=== PATIENT | male | born 1950 | race Caucasian/White ===

== ENCOUNTER 2016-05-14 10:18 | Emergency (ER) | payer OTHER, MEDICARE ==
[~2016-05-14] VITALS: Ht 180.3 cm; Wt 152.0 kg
[~2016-05-14 10:18] MED LIST: ACYC400T PO; BORT3.5V INJ; CEPH500C2 PO; DIPH25TA23 PO; ESCI20TA30 PO; INSU100I14 SQ; INSU300I SQ; LOVA40TA PO; MELO-267 PO; METO25TA6 PO; OLME20TA15 PO; RIVA20TA PO; TORS20TA4 PO; [UNRECOGNIZED DRUG - CODE] PO
[2016-05-14 10:20] VITALS: TEMP 98.3; Ht 180.3 cm; Wt 152.0 kg
--- OUTSIDE RECORDS SUMMARY | 2016-05-14 10:22 | XMS REPORT | Continuity of Care Document ---
Author Author [facility] Organization [facility] Address Unknown Phone Unavailable Allergies Active Description Code Type Severity Reaction Onset Reported/Identified Relationship to Patient Clinical Status Yes No Allergy Information Drug Allergy 05/19/2012 Yes No Known Drug Allergies Drug Allergy 05/19/2012 Yes No Known Medication Allergies NKMA N/A N/A 03/04/2015 Medications Problems Date Dx Coded Attending Type Code Diagnosis Diagnosed By 05/19/2012 Gerard Shi DO Final 250.00 DM2/NOS UNCOMP NSU 05/19/2012 Gerard Shi DO Final 403.90 HTN CKD NOS I-IV/NOS 05/19/2012 Gerard Shi DO Final 585.9 CHRONIC KIDNEY DIS NOS 05/19/2012 Gerard Shi DO Final 808.0 FRACTURE ACETABULUM-CLSD 05/19/2012 Gerard Shi DO Final 808.2 FRACTURE OF PUBIS-CLOSED 05/19/2012 Gerard Shi DO External E849.0 HOME ACCIDENTS 05/19/2012 Gerard Shi DO External E881.0 FALL FROM LADDER Procedures Results Encounters ACCT No. Visit Date/Time Discharge Status Pt. Type Provider Facility Loc./Unit Complaint [id number] 05/19/2012 19:26:00 2012 15:33:00 DIS Inpatient Gerard Shi DO [facility] on [address]
--- OUTSIDE RECORDS SUMMARY | 2016-05-14 10:22 | XMS REPORT | Continuity of Care Document ---
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 If you do not see the information that you expected, contact Release of Information in the Health Information Management department at [phone] for further assistance in locating additional records.[facility] Active Allergies and Adverse Reactions No Known Allergies Current Medications Prescription Sig. Disp. Refills Start End Date Status Date citalopram (CELEXA) 40 mg Take 20 mg by mouth Active tablet daily. metoprolol (LOPRESSOR) 50 Take 50 mg by mouth twice Active mg tablet daily. Febuxostat (ULORIC) 80 mg Take 1 Tab by mouth Active tab daily. DEXTROSE (GLUCOSE PO) Take 1 Tab by mouth as Active Needed. acyclovir (ZOVIRAX) 400 Take 1 Tab by mouth twice 60 Tab 5 10/15/19 Active mg tablet daily. Starting on Day -1 15 LORazepam (ATIVAN) 0.5 mg Take 1-2 Tabs by mouth 45 Tab 0 10/15/19 Active tablet every 6 hours as needed 15 for Nausea, Vomiting or Other... (Anxiety). Do not start until after Benadryl/Ativan pump is discontinued. ondansetron (ZOFRAN) 8 mg Take 1 Tab by mouth every 30 Tab 1 10/15/19 Active tablet 8 hours as needed for 15 Nausea or Vomiting. zolpidem (AMBIEN) 10 mg Take 0.5 Tabs by mouth at 30 Tab 10/15/19 Active tablet bedtime as needed for 15 Sleep. +++HOLD FOR TRANSPLANT+++ melatonin 3 mg tab Take 2 Tabs by mouth at 10/15/19 Active bedtime daily. +++HOLD 15 FOR TRANSPLANT+++ insulin aspart (NOVOLOG) Inject 0-14 Units into 3 box 3 10/19/19 Active 100 unit/mL flexPEN area(s) as directed five 15 times daily. lovastatin(+) (MEVACOR) Take 1 Tab by mouth at 90 Tab 3 10/28/19 Active 40 mg tablet bedtime daily. HOLD 15 DURING TRANSPLANT calcium carbonate-vitamin Take 1 Tab by mouth 10/28/19 Active D3 (CALCIUM 500 + D) daily. +++HOLD FOR 15 1,250 mg (500 mg TRANSPLANT+++ elemental Ca)-400 units tablet Fish Oil-[place]-3 Fatty +++HOLD FOR TRANSPLANT+++ 10/28/19 Active Acids (FISH OIL) 15 300-1,000 mg cap Cholecalciferol (Vitamin +++HOLD FOR TRANSPLANT+++ 10/28/19 Active D3) 2,000 unit cap 15 ascorbic acid (VITAMIN C) Take 1 Tab by mouth 90 Tab 3 10/28/19 Active 500 mg tablet daily. +++HOLD FOR 15 TRANSPLANT+++ MV with Take 1 Tab by mouth 10/28/19 Active Tmi-Oudsblon-Embioi daily. +++HOLD FOR 15 0.4-300-250 mg-mcg-mcg TRANSPLANT+++Kroger tab generic brand similar to Centrum Silver diphenhydrAMINE Take 2 Caps by mouth at 30 Cap 10/28/19 Active (BENADRYL) 25 mg capsule bedtime daily. +++HOLD 15 FOR TRANSPLANT+++ insulin aspart (NOVOLOG) Inject 25 Units into 3 box 3 10/28/19 Active 100 unit/mL flexPEN area(s) as directed three 15 times daily with meals. insulin detemir(+) Inject 30 Units into 10 mL 12 10/28/19 Active (LEVEMIR) 100 unit/mL area(s) as directed 15 soln daily. trimethoprim-sulfamethoxa Take 1 Tab by mouth twice 16 Tab 5 10/28/19 Active zole (BACTRIM DS) 160-800 daily twice weekly. On 15 mg tablet Monday and .Please start on 10/30 [place]isk[place]ren-Hydrochlorothia Take 0.5 Tabs by mouth 10/29/19 Active zide (TEKTURNA HCT) daily. 15 150-12.5 mg tab torsemide(+) (DEMADEX) 20 Take 1 Tab by mouth twice 10/29/19 Active mg tablet daily. 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 Gain of FGFR3 DNA sequence. CMV: positive Cell Source: Peripheral blood, autologous Consents/Studies: 8322, blood, storage, autologous Coordinator: Viola Centeno RN Hyperglycemia 10/15/2014 Elevated serum creatinine 10/15/2014 Type 2 diabetes mellitus without complication (HCC) 10/03/2014 Essential hypertension 10/03/2014 Multiple myeloma (HCC) 09/24/2014 Renal failure 09/24/2014 Resolved Problems Problem Noted Date Resolved Date Neutropenic fever (HCC) 10/24/2014 10/27/2014 Pancytopenia (HCC) 10/23/2014 10/24/2014 Shortness of breath 10/15/2014 10/27/2014 WRIGHT (dyspnea on exertion) 10/15/2014 10/27/2014 Conditioning chemotherapy prior to peripheral blood stem cell transplant 02/201410/19/2014 Social History Tobacco Use Types Packs/Day Years Used Date Never Smoker Smokeless Tobacco: Former Chew Quit: User 09/02/2014 Tobacco Cessation: Ready to Quit: Yes Comments: Alcohol Use Drinks/Week oz/Week Comments No Last Filed Vital Signs Vital Sign Reading Time Taken Blood Pressure 156/56 10/30/2014 10:05 AM CDT Pulse 80 10/30/2014 10:05 AM CDT Temperature 36.8 C (98.2 F) 10/30/2014 10:05 AM CDT Respiratory Rate 18 10/30/2014 10:05 AM CDT Height 1.79 m (5' 10.47") 10/30/2014 10:05 AM CDT Weight 147.8 kg (325 lb 13.4 oz) 10/30/2014 10:05 AM CDT Body Mass Index 46.13 10/30/2014 10:05 AM CDT Oxygen Saturation 96% 10/30/2014 10:05 AM CDT Plan of Care Health Maintenance Due Date Last Done Comments Hepatitis C Screening 1950 Physical (Comprehensive) 1957 Exam Pertussis Vaccine 1961 Tetanus Vaccine 08/16/1967 Dilated Eye Exam 1968 Foot Exam 1968 Hba1c 1968 Microalbumin 1968 Colorectal Cancer 2000 Screening Shingles Vaccine 2010 Prevnar/Pneumovax (#1) 08/16/2015 Influenza Vaccine 10/14/2016 Results from Last 3 Months Not on file
--- OUTSIDE RECORDS SUMMARY | 2016-05-14 10:23 | XMS REPORT ---
Author Author [place] [place] [facility] Kellie, [facility] - Organization Unknown Address Unknown Phone Unavailable Allergies, Adverse Reactions, Alerts * No Latex Allergy. * No IV Contrast Allergy. * No Known Drug Allergies. Problems * Diabetes Mellitus* Status:Active. * Fall Risk* Status:Active. * Mobility Impairment* Status:Active. * Pain* Status:Active. Procedures No Procedures Documented. Medication It is the responsibility of the patient or patient call center support representative to confirm the list of medications with either the patient's personal care provider or the patient's follow-up care provider to ensure the patient has an appropriate list of medications to take at home. Discharge medications* insulin asp prt-insulin aspart (NovoLOG Mix 70-30 FlexPen ) 100 unit/mL (70-30) Insulin Pen, Ordered By: Omero Jennings Directions: sliding scale subcutaneous daily with breakfast * melatonin 300 mcg Tablet, Ordered By: Omero Jennings Directions: 2 tablet oral daily at bedtime * allopurinol 300 mg Tablet, Ordered By: Omero Loveinning Directions: 1 tablet oral daily * zolpidem 10 mg Tablet, Ordered By: Omero Matandinning Directions: 0.5 tablet oral daily at bedtime * aliskiren-hydrochlorothiazide (Tekturna HCT) 150 mg-12.5 mg Tablet, Ordered By : Omero Loveinning Directions: 1 tablet oral daily * torsemide 100 mg Tablet, Ordered By: Omero Loveinning Directions: 0.5 tablet oral daily * citalopram (CeleXA) 40 mg Tablet, Ordered By: Omero Loveinning Directions: 0.5 tablet oral daily * metoprolol tartrate 50 mg Tablet, Ordered By: Omero Loveinning Directions: 1 tablet oral twice a day * lovastatin 40 mg Tablet, Ordered By: Omero Loveinning Directions: 1 tablet oral daily at bedtime * ascorbic acid 1,000 mg Tablet, Ordered By: Omero Glendinning Directions: 1 tablet oral daily * OTC FISH OIL 1,000 MG CAPSULE TAKEN ORALLY DAILY LAST TAKEN AT HOME 05/19/2012 AM * OTC MULTIVITAMIN 1 TABLET TAKEN ORALLY DAILY LAST TAKEN AT HOME 05/19/2012 AM * OTC CALCIUM 500 MG 1 TABLET TAKEN ORALLY DAILY LAST TAKEN AT HOME 05/19/2012 AM * aspirin 325 mg Tablet, Ordered By: Omero Jennings Directions: 0.5 tablet oral daily * HYDROcodone-acetaminophen 5 mg-325 mg Tablet, Ordered By: Omero Jennings Directions: 1-2 TABS oral every four hours PRN MODERATE PAIN * rivaroxaban (Xarelto) 10 mg Tablet, Ordered By: Omero Jennings Directions: 1 tablet oral daily Additional Instructions: X14 DAYS Stopped medications* None Results LAB--BEDSIDE TESTING from 05/19/2012 8:37 PMGlucose NPT 79 mg/dL (70-100 mg/dL) LAB--BEDSIDE TESTING from 05/20/2012 5:56 AMGlucose NPT 177 mg/dL H (70-100 mg/dL ) LAB--BEDSIDE TESTING from 05/20/2012 8:55 PMGlucose NPT 295 mg/dL H (70-100 mg/dL ) LAB--BEDSIDE TESTING from 05/21/2012 12:17 AMGlucose NPT 219 mg/dL H (70-100 mg/ dL) LAB--BEDSIDE TESTING from 05/21/2012 5:11 AMGlucose NPT 215 mg/dL H (70-100 mg/dL ) LAB--BEDSIDE TESTING from 05/21/2012 11:38 AMGlucose NPT 457 mg/dL H (70-100 mg/ dL) LAB--BEDSIDE TESTING from 05/21/2012 3:38 PMGlucose NPT 440 mg/dL H (70-100 mg/dL ) LAB--BEDSIDE TESTING from 05/21/2012 8:14 PMGlucose NPT 186 mg/dL H (70-100 mg/dL ) LAB--BEDSIDE TESTING from 05/22/2012 5:47 AMGlucose NPT 104 mg/dL H (70-100 mg/dL ) LAB--CHEMISTRY from 05/20/2012 5:55 AMAnion Gap 9 (3-20 ) Albumin 2.8 g/dL L (3.5-4.8 g/dL) BUN 47 mg/dL H (4-20 mg/dL) Calcium 8.4 mg/dL L (8.6-10.0 mg/dL) Chloride 102 mEq/L (99-109 mEq/L) CO2 28 mEq/L (22-32 mEq/L) Creatinine 2.01 mg/dL H (0.64-1.27 mg/dL) eGFR 34 A (>60- ) Glucose 169 mg/dL H (70-100 mg/dL) Potassium 4.4 mEq/L (3.6-5.1 mEq/L) Magnesium 2.2 mg/dL (1.8-2.5 mg/dL) Sodium 139 mEq/L (136-144 mEq/L) Phosphorus 4.6 mg/dL (2.4-4.7 mg/dL)
--- OUTSIDE RECORDS SUMMARY | 2016-05-14 10:23 | XMS REPORT | Continuity of Care Document ---
Author Author [facility] Organization [facility] Address Unknown Phone Unavailable Support Name Relationship Address Phone AISSATOU RIGGS MD Caregiver [facility] [address] [place] [address] BRITTANY LINDER [address] [phone] KAREN ESCOBAR II, MD Caregiver [address] [place] [address] [address] [place], [place] [phone] JOSE M CONDE Next Of Kin [address] [id number] Insurance Providers Payer Name Policy Number Subscriber Name Relationship Benefit Management Pcn [id number] Jose M Conde Spouse Advance Directives Directive Response Recorded Date/Time Ordered Resuscitation Status Full Code 08/12/13 5:17pm Problems Medical Problems Problem Onset Date Status Normal colonoscopy 08/13/2013 Active Abnormal findings on esophagogastroduodenoscopy (EGD) 08/13/2013 Active Medications Medication Dose Route Sig Days/Qty Instructions Order Date Discontinued Date Status [Tecturna/Hctz] 300 PO DAILY DOSE IS 300/12.5 MG 01/22/08 08/21/08 Discontinued Insuln Asp Prt/Insulin Aspart 20 - 30 Unit SQ AM 11/24/09 05/14/10 Discontinued Insuln Asp Prt/Insulin Aspart 30 Unit SQ BEFORE MEALS 11/24/09 Active Amlodipine Besylate/Benazepril 1 Cap PO BEDTIME 11/10/09 05/14/10 Discontinued Lovastatin 40 Mg PO BEDTIME 11/24/09 Active Aspirin 162.5 Mg PO DAILY 11/24/09 05/19/12 Discontinued Multivitamins W-Minerals 1 Cap PO DAILY 01/22/08 08/21/08 Discontinued Ascorbic Acid 1,000 Mg PO DAILY 01/22/08 08/21/08 Discontinued [place]-3 Fatty Acids 400 Mg PO THREE TIMES A DAY 01/22/08 08/21/08 Discontinued Aliskiren/Hydrochlorothiazide 1 Tab PO DAILY 11/24/09 05/14/10 Discontinued Torsemide 50 Mg PO DAILY 11/10/09 Active Metoprolol Succinate 50 Mg PO TWICE A DAY 11/24/09 Active Multivitamins 1 Tab PO BEDTIME 11/24/09 Active Ascorbic Acid 1,000 Mg PO DAILY 11/24/09 Active Fish Oil/[place]-3 Fatty Acids 2 Cap PO DAILY 11/10/09 05/14/10 Discontinued Fish Oil/[place]-3 Fatty Acids 1 Cap PO TWICE A DAY 11/24/09 Active Aliskiren/Hydrochlorothiazide 1 Tab PO DAILY 05/14/10 Active Allopurinol 300 Mg PO DAILY 07/06/11 Active Citalopram Hydrobromide 40 Mg PO DAILY 07/06/11 Active Aspirin 0.5 Tab PO DAILY 05/19/12 Active Hydrocodone Bit/Acetaminophen 1-2 Tab PO Q4HPRN 05/22/12 Active Melatonin 600 Mcg PO BEDTIME 05/22/12 Active Zolpidem Tartrate 5 Mg PO BEDTIME 05/22/12 Active Calcium 500 Mg PO DAILY 05/22/12 Active Social History Social History Problem Response Recorded Date/Time Smoking Status Never smoker 08/12/2013 12:50pm Chewing Tobacco Status No 08/12/2013 12:50pm Hx Substance Use No 08/12/2013 12:50pm Hx Alcohol Use No 08/12/2013 12:50pm Has the pt used tobacco in the last 12 months No 08/12/2013 12:50pm Query Response Start Date Stop Date Smoking Status Never smoker Hospital Discharge Instructions No hospital discharge instructions. Plan of Care No plan of care. Functional Status Query Response Date Recorded Physical Hygiene Self August 13, 2013 10:11am Disabilities None August 13, 2013 10:11am Devices Used None August 13, 2013 10:11am Dressing Self August 13, 2013 10:11am Ambulation Self August 13, 2013 10:11am Diet Self August 13, 2013 10:11am Mental Status Alert August 13, 2013 10:11am Disabilities None August 13, 2013 10:11am Devices Used None August 13, 2013 10:11am Physical Hygiene Self August 13, 2013 10:11am Dressing Self August 13, 2013 10:11am Ambulation Self August 13, 2013 10:11am Diet Self August 13, 2013 10:11am Allergies, Adverse Reactions, Alerts Allergen Type Severity Reaction Status Last Updated No Known Drug Allergies Allergy Unknown Active 05/19/12 Immunizations Name Given Type Hx Influenza Vaccination Y FALL 2011 Historical Hx Pneumococcal Vaccination No Historical Hx Tetanus, Diptheria, Pertussis UNKNOWN Historical Hx Influenza Vaccination Y FALL 2011 Historical Hx Tetanus, Diptheria, Pertussis UNKNOWN Historical Vital Signs Acute Vital Signs Vital Response Date/Time Temperature (Fahrenheit) 98.2 deg F (96.8 - 99.1) Temperature (Calculated Celsius) 36.06857 degrees C (36.0 - 37.3) Temperature Source Temporal Pulse Rate (adult) 66 bpm (60 - 100) Respiratory Rate 16 breaths/min (10 - 20) O2 Sat by Pulse Oximetry 94 % (90 - 100) Blood Pressure 128/60 mm Hg Blood Pressure Source Automatic Cuff Height 5 ft 11 in Weight 298 lb Body Mass Index 41.0 kg/m^2 Results Test Source Date Result Interp. Ref. Range Comments Alanine Aminotransferase (ALT/SGPT) October 23, 2012 6:37am 31 U/L N 21-72 Albumin October 23, 2012 6:37am 3.7 G/DL N 3.5-5.0 Albumin/Globulin Ratio October 23, 2012 6:37am 1.1 RATIO N 1.1-2.2 Alkaline Phosphatase October 23, 2012 6:37am 106 U/L N 38-126 Anion Gap October 23, 2012 6:37am 12 MEQ/L N 5-15 Aspartate Amino Transf (AST/SGOT) October 23, 2012 6:37am 24 U/L N 17- 59 BUN/Creatinine Ratio October 23, 2012 6:37am 28 RATIO H 6-26 Band Neutrophils # May 19, 2012 4:52pm 0.3 T/MM3 - Band Neutrophils % May 19, 2012 4:52pm 2.0 % N 0-6 Basophils # (Auto) October 23, 2012 6:37am 0.0 T/MM3 N 0-0.2 COMMENT SCU Basophils # (Manual) January 22, 2010 1:40pm 0.2 T/MM3 N 0-0.2 Basophils % (Manual) January 22, 2010 1:40pm 2.0 % N 0-2 Basophils (%) (Auto) October 23, 2012 6:37am 0.6 % N 0-2 COMMENT SCU Blood Urea Nitrogen October 23, 2012 6:37am 59.0 MG/DL PH 9-20 Calcium Level October 23, 2012 6:37am 8.7 MG/DL N 8.4-10.2 Calculated Osmolality October 23, 2012 6:37am 297 MOSM/KG H 261-280 Carbon Dioxide Level October 23, 2012 6:37am 29 MEQ/L N 22-30 Chloride Level October 23, 2012 6:37am 103 MEQ/L N 98-107 Creatinine October 23, 2012 6:37am 2.1 MG/DL H 0.8-1.5 Differential Total Cells Counted May 18, 2010 5:00am 100 % - Eosinophils # (Auto) October 23, 2012 6:37am 0.3 T/MM3 N 0-0.5 COMMENT SCU Eosinophils # (Manual) May 19, 2012 4:52pm 0.3 T/MM3 N 0-0.5 Eosinophils % (Manual) May 19, 2012 4:52pm 2.0 % N 0-4 Eosinophils (%) (Auto) October 23, 2012 6:37am 4.5 % H 0-4 COMMENT SCU Globulin October 23, 2012 6:37am 3.4 G/DL N 2.4-3.6 Glomerular Filtration Rate Calc October 23, 2012 6:37am 32 - Glucometer August 13, 2013 7:07am 99 mg/dL N 75-110 Glucose Level October 23, 2012 6:37am 145 MG/DL H 75-110 Hematocrit October 23, 2012 6:37am 37.0 % L 41-53 COMMENT SCU Hemoglobin October 23, 2012 6:37am 12.2 GM/DL L 13.5-17.5 COMMENT SCU Hemoglobin A1c May 25, 2012 5:13am 8.3 % H 6-7 <6.0 NON-DIABETIC RANGE6.0-7.0 ADA THERAPEUTIC RANGE >7.0 ACTION SUGGESTED Immature Granulocyte # (Auto) October 23, 2012 6:37am 0.01 T/MM3 N 0.00-0.03 COMMENT SCU Immature Granulocyte % (Auto) October 23, 2012 6:37am 0.2 % N 0.0-0.5 COMMENT SCU Lab Scanned Report February 08, 2010 10:54pm LAB TEST FORM REQUEST [id number] - Lymphocytes # (Auto) October 23, 2012 6:37am 2.0 T/MM3 N 1-4.8 COMMENT SCU Lymphocytes # (Manual) May 19, 2012 4:52pm 0.6 T/MM3 L 1-4.8 Lymphocytes % (Manual) May 19, 2012 4:52pm 4.0 % L 23-45 Lymphocytes (%) (Auto) October 23, 2012 6:37am 29.6 % N 23-45 COMMENT SCU Mean Corpuscular Hemoglobin October 23, 2012 6:37am 30.8 UUG N 26-34 COMMENT SCU Mean Corpuscular Hemoglobin Concent October 23, 2012 6:37am 33.0 GM/DL N 31-37 COMMENT SCU Mean Corpuscular Volume October 23, 2012 6:37am 93.4 UM3 N 80-100 COMMENT SCU Mean Platelet Volume October 23, 2012 6:37am 10.0 UM3 N 9.4-12.4 COMMENT SCU Monocytes # (Auto) October 23, 2012 6:37am 0.7 T/MM3 N 0-0.8 COMMENT SCU Monocytes # (Manual) May 19, 2012 4:52pm 0.7 T/MM3 N 0-0.8 Monocytes % (Manual) May 19, 2012 4:52pm 5.0 % N 0-9.0 Monocytes (%) (Auto) October 23, 2012 6:37am 10.4 % H 0-9.0 COMMENT SCU Neutrophils # (Auto) October 23, 2012 6:37am 3.7 T/MM3 N 1.8-7.7 COMMENT SCU Neutrophils # (Manual) May 19, 2012 4:52pm 12.4 T/MM3 H 1.8-7.7 Neutrophils % (Manual) May 19, 2012 4:52pm 83.0 % H 33-66 Neutrophils (%) (Auto) October 23, 2012 6:37am 54.7 % N 33-66 COMMENT SCU Nucleated Red Blood Cells November 24, 2009 9:07pm 1 - Platelet Count October 23, 2012 6:37am 221 T/MM3 N 130-400 COMMENT SCU Potassium Level October 23, 2012 6:37am 3.7 MEQ/L N 3.6-5 RDW Standard Deviation October 23, 2012 6:37am 42.6 FL N 36.9-50.2 COMMENT SCU Reactive Lymphocytes # May 19, 2012 4:52pm 0.6 T/MM3 H 0-0 Reactive Lymphocytes % May 19, 2012 4:52pm 4.0 % H 0-0 Red Blood Count October 23, 2012 6:37am 3.96 M/MM3 L 4.50-5.90 COMMENT SCU Sodium Level October 23, 2012 6:37am 144 MEQ/L N 134-144 Total Bilirubin October 23, 2012 6:37am 0.30 MG/DL N 0.20-1.30 Total Protein October 23, 2012 6:37am 7.1 G/DL N 6.3-8.2 Urinalysis Comment May 19, 2012 4:43pm Microscopic not ind. - Has specimen been collected/obtained? Y Urine Bilirubin May 19, 2012 4:43pm Negative - Has specimen been collected/obtained? Y Urine Blood May 19, 2012 4:43pm Negative - Has specimen been collected/obtained? Y Urine Collection Type May 19, 2012 4:43pm Voided - Has specimen been collected/obtained? Y Urine Color May 19, 2012 4:43pm Yellow - Has specimen been collected/obtained? Y Urine Glucose (UA) May 19, 2012 4:43pm Negative - Has specimen been collected/obtained? Y Urine Immunofixation 24 Hour November 30, 2009 7:00am Ref lab rpt scanned - --- 12/02/09 1320 ---IMMUR previously reported as: SEND OUT Urine Ketones May 19, 2012 4:43pm Negative - Has specimen been collected/obtained? Y Urine Leukocyte Esterase May 19, 2012 4:43pm Negative - Has specimen been collected/obtained? Y Urine Light Chains, Quantitative November 30, 2009 7:00am Ref lab rpt scanned - --- 12/02/09 1321 ---IMMFREUR previously reported as: SEND OUT Urine Nitrite May 19, 2012 4:43pm Negative - Has specimen been collected/obtained? Y Urine Protein May 19, 2012 4:43pm Negative - Has specimen been collected/obtained? Y Urine Specific [place] May 19, 2012 4:43pm 1.015 - Has specimen been collected/obtained? Y Urine Turbidity May 19, 2012 4:43pm Clear - Has specimen been collected/obtained? Y Urine Urobilinogen May 19, 2012 4:43pm Normal EU/DL - Has specimen been collected/obtained? Y Urine pH May 19, 2012 4:43pm 5.0 - Has specimen been collected/ obtained? Y White Blood Count October 23, 2012 6:37am 6.7 T/MM3 N 4.5-11.0 COMMENT SCU Procedures Procedure Status Date Provider(s) Colonoscopy with polypectomy and biopsy completed 08/13/13 AISSATOU RIGGS MD Esophagogastroduodenoscopy (EGD) with closed biopsy completed 08/13/13 AISSATOU RIGGS MD
--- OUTSIDE RECORDS SUMMARY | 2016-05-14 10:23 | XMS REPORT | Continuity of Care Document ---
Author Author [facility] Organization [facility] Address Unknown Phone Unavailable Support Name Relationship Address Phone KAREN ESCOBAR II, MD Caregiver [address] [place] [address] Unavailable EUN OSMAN DO Caregiver [address] [place] [address] Unavailable JOSE M CONDE Next Of Kin [address] [place] [address] Insurance Providers Guarantor Otis Conde Address [address] [phone] Email [email or web address]) Payer [employer] Policy Number [id number] Subscriber's Name Otis Conde Relationship 18 Self Group Number PLAN Payer Medicare Policy Number [id number] Subscriber's Name Otis Conde Relationship 18 Self Advance Directives Directive Response Recorded Date/Time Advanced Directives Type None 04/18/16 11:15am Ordered Resuscitation Status Full Code 08/12/13 5:17pm Chief Complaint and Reason for Visit Chief Complaint Laceration Reason for Visit [id number] Problems Active Problems Medical Problem Onset Date Status Abnormal findings on esophagogastroduodenoscopy (EGD) 08/13/2013 Acute Dyspnea Unknown Acute Lower extremity edema Unknown Acute Normal colonoscopy 08/13/2013 Acute VTE (venous thromboembolism) Unknown Acute Past Problems Medical Problem Onset Date Chronic renal disease Unknown Diabetes mellitus Unknown Heart failure Unknown Hypertensive urgency Unknown COLLEEN on CPAP Unknown Thumb laceration Unknown Medications Current Home Medications Medication Dose Units Route Directions Days Qty Instructions Start Date Acyclovir 400 Mg Tablet 400 Mg Oral Twice A Day 10/12/15 Bortezomib (Velcade) 3.5 Mg/Vial Vial 3.5 Mg Injection Weekly Cephalexin 500 Mg Capsule 1 Cap Oral Twice A Day 7 Days 14 Capsule Diphenhydramine Hcl 25 Mg Tablet 25 Mg Oral Bedtime 10/12/15 Escitalopram Oxalate 20 Mg Tablet 20 Mg Oral Daily 10/12/15 Insulin Glargine,Hum.rec.anlog (Suzanne Patricio) 300 Unit/1 Ml Insuln.pen 65 Unit Sub-Q Bedtime 10/12/15 Insulin Lispro (Humalog) 100 Unit/1 Ml Insuln.pen 16 Unit Sub-Q Give With Breakfast 10/12/15 Insulin Lispro (Humalog) 100 Unit/1 Ml Insuln.pen 18 Unit Sub-Q Give With Lunch 10/12/15 Insulin Lispro (Humalog) 100 Unit/1 Ml Insuln.pen 30 Unit Sub-Q Give With Supper 10/12/15 Lovastatin (Mevacor) 40 Mg Tablet 40 Mg Oral Bedtime 11/24/09 Melatonin 300 Mcg Tablet 600 Mcg Oral Bedtime 05/22/12 Meloxicam 15 Mg Tablet 15 Mg Oral Daily 10/12/15 Metoprolol Tartrate 25 Mg Tablet 25 Mg Oral Twice Daily With Meals 10/12/15 Olmesartan Medoxomil (Benicar) 20 Mg Tablet 20 Mg Oral Daily Rivaroxaban (Xarelto) 20 Mg Tablet 20 Mg Oral Give With Supper Take 1 tablet, by mouth, daily with evening meal. 10/12/15 Torsemide 20 Mg Tablet 40 Mg Oral Twice A Day Take 2 (20 mg) tablets , by mouth, 1 time a day. 10/12/15 Past Home Medications Medication Directions Ordered Status Aliskiren/Hydrochlorothiazide (Tekturna Hct 300-25 Mg Tablet) 1 Tab Tablet, 1 Tab Oral Daily 11/24/09 Discontinued Amlodipine Besylate/Benazepril (Lotrel 10/40 Mg Capsule) 1 Cap Capsule, 1 Cap Oral Bedtime 11/10/09 Discontinued Ascorbic Acid (Vitamin C) 1,000 Mg Tablet, 1000 Mg Oral Daily 01/22/08 Discontinued Aspirin (Aspir 81) 81 Mg Tablet.dr, 162.5 Mg Oral Daily 11/24/09 Discontinued Fish Oil/Rogers-3 Fatty Acids (Fish Oil 1,000 Mg Capsule) 1 Cap Capsule, 2 Cap Oral Daily 11/10/09 Discontinued Insuln Asp Prt/Insulin Aspart (Novolog Mix 70/30 Flexpen Syrn) 1 Unit Pen, 20 - 30 Unit Sub-Q Am 11/24/09 Discontinued Multivitamins W-Minerals (Multivitamin) 1 Cap Capsule, 1 Cap Oral Daily 01/21 Discontinued Rogers-3 Fatty Acids (Fish Oil) 500 Mg Capsule, 400 Mg Oral Three Times A Day 01/22/08 Discontinued Tecturna/Hctz , 300 Oral Daily 01/22/08 Discontinued Social History Social History Problem Response Recorded Date/Time Onset Date Status Chewing Tobacco Status No 08/12/2013 12:50pm Not Applicable Not Applicable Hx Substance Use No 04/18/2016 11:20am Not Applicable Not Applicable Hx Alcohol Use Yes 04/18/2016 11:20am Not Applicable Not Applicable Has the pt used tobacco in the last 12 months No 08/12/2013 12:50pm Not Applicable Not Applicable Query Response Start Date Stop Date Smoking Status Never smoker Hospital Discharge Instructions No hospital discharge instructions. Plan of Care Discharge Date 04/18/16 1:05pm Disposition 01 DISCHARGED HOME, SELF-CARE Condition at Discharge Improved Instructions/Education Provided Finger Laceration (ED) Prescriptions See Medication Section Referrals KAREN ESCOBAR II, MD Address: [address] [place] [address] [address] [place], [place] [id number] Additional Instructions/Education Suture removal in 12 days in your PCP's office. 04-29-16. Keep clean, wash with soap and water daily, and then apply triple antibiotic ointment and clean dressing. Wear splint for 5-7 days. Follow treatment plan and watch for signs/symptoms of infection (see dismissal packet). Take cephalexin 500mg twice daily for 7 days. Care Plan and Goals Physician Care Plan Problem: Thumb laceration Goal: Follow up with primary care provider Instructions: Take medications and follow care plan as discussed/written Functional Status No functional status results. Allergies, Adverse Reactions, Alerts Allergen Type Severity Reaction Status Last Updated No Known Drug Allergies Allergy Unknown Active 05/19/12 Immunizations Query Response on File Recorded Date/Time Hx Influenza Vaccination Y fall 201107/20/14 3:30pm Hx Pneumococcal Vaccination No 07/20/14 3:30pm Hx Tetanus, Diptheria, Pertussis UNKNOWN 07/20/14 3:30pm Hx Influenza Vaccination Y fall 201107/20/14 3:30pm Hx Tetanus, Diptheria, Pertussis UNKNOWN 07/20/14 3:30pm Tdap Vaccine Hx 2015 PER PT 04/18/16 11:20am Vital Signs Acute Vital Signs Vital Response Date/Time Temperature (Fahrenheit) 97.4 deg F (96.8 - 99.1) 04/18/2016 1:05pm Temperature (Calculated Celsius) 36.99906 degrees C (36.0 - 37.3) 04/18/2016 1:05pm Pulse Rate (adult) 64 bpm (60 - 100) 04/18/2016 1:05pm Respiratory Rate 16 breaths/min (10 - 20) 04/18/2016 1:05pm O2 Sat by Pulse Oximetry 94 % (90 - 100) 04/18/2016 1:05pm Blood Pressure 140/68 mm Hg 04/18/2016 1:05pm Height (Feet) 5 feet 04/18/2016 11:15am Height (Inches) 11.00 inches 04/18/2016 11:15am Weight (Kilograms) 146.300 kg 04/18/2016 11:15am Body Mass Index (BMI) 44.0 04/18/2016 11:15am Results Laboratory Results Test Name Result Units Flags Reference Collection Date/Time Result Date/ Time Comments Icterus Index < 2 0-7 03/31/2016 10:50am 03/31/2016 11:42am Chemistry Specimen Hemolysis < 15 0-25 03/31/2016 10:50am 03/31/2016 11:42am 0-25: Specimen Exhibited No Hemolysis. Turbidity < 20 0-20 03/31/2016 10:50am 03/31/2016 11:42am Sodium Level 140 MEQ/L 134-144 03/31/2016 10:50am 03/31/2016 11:42am Potassium Level 4.5 MEQ/L 3.6-5 03/31/2016 10:50am 03/31/2016 11:42am Chloride Level 100 MEQ/L 98-107 03/31/2016 10:50am 03/31/2016 11:42am Carbon Dioxide Level 32 MEQ/L H 22-30 03/31/2016 10:50am 03/31/2016 11: 42am Anion Gap 8 MEQ/L 5-15 03/31/2016 10:50am 03/31/2016 11:42am Blood Urea Nitrogen 51.0 MG/DL *H 9-20 03/31/2016 10:50am 03/31/2016 11: 48am Creatinine 2.2 MG/DL H 0.8-1.5 03/31/2016 10:50am 03/31/2016 11:42am BUN/Creatinine Ratio 23 RATIO 6-26 03/31/2016 10:50am 03/31/2016 11: 42am Glomerular Filtration Rate Calc 30 03/31/2016 10:50am 03/31/2016 11 :42am Glucose Level 290 MG/DL H 75-110 03/31/2016 10:50am 03/31/2016 11:42am Calculated Osmolality 294 MOSM/KG H 261-280 03/31/2016 10:50am 2016 11:42am Calcium Level 9.0 MG/DL 8.4-10.2 03/31/2016 10:50am 03/31/2016 11:42am Total Bilirubin 0.50 MG/DL 0.20-1.30 03/31/2016 10:50am 03/31/2016 11: 42am Alkaline Phosphatase 88 U/L 38-126 03/31/2016 10:50am 03/31/2016 11: 42am Total Protein 6.6 G/DL 6.3-8.2 03/31/2016 10:50am 03/31/2016 11:42am Albumin 3.7 G/DL 3.5-5.0 03/31/2016 10:50am 03/31/2016 11:42am Globulin 2.9 G/DL 2.4-3.6 03/31/2016 10:50am 03/31/2016 11:42am Albumin/Globulin Ratio 1.3 RATIO 1.1-2.2 03/31/2016 10:50am 03/31/2016 11:42am Aspartate Amino Transf (AST/SGOT) 19 U/L 17-59 03/31/2016 10:50am 03/31 11:42am Alanine Aminotransferase (ALT/SGPT) 29 U/L 21-72 03/31/2016 10:50am 11:42am White Blood Count 7.3 T/MM3 4.5-11.0 04/14/2016 10:35am 04/14/2016 11: 02am Red Blood Count 3.91 M/MM3 L 4.50-5.90 04/14/2016 10:35am 04/14/2016 11: 02am Hemoglobin 11.8 GM/DL L 13.5-17.5 04/14/2016 10:35am 04/14/2016 11:02am Hematocrit 37.2 % L 41-53 04/14/2016 10:35am 04/14/2016 11:02am Mean Corpuscular Volume 95.1 UM3 80-100 04/14/2016 10:35am 04/14/2016 11:02am Mean Corpuscular Hemoglobin 30.2 UUG 26-34 04/14/2016 10:35am 2016 11:02am Mean Corpuscular Hemoglobin Concent 31.7 GM/DL 31-37 04/14/2016 10:35am 04/14/2016 11:02am RDW Standard Deviation 46.6 FL 36.9-50.2 04/14/2016 10:35am 04/14/2016 11:02am Platelet Count 181 T/MM3 130-400 04/14/2016 10:35am 04/14/2016 11:02am Mean Platelet Volume 10.0 UM3 9.4-12.4 04/14/2016 10:35am 04/14/2016 11 :02am Neutrophils (%) (Auto) 67.8 % H 33-66 04/14/2016 10:35am 04/14/2016 11: 02am Lymphocytes (%) (Auto) 19.7 % L 23-45 04/14/2016 10:35am 04/14/2016 11: 02am Monocytes (%) (Auto) 7.9 % 0-9.0 04/14/2016 10:35am 04/14/2016 11:02am Eosinophils (%) (Auto) 3.8 % 0-4 04/14/2016 10:35am 04/14/2016 11:02am Basophils (%) (Auto) 0.4 % 0-2 04/14/2016 10:35am 04/14/2016 11:02am Immature Granulocyte % (Auto) 0.4 % 0.0-0.5 04/14/2016 10:35am 2016 11:02am Absolute Neutrophils (auto) 4.9 T/MM3 1.8-7.7 04/14/2016 10:35am 2016 11:02am Absolute Lymphocytes (auto) 1.4 T/MM3 1-4.8 04/14/2016 10:35am 2016 11:02am Absolute Monocytes (auto) 0.6 T/MM3 0-0.8 04/14/2016 10:35am 2016 11:02am Absolute Eosinophils (auto) 0.3 T/MM3 0-0.5 04/14/2016 10:35am 2016 11:02am Absolute Basophils (auto) 0.0 T/MM3 0-0.2 04/14/2016 10:35am 2016 11:02am Absolute Immature Granulocyte (auto 0.03 T/MM3 0.00-0.03 04/14/2016 10: 35am 04/14/2016 11:02am Procedures Procedure Status Date Provider(s) Extremity study Completed 03/29/16 Encounters Encounter Location Arrival/Admit Date Discharge/Depart Date Attending Provider Departed Emergency Room [facility] 04/18/16 11:14am 04/18/16 1: 05pm EUN OSMAN DO Registered Referred [facility] 04/14/16 10:44am ESCOBAR IIKAREN MD Registered Referred [facility] 04/07/16 10:53am ESCOBAR IIKAREN MD Registered Referred [facility] 03/31/16 11:07am ESCOBAR IIKAREN MD Registered Clinic [facility] 03/29/16 3:49pm ESCOBAR IIKAREN MD Registered Referred [facility] 03/24/16 10:53am ESCOBAR IIKAREN MD Registered Referred [facility] 03/17/16 10:17am ESCOBAR IIKAREN MD Registered Referred [facility] 03/10/16 11:03am ESCOBAR IIKAREN MD Registered Referred [facility] 03/03/16 10:36am ESCOBAR IIKAREN MD Registered Referred [facility] 02/25/16 10:44am ESCOBAR IIKAREN MD Registered Referred [facility] 02/18/16 10:21am ESCOBAR IIKAREN MD Registered Referred [facility] 02/11/16 10:01am ESCOBAR IIKAREN MD Registered Referred [facility] 02/04/16 10:45am ESCOBAR IIKAREN MD Registered Referred [facility] 01/28/16 9:43am ESCOBAR IIKAREN MD Registered Referred [facility] 01/21/16 11:02am ESCOBAR IIKAREN MD Recent Diagnosis
[2016-05-14] MEDS ORDERED: IBUP-1724 PO (10:54)
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
--- OUTSIDE RECORDS SUMMARY | 2016-05-14 11:36 | XMS REPORT | Continuity of Care Document ---
Author Author [facility] Organization [facility] Address Unknown Phone Unavailable Care Team Providers Care Tree Killer Name Role Phone Marcela Zhegn Primary Care Physician [phone] Source Comments Some departments are not documenting in the electronic medical record. If you do not see the information that you expected, contact Release of Information in the Health Information Management department at [phone] for further assistance in locating additional records.[facility] Active Allergies and Adverse Reactions No Known [...] mg TRANSPLANT+++ elemental Ca)-400 units tablet Fish Oil-Charlotte-3 Fatty +++HOLD FOR TRANSPLANT+++ 10/28/19 Active Acids (FISH OIL) 15 300-1,000 mg cap Cholecalciferol (Vitamin +++HOLD FOR TRANSPLANT+++ 10/28/19 Active D3) 2,000 unit cap 15 ascorbic acid (VITAMIN C) Take 1 Tab by mouth 90 Tab 3 10/28/19 Active 500 mg tablet daily. +++HOLD FOR 15 TRANSPLANT+++ MV with Take 1 Tab by mouth 10/28/19 Active Iuv-Silyffak-Nscfow daily. +++HOLD FOR 15 0.4-300-250 mg-mcg-mcg TRANSPLANT+++Kroger [...] ISS stage 3 Disease Status at Transplant: [place] Cytogenetic/FISH at DIAGNOSIS:46,XY[20], FISH: Gain of chromosome [...]
[2016-05-14] MEDS ORDERED: HYDROCODONE/APAP 5 mg/325 mg TABLET PO ONE (11:45)
[2016-05-14] MEDS ORDERED: KETOROLAC 60mg/2ml INJECTION IM ONE (11:45)
--- NOTE | 2016-05-14 11:58 | NUR ---
BACK FROM XRAY
--- NOTE | 2016-05-14 12:40 | NUR ---
BLOOD SUGAR PT. CONCERNED ABOUT WHAT HIS BLOOD SUGAR IS SINCE IT IS LUNCH TIME. BGM DONE AND READS 164. PT. STATES THAT HE IS GOOD.
[2016-05-14] MEDS ORDERED: HYDROMORPHONE 2mg/ml INJECTION IM ONE (12:45)
[2016-05-14 13:11] LABS: BASOPHILS % (AUTO) 0.1 % (0-2); EOSINOPHILS % (AUTO) 0.1 % (0-4); HCT - HEMATOCRIT 35.5 % (41-53); HGB - HEMOGLOBIN 11.6 GM/DL (13.5-17.5); IMMATURE GRANULOCYTE # (AUTO) 0.04 T/MM3 (0.00-0.03); IMMATURE GRANULOCYTE % (AUTO) 0.4 % (0.0-0.5); LYMPHOCYTES # (AUTO) 1.2 T/MM3 (1-4.8); LYMPHOCYTES % (AUTO) 12.2 % (23-45); MEAN CORPUSCULAR HGB 30.9 UUG (26-34); MEAN CORPUSCULAR HGB CONC(MCHC 32.7 GM/DL (31-37); MEAN CORPUSCULAR VOLUME 94.7 UM3 (80-100); MEAN PLATELET VOLUME 10.6 UM3 (9.4-12.4); MONOCYTES # (AUTO) 0.8 T/MM3 (0-0.8); NEUTROPHILS #(AUTO)-ABSOLUTE 7.5 T/MM3 (1.8-7.7); NEUTROPHILS % (AUTO) 79.2 % (33-66); RED BLOOD COUNT 3.75 M/MM3 (4.50-5.90); WBC - WHITE BLOOD COUNT 9.5 T/MM3 (4.5-11.0)
[2016-05-14 13:15] LABS: ALBUMIN 3.9 G/DL (3.5-5.0); ALBUMIN/GLOBULIN RATIO 1.3 RATIO (1.1-2.2); ALKALINE PHOSPHATASE 85 U/L (38-126); ALT (SGPT) 37 U/L (21-72); ANION GAP 11 MEQ/L (5-15); AST (SGOT) 33 U/L (17-59); BUN/CREATININE RATIO 24 RATIO (6-26); CALCIUM 9.1 MG/DL (8.4-10.2); CHLORIDE 104 MEQ/L (98-107); CO2 - CARBON DIOXIDE 30 MEQ/L (22-30); CREATININE 2.2 MG/DL (0.8-1.5); GLOMERULAR FILTRATION RATE 30; GLUCOSE 178 MG/DL (75-110); POTASSIUM 4.2 MEQ/L (3.6-5); SODIUM 145 MEQ/L (134-144); TOTAL PROTEIN 6.9 G/DL (6.3-8.2)
[2016-05-14] MEDS ORDERED: METH-310 PO (13:37)
[2016-05-14] MEDS ORDERED: HYDR2TAB56 PO (13:37)
[2016-05-14] MEDS ORDERED: MELO15TA12 PO (13:38)
[2016-05-14 13:50] VITALS: BP 129/59; PULSE 69; RESP 16; O2SAT 90
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
== END 2016-05-14 13:50 | disposition home or self-care (01) ==
LOC: ED 10:18
DX: S39.012A Strain of muscle, fascia and tendon of lower back, initial encounter (principal); E11.9 Type 2 diabetes mellitus without complications; Z79.4 Long term (current) use of insulin; V47.0XXA Car driver injured in collision with fixed or stationary object in nontraffic accident, initial encounter; Y93.89 Activity, other specified; Y92.488 Other paved roadways as the place of occurrence of the external cause; Y99.8 Other external cause status
CPT/HCPCS: 36415; 72100; 80053; 82948; 85025; 96372; 99283; J1170; J1885

== ENCOUNTER → 2016-05-30 | Outpatient (CLI) | payer OTHER, MEDICARE ==
[~2016-05-30] MED LIST changes: +ATOR40TA64 PO; -CEPH500C2 PO; +CYCL-375 PO; +DIPH50CA4 PO; +DOCU-168 PO; +HYDR-3989 PO; +HYDR2TAB56 PO; +HYDR4TAB84 PO; +IBUP-1724 PO; +LIDO700A3 TD; +LIDOCAINE PATCH TD; +LORA0.5T86 PO; +MELO15TA12 PO; +METH-310 PO; +ONDA4TAB10 PO; +TRAZ150T80 PO; +milk of magnesia PO
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
== END ==
LOC: IMA 15:01
PROVIDERS: ATTEND Family Medicine
DX: S22.081A Stable burst fracture of T11-T12 vertebra, initial encounter for closed fracture (principal); V49.9XXA Car occupant (driver) (passenger) injured in unspecified traffic accident, initial encounter; M48.04 Spinal stenosis, thoracic region; R93.7 Abnormal findings on diagnostic imaging of other parts of musculoskeletal system; M47.896 Other spondylosis, lumbar region; M54.5 Low back pain

== ENCOUNTER 2016-05-31 10:20 | Emergency (ER) | payer OTHER, MEDICARE ==
[~2016-05-31] VITALS: Ht 180.3 cm; Wt 147.3 kg
[~2016-05-31 10:20] MED LIST changes: -ATOR40TA64 PO; -CYCL-375 PO; -DIPH50CA4 PO; -DOCU-168 PO; -HYDR-3989 PO; -HYDR4TAB84 PO; -LIDO700A3 TD; -LIDOCAINE PATCH TD; -LORA0.5T86 PO; -ONDA4TAB10 PO; -TRAZ150T80 PO; -milk of magnesia PO
[2016-05-31 10:22] VITALS: TEMP 98.5; Ht 180.3 cm; Wt 147.3 kg
--- OUTSIDE RECORDS SUMMARY | 2016-05-31 10:24 | XMS REPORT | Continuity of Care Document ---
Author Author [facility] Organization [facility] Address Unknown Phone Unavailable Allergies Active Description [...] Status Pt. Type Provider Facility Loc./Unit Complaint [id number] 05/19/2012 19:26:00 2012 15:33:00 DIS Inpatient Gerard Shi DO [facility] on [address]
--- OUTSIDE RECORDS SUMMARY | 2016-05-31 10:24 | XMS REPORT | Continuity of Care Document ---
Author Author [facility] Organization [facility] Address Unknown Phone Unavailable Care Team Providers Care Stretcher Helper Name Role Phone Marcela Zheng Primary Care Physician [phone] Source Comments Some departments are not documenting in the electronic medical record. If you do not see the information that you expected, contact Release of Information in the Health Information Management department at [phone] for further assistance in locating additional records.[facility] Active Allergies and Adverse Reactions No [...] mg TRANSPLANT+++ elemental Ca)-400 units tablet Fish Oil-[place]-3 Fatty +++HOLD FOR TRANSPLANT+++ 10/28/19 Active Acids (FISH OIL) 15 300-1,000 mg cap Cholecalciferol (Vitamin +++HOLD FOR TRANSPLANT+++ 10/28/19 Active D3) 2,000 unit cap 15 ascorbic acid (VITAMIN C) Take 1 Tab by mouth 90 Tab 3 10/28/19 Active 500 mg tablet daily. +++HOLD FOR 15 TRANSPLANT+++ MV with Take 1 Tab by mouth 10/28/19 Active Noo-Nimqrway-Ulqvzw daily. 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
--- OUTSIDE RECORDS SUMMARY | 2016-05-31 10:25 | XMS REPORT | Continuity of Care Document ---
Author Author [facility] Organization [facility] Address Unknown Phone Unavailable Support Name Relationship Address Phone AISSATOU RIGGS MD Caregiver [facility] [address] [place] [address] BRITTANY LINDER [address] [phone] KAREN ESCOBAR II, MD Caregiver [address] [place] [address] [address] [place], [place] [phone] JOSE M CONDE Next Of Kin [address] [id number] Insurance Providers Payer Name Policy Number Subscriber Name Relationship Benefit Management Pcn [id number] Jose M Conde Spouse Advance Directives Directive [...] 1,000 Mg PO DAILY 01/22/08 08/21/08 Discontinued [place]-3 Fatty Acids 400 Mg PO THREE TIMES A DAY 01/22/08 08/21/08 Discontinued Aliskiren/Hydrochlorothiazide 1 Tab PO DAILY 11/24/09 05/14/10 Discontinued Torsemide 50 Mg PO DAILY 11/10/09 Active Metoprolol Succinate 50 Mg PO TWICE A DAY 11/24/09 Active Multivitamins 1 Tab PO BEDTIME 11/24/09 Active Ascorbic Acid 1,000 Mg PO DAILY 11/24/09 Active Fish Oil/[place]-3 Fatty Acids 2 Cap PO DAILY 11/10/09 05/14/10 Discontinued Fish Oil/[place]-3 Fatty Acids 1 Cap PO TWICE A [...] F (96.8 - 99.1) Temperature (Calculated Celsius) 36.59504 degrees C (36.0 - 37.3) Temperature Source [...] 08, 2010 10:54pm LAB TEST FORM REQUEST [id number] - Lymphocytes # (Auto) October 23, 2012 [...] Has specimen been collected/obtained? Y Urine Specific [place] May 19, 2012 4:43pm 1.015 - Has [...]
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
--- OUTSIDE RECORDS SUMMARY | 2016-05-31 10:25 | XMS REPORT ---
Author Author [facility] Kellie, [facility] Organization Unknown Address Unknown Phone Unavailable Allergies, Adverse Reactions, Alerts * No Latex Allergy. * No IV Contrast Allergy. * No Known Drug Allergies. Problems * Diabetes Mellitus* Status:Active. * Fall Risk* Status:Active. * Mobility Impairment* Status:Active. * Pain* Status:Active. Procedures No Procedures Documented. Medication It is the responsibility of the patient or patient benefits representative to confirm the list of medications [...]
[2016-05-31] MEDS ORDERED: ATOR40TA64 PO (10:45)
[2016-05-31] MEDS ORDERED: TRAZ150T80 PO (10:45)
[2016-05-31] MEDS ORDERED: CYCL-375 PO (10:45)
--- NOTE | 2016-05-31 10:50 | NUR ---
PHYSICIAN VISIT DR. BHATIA IN TO SEE PATIENT.
[2016-05-31] MEDS ORDERED: LIDOCAINE PATCH TD (10:52)
[2016-05-31] MEDS ORDERED: HYDROMORPHONE 2mg/ml INJECTION IV ONE (11:00)
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
--- OUTSIDE RECORDS SUMMARY | 2016-05-31 11:13 | XMS REPORT | Continuity of Care Document ---
Author Author [facility] Organization [facility] Address Unknown Phone Unavailable Care Team Providers Care Turret Lathe Operator Name Role Phone Marcela Zheng Primary Care Physician [phone] Source Comments Some departments are not documenting in the electronic medical record. If you do not see the information that you expected, contact Release of Information in the Health Information Management department at [phone] for further assistance in locating additional records.[facility] Active Allergies and Adverse Reactions No [...] mg TRANSPLANT+++ elemental Ca)-400 units tablet Fish Oil-[place]-3 Fatty +++HOLD FOR TRANSPLANT+++ 10/28/19 Active Acids (FISH OIL) 15 300-1,000 mg cap Cholecalciferol (Vitamin +++HOLD FOR TRANSPLANT+++ 10/28/19 Active D3) 2,000 unit cap 15 ascorbic acid (VITAMIN C) Take 1 Tab by mouth 90 Tab 3 10/28/19 Active 500 mg tablet daily. +++HOLD FOR 15 TRANSPLANT+++ MV with Take 1 Tab by mouth 10/28/19 Active Pqt-Mtspxirg-Mokfon daily. 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
--- OUTSIDE RECORDS SUMMARY | 2016-05-31 11:14 | XMS REPORT ---
Author Author [facility] Kellie, [facility] - Organization Unknown Address Unknown Phone Unavailable Allergies, Adverse Reactions, Alerts * No Latex Allergy. * No IV Contrast Allergy. * No Known Drug Allergies. Problems * Diabetes Mellitus* Status:Active. * Fall Risk* Status:Active. * Mobility Impairment* Status:Active. * Pain* Status:Active. Procedures No Procedures Documented. Medication It is the responsibility of the patient or patient medical representative to confirm the list of medications [...]
--- OUTSIDE RECORDS SUMMARY | 2016-05-31 11:14 | XMS REPORT | Continuity of Care Document ---
Author Author [facility] Organization [facility] Address Unknown Phone Unavailable Allergies Active Description [...] Status Pt. Type Provider Facility Loc./Unit Complaint [id number] 05/19/2012 19:26:00 2012 15:33:00 DIS Inpatient Gerard Shi DO [facility] on [address]
--- OUTSIDE RECORDS SUMMARY | 2016-05-31 11:14 | XMS REPORT | Continuity of Care Document ---
Author Author [facility] Organization [facility] Address Unknown Phone Unavailable Support Name Relationship Address Phone AISSATOU RIGGS MD Caregiver [facility] [address] [place] [address] BRITTANY LIND[address] [phone] KAREN ESCOBAR II, MD Caregiver [address] [place] [address] [address] [place], [place] [phone] JOSE M CONDE Next Of Kin [address] [id number] Insurance Providers Payer Name Policy Number Subscriber Name Relationship Benefit Management Pcn [id number] Jose M Conde Spouse Advance Directives Directive [...] 1,000 Mg PO DAILY 01/22/08 08/21/08 Discontinued [place]-3 Fatty Acids 400 Mg PO THREE TIMES A DAY 01/22/08 08/21/08 Discontinued Aliskiren/Hydrochlorothiazide 1 Tab PO DAILY 11/24/09 05/14/10 Discontinued Torsemide 50 Mg PO DAILY 11/10/09 Active Metoprolol Succinate 50 Mg PO TWICE A DAY 11/24/09 Active Multivitamins 1 Tab PO BEDTIME 11/24/09 Active Ascorbic Acid 1,000 Mg PO DAILY 11/24/09 Active Fish Oil/[place]-3 Fatty Acids 2 Cap PO DAILY 11/10/09 05/14/10 Discontinued Fish Oil/[place]-3 Fatty Acids 1 Cap PO TWICE A [...] F (96.8 - 99.1) Temperature (Calculated Celsius) 36.57062 degrees C (36.0 - 37.3) Temperature Source [...] 08, 2010 10:54pm LAB TEST FORM REQUEST [id number] - Lymphocytes # (Auto) October 23, 2012 [...] Has specimen been collected/obtained? Y Urine Specific [place] May 19, 2012 4:43pm 1.015 - Has [...]
[2016-05-31] MEDS ORDERED: NORMAL SALINE 1,000 ML IV ONE (11:15)
--- NOTE | 2016-05-31 11:20 | NUR ---
FSBS FINGER STICK BLOOD SUGAR 62. AMP OF D50 ORDERED PER DR. BHATIA.
[2016-05-31 11:23] LABS: BASOPHILS % (AUTO) 0.2 % (0-2); EOSINOPHILS # (AUTO) 0.1 T/MM3 (0-0.5); EOSINOPHILS % (AUTO) 2.2 % (0-4); HCT - HEMATOCRIT 37.4 % (41-53); HGB - HEMOGLOBIN 11.8 GM/DL (13.5-17.5); IMMATURE GRANULOCYTE # (AUTO) 0.01 T/MM3 (0.00-0.03); IMMATURE GRANULOCYTE % (AUTO) 0.2 % (0.0-0.5); LYMPHOCYTES # (AUTO) 1.2 T/MM3 (1-4.8); LYMPHOCYTES % (AUTO) 22.2 % (23-45); MEAN CORPUSCULAR HGB 30.6 UUG (26-34); MEAN CORPUSCULAR HGB CONC(MCHC 31.6 GM/DL (31-37); MEAN CORPUSCULAR VOLUME 96.9 UM3 (80-100); MEAN PLATELET VOLUME 9.1 UM3 (9.4-12.4); MONOCYTES # (AUTO) 0.6 T/MM3 (0-0.8); MONOCYTES % (AUTO) 11.4 % (0-9.0); NEUTROPHILS #(AUTO)-ABSOLUTE 3.5 T/MM3 (1.8-7.7); NEUTROPHILS % (AUTO) 63.8 % (33-66); RED BLOOD COUNT 3.86 M/MM3 (4.50-5.90); WBC - WHITE BLOOD COUNT 5.4 T/MM3 (4.5-11.0)
--- NOTE | 2016-05-31 11:23 | NUR ---
TRANSFER THIS NURSE SPOKE WITH PATIENT PRESS WORKER HELPER FROM [facility]. WILL CALL BACK WITH ROOM ASSIGNMENT.
[2016-05-31] MEDS ORDERED: DEXTROSE 50% SYRINGE 50ml (Eq. 1 AMP) IV ONE (11:30)
[2016-05-31 11:33] LABS: ANION GAP 11 MEQ/L (5-15); BUN/CREATININE RATIO 27 RATIO (6-26); CALCIUM 9.1 MG/DL (8.4-10.2); CHLORIDE 102 MEQ/L (98-107); CO2 - CARBON DIOXIDE 34 MEQ/L (22-30); CREATININE 1.8 MG/DL (0.8-1.5); GLOMERULAR FILTRATION RATE 38; GLUCOSE 69 MG/DL (75-110); POTASSIUM 3.6 MEQ/L (3.6-5); SODIUM 147 MEQ/L (134-144)
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
--- NOTE | 2016-05-31 11:48 | NUR ---
[facility] ARRIVED TO TRANSPORT PATIENT.
[2016-05-31 11:55] VITALS: BP 164/76; PULSE 72; RESP 16; O2SAT 94
--- NOTE | 2016-05-31 11:58 | NUR ---
REPORT REPORT CALLED TO [facility].
--- NOTE | 2016-05-31 12:00 | NUR ---
DEPARTED PATIENT DEPARTED ED VIA EMS.
== END 2016-05-31 12:00 | disposition short-term general hospital (02) ==
LOC: ED 10:20
DX: S22.081A Stable burst fracture of T11-T12 vertebra, initial encounter for closed fracture (principal); E11.9 Type 2 diabetes mellitus without complications; Z79.4 Long term (current) use of insulin; V89.2XXA Person injured in unspecified motor-vehicle accident, traffic, initial encounter; Y93.89 Activity, other specified; Y92.410 Unspecified street and highway as the place of occurrence of the external cause; Y99.8 Other external cause status
CPT/HCPCS: 80048; 85025; 96374; 96375; 99285; J1170; J7030

== ENCOUNTER 2016-06-06 17:07 | Inpatient (IN) | payer OTHER, MEDICARE ==
[~2016-06-06] VITALS: Ht 180.3 cm; Wt 139.6 kg
[~2016-06-06 17:07] MED LIST changes: +ATOR40TA64 PO; -BORT3.5V INJ; +CYCL-375 PO; -DIPH25TA23 PO; +LIDOCAINE PATCH TD; -LOVA40TA PO; -MELO-267 PO; -MELO15TA12 PO; -METH-310 PO; -OLME20TA15 PO; +TRAZ150T80 PO; -[UNRECOGNIZED DRUG - CODE] PO
--- OUTSIDE RECORDS SUMMARY | 2016-06-06 17:12 | XMS REPORT | Continuity of Care Document ---
Author Author Deysi Santos [facility] Address Unknown Phone Unavailable Care Team Providers Care Cafe Site Attendant Name Role Phone KAREN ESCOBAR M.D. Primary Care Physician [phone] Insurance Providers Guarantor Otis Conde Address [address] [place] [address] Payer Auto Insurance Policy Number [id number] Subscriber's Name Otis Conde Relationship 01 Self / Same As Patient Group Number AGENT [id number] Group Name [id number] Payer Wps Medicare Policy Number [id number] Subscriber's Name Otis Conde Relationship 01 Self / Same As Patient Payer Other1 Policy Number [id number] Subscriber's Name SohamRay Tamiko Relationship 01 Self / Same As Patient Group Name PLAN G Advance Directives Directive Response Recorded Date/Time Patient Resuscitation Status Full Code 05/31/16 1:33pm Advance Directives Yes 05/31/16 1:33pm Living Will Yes 05/31/16 1:33pm Health Care Power of Inward Toll Operator Yes 05/31/16 1:33pm Problems Active Problems Medical Problem Onset Date Status Burst fracture of thoracic vertebra Unknown CKD (chronic kidney disease) Unknown Diabetes mellitus Unknown Hx of deep venous thrombosis Unknown Multiple myeloma Unknown Medications Current Home Medications Medication Dose Units Route Directions Days Qty Instructions Start Date Acyclovir 400 Mg Tab 400 Mg Oral Twice A Day for Not Specified Atorvastatin Calcium 40 Mg Tab 40 Mg Oral Daily for Not Specified 05/31/16 Cyclobenzaprine Hcl (Flexeril 10 Mg) 10 Mg Tab 10 Mg Oral Three Times A Day for Pain 05/31/16 Escitalopram Oxalate 20 Mg Tab 20 Mg Daily for Not Specified Hydrocodone-Acetaminophen 5MG/325MG Tab 0 Ea Oral Every 4 Hours as needed for Pain 30 Days 30 Tablet 06/06/16 Hydromorphone Hcl 4 Mg Tab 4 Mg Oral Four Times Daily for Pain Insulin Glargine (Toujeo Solostar) 300 Unit/Ml Inj 40 Mg Subcutaneously Bedtime for Not Specified 05/31/16 Insulin Lispro (Human) (Humalog Kwikpen) 100 Unit/Ml Inj 18 Subcutaneously Three Times Daily Before Meals for Not Specified 05/31 Lidocaine Patch 5% 1 Patch Topically Every 12 Hours As Needed for Pain 05/31/16 Metoprolol Tartrate 25 Mg Tab 25 Mg Oral Twice A Day for Not Specified 05/31/16 Ondansetron (Ondansetron Odt) 4 Mg Tab 4 Mg Oral Every 6 Hours as needed for Nausea And/Or Vomiting 30 Days 30 Tablet 06/06/16 Rivaroxaban (Xarelto) 15 Mg Tab 15 Mg Oral Daily for Anticoagulation 05/31/16 Torsemide 20 Mg Tab 40 Mg Oral Daily for Not Specified 05/31/16 Trazodone Hcl 150 Mg Tab 150 Mg Oral Bedtime for Not Specified Social History Social History Problem Response Recorded Date/Time Onset Date Status Smoking Status Never smoker 05/31/2016 1:33pm Not Applicable Not Applicable Query Response Start Date Stop Date Smoking Status Never smoker Hospital Discharge Instructions Medication Information Medication information Medications taken today: 8:13 demadex, colace, lopressor, lexapro, lipitor, zovirax, 2:19 flexeril Discharge Instructions Provider Instructions Dismiss Date: Jun 06, 2016 Dismiss: [facility] Diet: As Tolerated Activity: As Tolerated Physician Follow-up Appt #1: Dr Jovel [phone] F/U Appt: One Week Physician Follow-up Appt #2: Escobar, Karen M.D. F/U Appt: One Week Discharge Instructions Signs/Symptoms -notify Doctor: Fever above 101 deg, Nausea/Vomiting, Shortness of Breath, Chilling, Cold Extremity, No appetite, Wheezing Nursing Instructions Physician Follow-up Appointment: Dr Jovel [phone] Call for Appointment: No Signs and Symptoms to notify your Doctor about:: Fever above 101 deg, Chest Pain , Redness, Drainage, Shortness of Breath, Uncontrolled Pain, Chilling, Numbness/Tingling, No appetite, Wheezing, Reaction to Medication Special Instructions: No Heavy Lifting Other Special Instructions: see d/c instructions on brace and restrictions Diet: As Tolerated Plan of Care Discharge Date 06/06/16 4:05pm Disposition 03 XFER SNF Prescriptions See Medication Section Care Plan and Goals See Discharge Instructions Section Functional Status Query Response Date Recorded FUNCTIONAL ACTIVITIES: Supine to Sit Ability 6/7 Modified [place] June 06, 2016 2:37pm Overall Activities Daily Living Ability/Staff Support Independ/No setup help May 31, 2016 1:53pm Toileting Ability/Staff Support Independ/Setup help only June 04, 2016 10:45pm Oral Care Ability/Staff Support Independ/No setup help June 06, 2016 7:04am Upper Body Dressing Ability/Staff Support Limited/One person assist June 04, 2016 10:45pm Lower Body Dressing Ability/Staff Support Activity did not occur June 04, 2016 10:45pm Bed Mobility Ability (general) 4/7 Minimal Contct Assist June 03, 2016 1:23pm Bed Mobility Rolling Ability 4/7 Minimal Contct Assist June 03, 2016 1:23pm Bed Mobility Sit to Supine Ability 4/7 Minimal Contct Assist June 03, 2016 1:23pm Bed Mobility Supine to Sit Ability 4/7 Minimal Contct Assist June 03, 2016 1:23pm Bed Transfer Ability 4/7 Minimal Contct Assist June 03, 2016 12:15pm Chair Transfer Ability 4/7 Minimal Contct Assist June 03, 2016 1:24pm Memory Description 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 Immunizations Query Response on File Recorded Date/Time Pneumonia Vaccine Received Yes 05/31/16 1:52pm Had a Tetanus Toxoid Vaccination less than 10yrs ago Yes 05/31/16 1:53pm Vital Signs Acute Vital Signs Vital Response Date/Time Blood Pressure 152/63 mm Hg 06/06/2016 7:04am Blood Pressure Mean 93 mm Hg 06/02/2016 9:30pm Blood Pressure Mean 92 mm Hg 06/06/2016 7:04am Temperature (Fahrenheit) 98.8 degrees F (96.0 - 99.9) 06/06/2016 7:04am Temperature (Calculated Celsius) 37.38160 degrees C 06/06/2016 7:04am Temperature Source Oral 06/06/2016 7:04am Temp 97.8 degrees F (96.0 - 99.9) 06/02/2016 9:40pm Temperature (Calculated Celsius) 36.66768 degrees C 06/02/2016 9:40pm Pulse Pulse Rate (adult) 85 bpm (60 - 100) 06/06/2016 7:04am Pulse Rate (adult) 85 bpm (60 - 100) 06/02/2016 9:30pm Respiratory Rate 17 breaths per minute (10 - 20) 06/06/2016 7:04am Respiratory Rate 18 bpm (10 - 20) 06/02/2016 9:30pm Height (Feet) 5 ft 05/31/2016 1:14pm Height (Inches) 11.0 in. 05/31/2016 1:14pm Weight (Pounds) 329.3 lbs 05/31/2016 1:14pm Height 5 ft 11 in 05/31/2016 1:14pm Weight 329.30 lb 05/31/2016 1:14pm Body Mass Index 45.9 kg/m^2 05/31/2016 1:14pm Results Laboratory Results Test Name Result Units Flags Reference Collection Date/Time Result Date/ Time Comments White Blood Count 6.0 K/uL 5.0-10.0 06/06/2016 8:27am 06/06/2016 8: 55am Red Blood Count 3.16 M/uL L 4.60-5.40 06/06/2016 8:27am 06/06/2016 8: 55am Hemoglobin 9.6 g/dL L 14.0-18.0 06/06/2016 8:27am 06/06/2016 8:55am Hematocrit 30.6 % L 40.0-54.0 06/06/2016 8:06/06/2016 8:55am Mean Corpuscular Volume 96.8 fL H 80.0-94.0 06/06/2016 8:2016 8:55am Mean Corpuscular Hemoglobin 30.4 pg 26.0-33.0 06/06/2016 8:2016 8:55am Mean Corpuscular Hemoglobin Concent 31.4 g/dL 31.0-36.0 06/06/2016 8: 06/06/2016 8:55am Red Cell Distribution Width 15.6 % H 11.5-14.5 06/06/2016 8:2016 8:55am RDW Standard Deviation 55.5 fL H 35.1-43.9 06/06/2016 8:06/06/2016 8:55am Platelet Count 199 K/uL 130-400 06/06/2016 8:06/06/2016 8:55am Mean Platelet Volume 10.1 fL 7.0-11.0 06/06/2016 8:06/06/2016 8: 55am Neutrophils (%) (Auto) 65.9 % 42.0-75.0 06/06/2016 8:06/06/2016 8: 55am Lymphocytes (%) (Auto) 17.1 % 16.0-44.0 06/06/2016 8:06/06/2016 8: 55am Monocytes (%) (Auto) 11.6 % H 2.0-9.0 06/06/2016 8:06/06/2016 8: 55am Eosinophils (%) (Auto) 4.4 % 0-7.0 06/06/2016 8:06/06/2016 8:55am Basophils (%) (Auto) 0.2 % 0-1 06/06/2016 8:06/06/2016 8:55am Immature Granulocyte % (Auto) 0.8 % H 0-0.5 06/06/2016 8:2016 8:55am Nucleated Red Blood Cells % 0.0 /100WBC 0-0 06/06/2016 8:2016 8:55am Neutrophils # (Auto) 3.9 K/uL 1.9-8.0 06/06/2016 8:06/06/2016 8: 55am Lymphocytes # (Auto) 1.0 K/uL 0.9-5.2 06/06/2016 8:06/06/2016 8: 55am Monocytes # (Auto) 0.7 K/uL 0.16-1.0 06/06/2016 8:06/06/2016 8: 55am Eosinophils # (Auto) 0.3 K/uL 0-0.8 06/06/2016 8:06/06/2016 8: 55am Basophils # (Auto) 0.0 K/uL 0-0.2 06/06/2016 8:06/06/2016 8:55am Immature Granulocyte # (Auto) 0.05 K/uL 0-0.40 06/06/2016 8:2016 8:55am Nucleated Red Blood Cells # 0.00 K/uL 0.0-0.012 06/06/2016 8:06/06 8:55am Prothrombin Time 11.7 SECONDS 9.0-12.0 06/02/2016 2:33pm 06/02/2016 3: 08pm Prothromb Time International Ratio 1.07 L 2.0-3.0 THERAPEUTIC 2016 2:33pm 06/02/2016 3:08pm Activated Partial Thromboplast Time 31.6 SECONDS 24.0-37.0 06/02/2016 2: 33pm 06/02/2016 3:08pm Random Glucose 396 mg/dL H 65-115 06/06/2016 8:06/06/2016 9:01am Bedside Glucose 267 mg/dL H 70-120 06/06/2016 11:39am 06/06/2016 11: 41am Notify Nurse Blood Urea Nitrogen 44 mg/dL H 8-06/06/2016 8:06/06/2016 9:01am Creatinine 1.78 mg/dL H 0.9-1.6 06/06/2016 8:2706/06/2016 9:01am Glomerular Filtration Rate Calc 38.55 mL/min 06/06/2016 8:2016 9:01am MULTIPLY RESULT BY 1.210 IF THE PATIENT IS -PANAMANIAN Units are mL/min/1.73 m2 > 60 Normal kidney function 30-59 Moderately decreased kidney function 15-29 Severely decreased kidney function <15 End-stage kidney failure BUN/Creatinine Ratio 24.7 06/06/2016 8:06/06/2016 9:01am Sodium Level 136 mEq/L 133-145 06/06/2016 8:06/06/2016 9:01am Potassium Level 4.6 mEq/L 3.5-5.1 06/06/2016 8:06/06/2016 9:01am Chloride Level 97 mEq/L L 98-116 06/06/2016 8:06/06/2016 9:01am Carbon Dioxide Level 31 mEq/L 22-34 06/06/2016 8:06/06/2016 9: 01am Anion Gap 12.6 6-13 06/06/2016 8:06/06/2016 9:01am Calcium Level 8.3 mg/dL 8.2-10.6 06/06/2016 8:06/06/2016 9:01am Total Protein 6.7 gm/dL 6.0-8.4 05/31/2016 2:05/31/2016 2:56pm Albumin 3.6 gm/dL 3.2-5.0 05/31/2016 2:05/31/2016 2:56pm Globulin 3.1 gm/dL H 2.0-3.0 05/31/2016 2:05/31/2016 2:56pm Albumin/Globulin Ratio 1.2 L 1.4-2.4 05/31/2016 2:05/31/2016 2: 56pm Total Bilirubin 0.6 mg/dL 0.1-1.3 05/31/2016 2:05/31/2016 2:56pm Alkaline Phosphatase 111 U/L 35-125 05/31/2016 2:05/31/2016 2: 56pm Aspartate Amino Transf (AST/SGOT) 29 U/L 5-40 05/31/2016 2:2016 2:56pm Alanine Aminotransferase (ALT/SGPT) 21 U/L 5-40 05/31/2016 2:25pm 05/31 2:56pm Procedures Procedure Status Date Provider(s) Laminectomy with spinal fusion Completed 06/02/16 ETHEL JOVEL M.D. Encounters Encounter Location Arrival/Admit Date Discharge/Depart Date Attending Provider Discharged Inpatient [facility] 05/31/16 1:09pm 06/06/16 4 :05pm ETHEL JOVEL M.D.
--- OUTSIDE RECORDS SUMMARY | 2016-06-06 17:12 | XMS REPORT | Continuity of Care Document ---
Author Author [facility] Organization [facility] Address Unknown Phone Unavailable Allergies Active [...] Status Pt. Type Provider Facility Loc./Unit Complaint [id number] 05/19/2012 19:26:00 2012 15:33:00 DIS Inpatient Gerard Shi DO [facility] on [address]
--- OUTSIDE RECORDS SUMMARY | 2016-06-06 17:12 | XMS REPORT | Continuity of Care Document ---
Author Author [facility] Organization [facility] Address Unknown Phone Unavailable Care Team Providers Care Home Coordinator Name Role Phone Marcela Zheng Primary Care Physician [phone] Source Comments Some departments are not documenting in the electronic medical record. If you do not see the information that you expected, contact Release of Information in the Health Information Management department at [phone] for further assistance in locating additional records.[facility] Active Allergies and Adverse Reactions No [...] mg TRANSPLANT+++ elemental Ca)-400 units tablet Fish Oil-Warren-3 Fatty +++HOLD FOR TRANSPLANT+++ 10/28/19 Active Acids (FISH OIL) 15 300-1,000 mg cap Cholecalciferol (Vitamin +++HOLD FOR TRANSPLANT+++ 10/28/19 Active D3) 2,000 unit cap 15 ascorbic acid (VITAMIN C) Take 1 Tab by mouth 90 Tab 3 10/28/19 Active 500 mg tablet daily. +++HOLD FOR 15 TRANSPLANT+++ MV with Take 1 Tab by mouth 10/28/19 Active Ols-Smojjflu-Paedyc daily. +++HOLD FOR 15 0.4-300-250 mg-mcg-mcg TRANSPLANT+++Kroger [...] ISS stage 3 Disease Status at Transplant: MA Cytogenetic/FISH at DIAGNOSIS:46,XY[20], FISH: Gain of chromosome [...]
--- OUTSIDE RECORDS SUMMARY | 2016-06-06 17:12 | XMS REPORT | Continuity of Care Document ---
Author Author [facility] Organization [facility] Address Unknown Phone Unavailable Support Name Relationship Address Phone KAREN ESCOBAR II, MD Caregiver [address] [facility] [address] [place] [address] Unavailable RAHUL BHATIA MD Caregiver [facility] [place] [address] Unavailable JOSE M CONDE Next Of Kin [address] [place] [address] Insurance Providers Guarantor Otis Conde Address [address] [place] [address] Email [email or web address] Payer Auto A Insurance Policy Number [facility]# [id number] Subscriber's Name Otis Conde Relationship 18 Self Payer Bankers [employer] Policy Number [id number] Subscriber's Name SohamOtis Morrison Relationship 18 Self Group Number [id number] Payer Medicare Policy Number [id number] Subscriber's Name Otis Conde Relationship 18 Self Advance Directives Directive Response Recorded Date/Time Advanced Directives Type Living Will DPOA for Healthcare 05/31/16 10:22am Ordered Resuscitation Status Full Code 08/12/13 5:17pm Chief Complaint and Reason for Visit Chief Complaint Back Pain or Injury Reason for Visit [id number] Problems Active Problems Medical Problem Onset Date Status Abnormal findings on esophagogastroduodenoscopy (EGD) 08/13/2013 Acute Dyspnea Unknown Acute Lower extremity edema Unknown Acute Normal colonoscopy 08/13/2013 Acute T12 burst fracture Unknown Acute Thumb laceration Unknown Acute VTE (venous [...] 400 Mg Oral Twice A Day 10/12/15 Atorvastatin Calcium 40 Mg Tablet 40 Mg Oral Daily 30 05/31/16 Cyclobenzaprine Hcl 10 Mg Tablet 10 Mg Oral Three Times A Day Escitalopram Oxalate 20 Mg Tablet 20 Mg Oral Daily 10/12/15 Hydromorphone Hcl (Dilaudid) 2 Mg Tablet 0.5 Tab Oral 3 Times Daily Prn as needed for Pain 10 Tablet 05/14/16 Ibuprofen 200 Mg Tablet 400 Mg Oral Every 4 Hours as needed for Pain 05/14/16 Insulin Glargine,Hum.rec.anlog (Toualyssa Patricio) 300 Unit/1 Ml Insuln.pen 65 Unit Sub-Q Bedtime 10/12/15 Insulin Lispro (Humalog) 100 Unit/1 Ml Insuln.pen 16 Unit Sub-Q Give With Breakfast 10/12/15 Insulin Lispro (Humalog) 100 Unit/1 Ml Insuln.pen 18 Unit Sub-Q Give With Lunch 10/12/15 Insulin Lispro (Humalog) 100 Unit/1 Ml Insuln.pen 30 Unit Sub-Q Give With Supper 10/12/15 Lidocaine Patch 1 Patch Transderm Daily 05/31/16 Metoprolol Tartrate 25 Mg Tablet 25 Mg Oral Twice Daily With Meals 10/12/15 Rivaroxaban (Xarelto) 20 Mg Tablet 20 Mg Oral Daily 10/12/15 Torsemide 20 Mg Tablet 40 Mg Oral Daily 10/12/15 Trazodone Hcl 150 Mg Tablet 150 Mg Oral Bedtime 05/31/16 Past Home Medications Medication Directions Ordered Status Aliskiren/Hydrochlorothiazide (Tekturna Hct 300-25 Mg Tablet) 1 Tab Tablet, 1 Tab Oral Daily 11/24/09 Discontinued Amlodipine Besylate/Benazepril (Lotrel 10/40 Mg Capsule) 1 Cap Capsule, 1 Cap Oral Bedtime 11/10/09 Discontinued Ascorbic Acid (Vitamin C) 1,000 Mg Tablet, 1000 Mg Oral Daily 01/22/08 Discontinued Aspirin (Aspir 81) 81 Mg Tablet.dr, 162.5 Mg Oral Daily 11/24/09 Discontinued Fish Oil/Waverly-3 Fatty Acids (Fish Oil 1,000 Mg Capsule) 1 Cap Capsule, 2 Cap Oral Daily 11/10/09 Discontinued Insuln Asp Prt/Insulin Aspart (Novolog Mix 70/30 Flexpen Syrn) 1 Unit Pen, 20 - 30 Unit Sub-Q Am 11/24/09 Discontinued Multivitamins W-Minerals (Multivitamin) 1 Cap Capsule, 1 Cap Oral Daily 01/21 Discontinued Waverly-3 Fatty Acids (Fish Oil) 500 Mg Capsule, 400 Mg Oral Three Times A Day 01/22/08 Discontinued Tecturna/Hctz , 300 Oral Daily 01/22/08 Discontinued Social History Social History Problem Response Recorded Date/Time Onset Date Status Chewing Tobacco Status No 08/12/2013 12:50pm Not Applicable Not Applicable Hx Substance Use No 05/31/2016 10:30am Not Applicable Not Applicable Hx Alcohol Use No 05/31/2016 10:30am Not Applicable Not Applicable Has the pt used tobacco in the last 12 months No 08/12/2013 12:50pm Not Applicable Not Applicable Query Response Start Date Stop Date Smoking Status Never smoker Hospital Discharge Instructions No hospital discharge instructions. Plan of Care Discharge Date 05/31/16 12:00pm Disposition 02 ACUTE CARE HOSP, OTHER Condition at Discharge Stable Prescriptions See Medication Section Referrals KAREN ESCOBAR II, MD Address: [address] [place] [address] [address] [place], [place] [id number] Functional Status No functional status results. Allergies, Adverse Reactions, Alerts Allergen Type Severity Reaction Status Last Updated No Known Drug Allergies Allergy Unknown Active 05/31/16 Immunizations Query Response on File Recorded Date/Time Hx Influenza Vaccination Y fall 201107/20/14 3:30pm Hx Pneumococcal Vaccination No 07/20/14 3:30pm Hx Tetanus, Diptheria, Pertussis UNKNOWN 07/20/14 3:30pm Hx Influenza Vaccination Y fall 201107/20/14 3:30pm Hx Tetanus, Diptheria, Pertussis UNKNOWN 07/20/14 3:30pm Influenza Vaccine Hx fall 201505/31/16 10:30am Tdap Vaccine Hx 2014 PER PT 04/18/16 11:20am Vital Signs Acute Vital Signs Vital Response Date/Time Temperature (Fahrenheit) 98.5 deg F (96.8 - 99.1) 05/31/2016 10:22am Temperature (Calculated Celsius) 36.42976 degrees C (36.0 - 37.3) 05/31/2016 10:22am Pulse Rate (adult) 72 bpm (60 - 100) 05/31/2016 11:55am Respiratory Rate 16 breaths/min (10 - 20) 05/31/2016 11:55am O2 Sat by Pulse Oximetry 94 % (90 - 100) 05/31/2016 11:55am Oxygen Flow Rate 2.00 L/min 05/31/2016 11:55am Blood Pressure 164/76 mm Hg 05/31/2016 11:55am Height (Feet) 5 feet 05/31/2016 10:22am Height (Inches) 11.00 inches 05/31/2016 10:22am Weight (Kilograms) 147.300 kg 05/31/2016 10:22am Body Mass Index (BMI) 45.0 05/31/2016 10:22am Results Laboratory Results Test Name Result Units Flags Reference Collection Date/Time Result Date/ Time Comments Total Bilirubin 0.80 MG/DL 0.20-1.30 05/14/2016 12:59pm [...] mg/dL H 75-110 05/14/2016 12:39pm 05/14/2016 12:41pm White Blood Count 5.4 T/MM3 4.5-11.0 05/31/2016 11:16am 05/31/2016 11: 28am Red Blood Count 3.86 M/MM3 L 4.50-5.90 05/31/2016 11:16am 05/31/2016 11: 28am Hemoglobin 11.8 GM/DL L 13.5-17.5 05/31/2016 11:05/31/2016 11:28am Hematocrit 37.4 % L 41-53 05/31/2016 11:05/31/2016 11:28am Mean Corpuscular Volume 96.9 UM3 80-100 05/31/2016 11:05/31/2016 11:28am Mean Corpuscular Hemoglobin 30.6 UUG 26-34 05/31/2016 11:2016 11:28am Mean Corpuscular Hemoglobin Concent 31.6 GM/DL 31-37 05/31/2016 11:05/31/2016 11:28am RDW Standard Deviation 51.4 FL H 36.9-50.2 05/31/2016 11:2016 11:28am Platelet Count 134 T/MM3 D 130-400 05/31/2016 11:05/31/2016 11:28am Mean Platelet Volume 9.1 UM3 L 9.4-12.4 05/31/2016 11:05/31/2016 11 :28am Neutrophils (%) (Auto) 63.8 % 33-66 05/31/2016 11:05/31/2016 11: 28am Lymphocytes (%) (Auto) 22.2 % L 23-45 05/31/2016 11:05/31/2016 11: 28am Monocytes (%) (Auto) 11.4 % H 0-9.0 05/31/2016 11:05/31/2016 11: 28am Eosinophils (%) (Auto) 2.2 % 0-4 05/31/2016 11:05/31/2016 11:28am Basophils (%) (Auto) 0.2 % 0-2 05/31/2016 11:05/31/2016 11:28am Immature Granulocyte % (Auto) 0.2 % 0.0-0.5 05/31/2016 11:2016 11:28am Absolute Neutrophils (auto) 3.5 T/MM3 1.8-7.7 05/31/2016 11:2016 11:28am Absolute Lymphocytes (auto) 1.2 T/MM3 1-4.8 05/31/2016 11:2016 11:28am Absolute Monocytes (auto) 0.6 T/MM3 0-0.8 05/31/2016 11:16am 2016 11:28am Absolute Eosinophils (auto) 0.1 T/MM3 0-0.5 05/31/2016 11:162016 11:28am Absolute Basophils (auto) 0.0 T/MM3 0-0.2 05/31/2016 11:162016 11:28am Absolute Immature Granulocyte (auto 0.01 T/MM3 0.00-0.03 05/31/2016 11: 1605/31/2016 11:28am Icterus Index < 2 0-7 05/31/2016 11:1605/31/2016 11:33am Chemistry Specimen Hemolysis < 15 0-25 05/31/2016 11:1605/31/2016 11:33am 0-25: Specimen Exhibited No Hemolysis. Turbidity < 20 0-20 05/31/2016 11:1605/31/2016 11:33am Sodium Level 147 MEQ/L H 134-144 05/31/2016 11:1605/31/2016 11:33am Potassium Level 3.6 MEQ/L 3.6-5 05/31/2016 11:1605/31/2016 11:33am Chloride Level 102 MEQ/L 98-107 05/31/2016 11:1605/31/2016 11:33am Carbon Dioxide Level 34 MEQ/L H 22-30 05/31/2016 11:1605/31/2016 11: 33am Anion Gap 11 MEQ/L 5-15 05/31/2016 11:1605/31/2016 11:33am Blood Urea Nitrogen 48.0 MG/DL H 9-20 05/31/2016 11:1605/31/2016 11: 33am Creatinine 1.8 MG/DL H 0.8-1.5 05/31/2016 11:1605/31/2016 11:33am BUN/Creatinine Ratio 27 RATIO H 6-05/31/2016 11:1605/31/2016 11: 33am Glomerular Filtration Rate Calc 38 05/31/2016 11:16am 05/31/2016 11 :33am Glucose Level 69 MG/DL L 75-110 05/31/2016 11:16am 05/31/2016 11:33am Calculated Osmolality 293 MOSM/KG H 261-280 05/31/2016 11:16am 2016 11:33am Calcium Level 9.1 MG/DL 8.4-10.2 05/31/2016 11:16am 05/31/2016 11:33am Procedures Procedure Status Date Provider(s) Extremity study Completed 03/29/16 Rpr s/n/ax/gen/trnk2.6-7.5cm Completed 04/18/16 EUN OSMAN DO Emergency dept visit Completed 04/18/16 Routine venipuncture Completed 05/14/16 X-ray exam l-s spine 2/3 vws Completed 05/14/16 Comprehen metabolic panel Completed 05/14/16 Reagent strip/blood glucose Completed 05/14/16 Complete cbc w/auto diff wbc Completed 05/14/16 Ther/proph/diag inj sc/im Completed 05/14/16 Ther/proph/diag inj sc/im Completed 05/14/16 Emergency dept visit Completed 05/14/16 [id number]"INJECTION, HYDROMORPHONE, UP TO 4 MG" Completed 05/14/16 [id number]"INJECTION, KETOROLAC TROMETHAMINE, PER 15 MG" Completed 05/14/16 Encounters Encounter Location Arrival/Admit Date Discharge/Depart Date Attending Provider Departed Emergency Room [facility] 05/31/16 10:20am 05/31/16 12: 00pm RAHUL BHATIA MD Registered Clinic [facility] 05/30/16 3:01pm KAREN ESCOBAR II, MD Registered Referred [facility] 05/26/16 10:51am KAREN ESCOBAR II, MD Departed Emergency Room [facility] 05/14/16 10:18am 05/14/16 1: 50pm WEST MAY MD Registered Referred [facility] 05/12/16 10:49am KAREN ESCOBAR II, MD Registered Referred [facility] 05/05/16 10:41am KAREN ESCOBAR II, MD Registered Referred [facility] 04/28/16 10:45am KAREN ESCOBAR II, MD Registered Referred [facility] 04/21/16 10:35am KAREN ESCOBAR II, MD Departed Emergency Room [facility] 04/18/16 11:14am 04/18/16 1: 05pm EUN OSMAN DO Registered Referred [facility] 04/14/16 10:44am ESCOBAR II, KAREN Buck MD Registered Referred [facility] 04/07/16 10:53am ESCOBAR II, KAREN Buck MD Registered Referred [facility] 03/31/16 11:07am ESCOBAR II, KAREN Buck MD Registered Clinic [facility] 03/29/16 3:49pm ESCOBAR II, KAREN Buck MD Registered Referred [facility] 03/24/16 10:53am ESCOBAR II, KAREN Buck MD Registered Referred [facility] 03/17/16 10:17am ESCOBAR II, KAREN Buck MD Registered Referred [facility] 03/10/16 11:03am ESCOBAR II, KAREN Buck MD Registered Referred [facility] 03/03/16 10:36am ESCOBAR II, KAREN Buck MD Recent Diagnosis
--- OUTSIDE RECORDS SUMMARY | 2016-06-06 17:13 | XMS REPORT | Continuity of Care Document ---
Author Author [facility] Organization [facility] Address Unknown Phone Unavailable Support Name Relationship Address Phone AISSATOU RIGGS MD Caregiver [facility] [address] [place] [address] BRITTANY LINDER [address] [phone] KAREN ESCOBAR II, MD Caregiver [address] [place] [address] [address] [place], [place] [phone] JOSE M CONDE Next Of Kin [address] [id number] Insurance Providers Payer Name Policy Number Subscriber Name Relationship Benefit Management Pcn [id number] Jose M Conde Spouse Advance Directives Directive [...] 1,000 Mg PO DAILY 01/22/08 08/21/08 Discontinued [place]-3 Fatty Acids 400 Mg PO THREE TIMES A DAY 01/22/08 08/21/08 Discontinued Aliskiren/Hydrochlorothiazide 1 Tab PO DAILY 11/24/09 05/14/10 Discontinued Torsemide 50 Mg PO DAILY 11/10/09 Active Metoprolol Succinate 50 Mg PO TWICE A DAY 11/24/09 Active Multivitamins 1 Tab PO BEDTIME 11/24/09 Active Ascorbic Acid 1,000 Mg PO DAILY 11/24/09 Active Fish Oil/[place]-3 Fatty Acids 2 Cap PO DAILY 11/10/09 05/14/10 Discontinued Fish Oil/[place]-3 Fatty Acids 1 Cap PO TWICE A [...] F (96.8 - 99.1) Temperature (Calculated Celsius) 36.84354 degrees C (36.0 - 37.3) Temperature Source [...] 08, 2010 10:54pm LAB TEST FORM REQUEST [id number] - Lymphocytes # (Auto) October 23, 2012 [...] Has specimen been collected/obtained? Y Urine Specific [place] May 19, 2012 4:43pm 1.015 - Has [...]
--- OUTSIDE RECORDS SUMMARY | 2016-06-06 17:13 | XMS REPORT ---
Author Author [facility] Kellie, [facility] - Organization Unknown Address Unknown Phone Unavailable Allergies, Adverse Reactions, Alerts * No Latex Allergy. * No IV Contrast Allergy. * No Known Drug Allergies. Problems * Diabetes Mellitus* Status:Active. * Fall Risk* Status:Active. * Mobility Impairment* Status:Active. * Pain* Status:Active. Procedures No Procedures Documented. Medication It is the responsibility of the patient or patient retail representative to confirm the list of medications [...]
[2016-06-06 17:15] VITALS: BP 159/73; PULSE 89; RESP 24; TEMP 98.1; O2SAT 95; Ht 180.3 cm; Wt 139.6 kg
--- NOTE | 2016-06-06 17:15 | NUR ---
Admit A 65 year old male was admitted to room 171 via wheelchair escorted by his . He pivot transfers with assist of 1, FWW, and gait belt; has a TLSO brace in place when OOB. is at bedside. He has a dressing to the lower back which is CDI, hemavac in place to lower back. He has reported pain at a 3/10.
[2016-06-06 17:30] VITALS: PULSE 89; RESP 24
[2016-06-06] MEDS ORDERED: INSU100I14 SQ (18:26)
[2016-06-06] MEDS ORDERED: DIPH50CA4 PO (18:26)
[2016-06-06] MEDS ORDERED: HYDR-3989 PO (18:26)
[2016-06-06] MEDS ORDERED: LORA0.5T86 PO (18:26)
[2016-06-06] MEDS ORDERED: INSU300I SQ (18:26)
[2016-06-06] MEDS ORDERED: ONDA4TAB10 PO (18:26)
[2016-06-06] MEDS ORDERED: milk of magnesia PO (18:26)
[2016-06-06] MEDS ORDERED: LIDO700A3 TD (18:26)
[2016-06-06] MEDS ORDERED: HYDR4TAB84 PO (18:26)
[2016-06-06] MEDS ORDERED: DOCU-168 PO (18:26)
[2016-06-06] MEDS ORDERED: MILK OF MAGNESIA 30 ML SUSP PO PRN (19:00)
[2016-06-06] MEDS ORDERED: PRN ORDERS MC (19:00)
[2016-06-06] MEDS ORDERED: HYDROMORPHONE 2 MG TABLET PO PRN (19:00)
[2016-06-06] MEDS ORDERED: ONDANSETRON ODT 4 MG TAB PO PRN (19:00)
[2016-06-06 19:14] VITALS: BP 184/72; PULSE 91; RESP 24; TEMP 98.2; O2SAT 96
--- NOTE | 2016-06-06 19:39 | NUR ---
Shift Summary Pt is resting in bed at this time. Ambulates with assist of 1, FWW, and gait belt; has a TLSO brace in place. Has reported discomfort at a 3/10 to the back. His is at this bedside. He has not been up to use the restroom this shift. Dressing to the lower back in CDI, aquacel is intact, hemavac in place. Was able to get himself in and out of bed with minimal to no assist. When in bed the bed alarm is in use and call light is within reach.
[2016-06-06] MEDS: INSULIN ASPART 100 UNIT/ML SQ SCH (19:51)
--- NOTE | 2016-06-06 20:15 | NUR ---
Hemovac Pt. requested hemovac be removed. Drain emptied 50ml. Order stated to remove if less than 30ml/8hr; explained to pt. it was not time to remove the drain.
[2016-06-06] MEDS ORDERED: DOCUSATE SODIUM 100 MG CAPSULE PO SCH (21:00)
[2016-06-06] MEDS: LIDOCAINE PATCH REMOVAL TOP SCH (21:00)
--- NOTE | 2016-06-06 21:30 | NUR ---
Shower/Hemovac Pt. requested shower for comfort. Assisted pt. out of bed to standing position and noted hemovac lying on the bed out of the pt. Assisted pt. to shower with walker, gait belt, brace, and assist of one. Dressing on back covered with shower plastic.
[2016-06-06] MEDS ORDERED: INSULIN GLARGINE HUM REC ANLOG 40 UNIT SQ SCH (22:00)
[2016-06-06] MEDS: DOCUSATE SODIUM 100 MG CAPSULE PO SCH (22:42)
[2016-06-06] MEDS: CYCLOBENZAPRINE 10 MG TABLET PO SCH (22:42)
[2016-06-06] MEDS: ACYCLOVIR 200 MG CAPSULE PO SCH (22:44)
[2016-06-06] MEDS: TRAZODONE 100 MG TABLET PO SCH (22:45)
--- NOTE | 2016-06-06 23:00 | NUR ---
Tele-hospitalist/Hemovac After shower, pt. assisted back to bed with one, gait belt, and walker. Hemovac site covered with gauze dressing; no drainage noted. Tele-hospitalist notified. Continue to monitor.
--- NOTE | 2016-06-06 23:49 | NUR ---
Chart Check 24 hour chart check completed
[2016-06-07 04:33] VITALS: BP 170/69; PULSE 96; RESP 16; TEMP 97.8; O2SAT 94
--- NOTE | 2016-06-07 04:35 | NUR ---
Hemovac site dressing Dressing came off; minimal amount of sero-sanguinous drainage on gauze. New gauze placed over the old Hemovac site.
[2016-06-07 05:11] LABS: BASOPHILS % (AUTO) 0.2 % (0-2); EOSINOPHILS # (AUTO) 0.2 T/MM3 (0-0.5); EOSINOPHILS % (AUTO) 3.3 % (0-4); HCT - HEMATOCRIT 29.3 % (41-53); IMMATURE GRANULOCYTE # (AUTO) 0.03 T/MM3 (0.00-0.03); IMMATURE GRANULOCYTE % (AUTO) 0.5 % (0.0-0.5); LYMPHOCYTES # (AUTO) 1.5 T/MM3 (1-4.8); LYMPHOCYTES % (AUTO) 22.7 % (23-45); MEAN CORPUSCULAR HGB 30.1 UUG (26-34); MEAN CORPUSCULAR HGB CONC(MCHC 30.7 GM/DL (31-37); MEAN PLATELET VOLUME 10.1 UM3 (9.4-12.4); MONOCYTES # (AUTO) 0.8 T/MM3 (0-0.8); MONOCYTES % (AUTO) 12.5 % (0-9.0); NEUTROPHILS #(AUTO)-ABSOLUTE 3.9 T/MM3 (1.8-7.7); NEUTROPHILS % (AUTO) 60.8 % (33-66); RED BLOOD COUNT 2.99 M/MM3 (4.50-5.90); WBC - WHITE BLOOD COUNT 6.4 T/MM3 (4.5-11.0)
[2016-06-07 05:12] LABS: ANION GAP 9 MEQ/L (5-15); BUN/CREATININE RATIO 26 RATIO (6-26); CALCIUM 8.2 MG/DL (8.4-10.2); CHLORIDE 99 MEQ/L (98-107); CO2 - CARBON DIOXIDE 30 MEQ/L (22-30); CREATININE 1.7 MG/DL (0.8-1.5); GLOMERULAR FILTRATION RATE 41; GLUCOSE 369 MG/DL (75-110); POTASSIUM 4.2 MEQ/L (3.6-5); SODIUM 138 MEQ/L (134-144)
--- NOTE | 2016-06-07 06:30 | NUR ---
Fasting BGM Fasting BGM 387. Dr. De La Garza, tele-hospitalist notified. Orders received for sliding scale insulin.
[2016-06-07] MEDS: INSULIN ASPART 100 UNIT/ML SQ PRN (07:10)
--- NOTE | 2016-06-07 07:11 | NUR ---
Sliding scale 12 units Novolog given.
[2016-06-07 08:05] VITALS: PULSE 87; RESP 16
[2016-06-07] MEDS: INSULIN ASPART 100 UNIT/ML SQ SCH ×3 (08:29→17:49)
[2016-06-07] MEDS: ACYCLOVIR 200 MG CAPSULE PO SCH ×2 (08:29→21:02)
[2016-06-07] MEDS: DOCUSATE SODIUM 100 MG CAPSULE PO SCH ×2 (08:30→21:02)
[2016-06-07] MEDS: ESCITALOPRAM 20 MG TABLET PO SCH (08:30)
[2016-06-07] MEDS: TORSEMIDE 20 MG TABLET PO SCH (08:30)
[2016-06-07] MEDS: CYCLOBENZAPRINE 10 MG TABLET PO SCH ×3 (08:30→21:02)
[2016-06-07] MEDS: ATORVASTATIN 40 MG TABLET PO SCH (08:30)
[2016-06-07 08:41] VITALS: BP 182/81; PULSE 87; RESP 16; TEMP 98.1; O2SAT 91
[2016-06-07] MEDS: LIDOCAINE 5% PATCH TD SCH (09:44)
--- NOTE | 2016-06-07 10:57 | NUR ---
PAO GRAY SCORE IS 11. Addendum: 06/07/16 at 1057 by JASON MCGHEE Amended: Links added.
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
--- NOTE | 2016-06-07 11:10 | IRU24PDOC ---
24 Hour Post Admission Eval Relevant Changes Relevant Changes: No I have reviewed the patient's information and concur with the finding and results of the pre-admission screen. Certification I certify the patient for rehabilitation. Patient Condition Prior Medical Conditions: (1) Dyspnea Status: Acute Additional Information: medical to manage. encouraging use of Oxygen, but pt somewhat resistant (2) VTE (venous thromboembolism) Status: Acute Additional Information: medical to manage anticoag. (3) Diabetes type I Additional Information: Pt used to determining his own insulin dose based on his own program. Medical is planning to let him run his own dosing. (4) T12 burst fracture Additional Information: PT and OT working with him to increase mobility and stability. Pt cooperative. Current Medical Conditions: (1) Dyspnea Status: Acute Additional Information: medical to manage. encouraging use of Oxygen, but pt somewhat resistant (2) VTE (venous thromboembolism) Status: Acute Additional Information: medical to manage anticoag. (3) Diabetes type I Additional Information: Pt used to determining his own insulin dose based on his own program. Medical is planning to let him run his own dosing. (4) T12 burst fracture Additional Information: PT and OT working with him to increase mobility and stability. Pt cooperative. Prior Functional Condition Lives With: Spouse Residence Type: Private home/apartment Assistive Devices: 4-Wheeled Walker Prior Functional Status: Indep. at home or school Current Functional Status Failed Alternative Therapy Tri: Arrived from acute care Patient Requirements * Patient has been determined to have significant functional limitations requiring at least two therapy disciplines. * Rehabilitation medical practitioner will provide admission approval, assessment and oversight and program coordination at least daily. * Intensive rehabilitative nursing services on site and available 24 hours a day. * The treatment plan will be developed within 24 hours of admission. * Interdisciplinary and goal oriented treatment by professional nursing, social work faculty member, and rehabilitation therapist. * Interdisciplinary team meeting weekly inclusive of ongoing comprehensive discharge planning. First team meeting by day seven. Weekly meetings to follow. * Rehab Physician is the team meeting leader. * Pharmacy and diagnostic services will be available. * Ongoing comprehensive rehab program with at least 2 disciplines and greater than or equal to 3 hours a day, 5 days a week. Physical Therapy Minutes: 90 Occupational Therapy Minutes: 90 Therapy The patient is to receive therapy at least 5 days a week. Current Functional Status: Using assistive device Plan of Care Comment: 6x/week x 1 week, then 5x/week x 2 weeks OT Treatment Plan: ADL's (basic care), Ther. Exercise for ADL's, UE Functional Training, Balance Training, Pt./Family Education OT Treatment Plan Frequency: five times per week OT Treatment Plan Duration: three weeks ROM Deficit: Left Lower Extremity, Right Lower Extremity Muscle Weakness Location: Left Lower Extremity, Right Lower Extremity Complication/Comorbidities Patient Complication Risk: (1) Dyspnea Status: Acute Comments: medical to manage. encouraging use of Oxygen, but pt somewhat resistant (2) VTE (venous thromboembolism) Status: Acute Comments: medical to manage anticoag. (3) Diabetes type I Comments: Pt used to determining his own insulin dose based on his own program. Medical is planning to let him run his own dosing. (4) T12 burst fracture Comments: PT and OT working with him to increase mobility and stability. Pt cooperative. Impact on Functional Outcomes expected to return to preinjury level of function. Barriers to Discharge: weakness, endurance, balance Plan to Avoid Complications Plan to Avoid Complications The patient cannot receive this care in a lesser intensive setting such as Prison or Outpatient Therapy due to the patient requiring the following prev dvt, DM type I, surgical repair of T12 fracture. The patient requires oversight by a rehabilitation physician to manage their rehabilitation treatment plan and the multidisciplinary approach to care that can only be provided in an IRF and requires a multidisciplinary approach to care , provided by professional PTs, OTs, STs, dieticians, RTs, rehabilitation nurses and is not available in lesser levels of care. The frequency and duration for therapy, as recommended by the professional Rehabilitation therapists, meet the patient's initial rehabilitation treatment plan needs and will be further evaluated on a weekly basis for progress and/or changes needed. WEST MAY MD Jun 07, 2016 11:10
--- NOTE | 2016-06-07 11:42 | NUR ---
CM THIS WORKER VISITED PT IN ROOM, INTRODUCED SELF AND ROLE OF CASE MANAGEMENT. PT STATED HE PLANS ON RETURNING HOME AFTER DISCHARGE, FAMILY WILL PICK HIM UP. PT STATED HE HAS GOOD FAMILY SUPPORT NEARBY. PT REPORTED HE HAS A 4WW THAT USES. PT DENIED HOME HEALTH AND ANY OTHER NEEDS. THIS PT WAS GIVEN THIS WORKER'S CONTACT INFORMATION AND ENCOURAGED TO CALL WITH ANY QUESTIONS/NEEDS. Addendum: 06/07/16 at 1146 by JASON MCGHEE Amended: Links added.
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
--- NOTE | 2016-06-07 14:59 | DI ---
INDICATION: ITS.REASON: hypoxia PROCEDURE: CHEST 2-VIEWS UPRIGHT (PA \T\ LAT) Encounter: Initial COMPARISON: October 12, [address] lumbar spine dated May 30, 2016 FINDINGS: There is minimal linear atelectasis in the left base. Small pleural effusions noted on the lateral view, possibly due to recent surgery. There is no pleural effusion or pneumothorax. The heart size, mediastinal contours and pulmonary vascularity are within normal limits. New thoracolumbar spinal fusion hardware. IMPRESSION: Mild left lower lobe atelectasis with small effusions. .
[2016-06-07 16:00] VITALS: BP 161/72; PULSE 82; RESP 20; TEMP 96.8; O2SAT 96
--- NOTE | 2016-06-07 19:43 | NUR ---
SHIFT SUMMARY PT HAS BEEN OUT TO DINING ROOM FOR ALL MEALS. AMBULATES UNSTEADILY WITH FWW AND GAIT BELT. PT TENDS TO SPEED UP WHEN LEGS BEGIN TO SHAKE. PT IS UNSAFE WITH AMBULATION AND TRANSFERS. PT WAS NON-COMPLIANT WITH TSLO BRACE AT TIMES. PT WORE TSLO BRACE DURING THE DAY WHEN UP. BUT AT DINNER PT TOOK IT OFF. PT TOLD NURSE ON THE WAY BACK TO ROOM THAT HE DOESN'T USE THE BRACE, REPORTING "I MOVE BETTER WITHOUT IT." THE NURSE THAT HELPED HIM BACK TO ROOM INFORMED HIM THAT THE BRACE IS TO PROTECT HIS SPINE FROM MOVING IN WAYS THAT IT'S NOT SUPPOSED TO. PT WAS PLACED ON CONTINUOUS OXIMETRY. WHILE PLACING THE WIRE THE PT ASKED WHY HE NEEDED THEM. IT WAS EXPLAINED TO HIM, HE RESPONDED WITH "SETTING ME UP TO BE LEAVING." WAS PRESENT FOR THIS AND TOLD PT "YOU'D RATHER KNOW IF SOMETHING WAS GOING ON." PT AND HIS EXPRESSED CONCERN THAT DR. NARANJO MIGHT WANT TO KNOW WHAT PT'S LABS LOOK LIKE. THIS RN SPOKE WITH SHLOMO ROBBINS LIGHT RAIL SIGNAL TECHNICIAN WHO REPORTED HAVING SPOKEN TO DR. NARANJO AND THAT HE REQUESTED THAT HE BE NOTIFIED WHEN PT IS DISCHARGED BUT DID NOT REQUEST LAB VALUES BE SHARED WITH HIM. MEL MULLER APRN WAS CONSULTED THIS MORNING DUE TO DRAINAGE FROM THE HEMAVAC THAT WAS PULLED LAST NIGHT. THERE WERE ORDERS PUT IN TO JUST COVER SITE WITH A TEFLA AND MONITOR FOR DRAINAGE AND CHANGE PRN. MEL WAS ALSO CONSULTED ABOUT PT'S INSULIN DOSES. NEW ORDERS WERE WRITTEN SO THAT PT CAN DETERMINE DOSE HE SHOULD RECEIVE. PT IS CURRENTLY RESTING IN BED.
[2016-06-07 20:54] VITALS: BP 165/78; PULSE 80; RESP 18; TEMP 98; O2SAT 94
[2016-06-07] MEDS: LIDOCAINE PATCH REMOVAL TOP SCH (21:00)
[2016-06-07] MEDS: TRAZODONE 100 MG TABLET PO SCH (21:04)
--- NOTE | 2016-06-08 00:34 | NUR ---
Chart Check 24 hour chart check completed
[2016-06-08 00:51] VITALS: PULSE 87; RESP 16
--- NOTE | 2016-06-08 05:30 | NUR ---
Summary Pt has refused to use his TLSO brace. Pt has been compliant with GB but requires being reminded to wait for it to be put on before getting up. Pt was in the shower but did not use the call light or wait for help when needing to transfer to the toilet. Pt has been educated to safe ambulating with staff, but becomes hurried at times, and does not respond well to guidance provided by staff, such as "slow down" "wait a moment" or "stop". Pt showered last night. Dressings remained dry. Drain site dressing changed. Pt has expressed frustration at the number of cords on him from oximetry monitoring and NC O2. Pt was on RA with CPAP and spaO2 dropped into the 80's. 2L NC placed with CPAP and spaO2 increased to mid 90's. After BGM of 190 at HS, pt agreed to take 35u of Toujeo but refused other insulin. Pt sleeping at this time, bed alarm on.
[2016-06-08] MEDS: INSULIN ASPART 100 UNIT/ML SQ PRN (06:15)
--- NOTE | 2016-06-08 07:50 | NUR ---
NONCOMPLIANCE PT REFUSED TO WEAR CONTINUOUS O2 MONITOR AND TSLO BRACE FOR NURSING STAFF. DUE TO SAFETY PT WAS HELPED TO DINING ROOM VIA WHEELCHAIR.
[2016-06-08 08:00] VITALS: BP 154/87; PULSE 95; RESP 18; TEMP 98.3; O2SAT 91
[2016-06-08] MEDS: INSULIN ASPART 100 UNIT/ML SQ SCH ×3 (08:35→18:12)
[2016-06-08] MEDS: ESCITALOPRAM 20 MG TABLET PO SCH (08:36)
[2016-06-08] MEDS: CYCLOBENZAPRINE 10 MG TABLET PO SCH ×3 (08:36→22:23)
[2016-06-08] MEDS: DOCUSATE SODIUM 100 MG CAPSULE PO SCH ×2 (08:36→22:21)
[2016-06-08] MEDS: TORSEMIDE 20 MG TABLET PO SCH (08:36)
[2016-06-08] MEDS: ACYCLOVIR 200 MG CAPSULE PO SCH ×2 (08:37→22:21)
[2016-06-08] MEDS: ATORVASTATIN 40 MG TABLET PO SCH (08:37)
[2016-06-08] MEDS: LIDOCAINE 5% PATCH TD SCH (09:00)
[2016-06-08 10:06] VITALS: BP 139/58; PULSE 100; O2SAT 91
[2016-06-08 11:14] VITALS: PULSE 95; RESP 18
--- NOTE | 2016-06-08 14:00 | NUR ---
DR. ESCOBAR'S OFFICE CALLED THIS RN CALLED DR. ESCOBAR'S OFFICE IN REGARD TO MAKING PHYSICIAN AWARE OF PT'S STAY ON THE INPATIENT REHAB UNIT, WELL TO REQUEST VACCINE RECORDS. WAS UNABLE TO SPEAK WITH DR. PABLO NURSE AND LEFT A MESSAGE ASKING TO BE CALLED BACK. Addendum: 06/08/16 at 2028 by LOREN DIA RN DR. PABLO NURSE RETURN CALLED AND REPORTED THAT PT HAD RECEIVED THE PSV23 IN 2010. ASSESSMENT WAS FILLED OUT AND PT WAS OFFERED THE PCV13 AND ACCEPTED.
--- NOTE | 2016-06-08 14:02 | NUR ---
DR. BARAHONA PAGED DR. BARAHONA WAS PAGED IN REGARDS TO CONSULT PLACED FOR T12 BURST FRACTURE. HAVE NOT HEARD BACK FROM DR. BARAHONA YET. Addendum: 06/08/16 at 2028 by LOREN DIA RN DR. BARAHONA CAME BY TO VISIT WITH PT INSTEAD OF RETURNING CALL.
--- NOTE | 2016-06-08 14:55 | CONSPD ---
Consultation Info Date DATE: 06/08/16 TIME: 14:[address] Rhodes Reason for Consultation: Evaluate bone health Ortho HPI HPI Elements HPI In [facility] about 22-3 weeks ago. No injury except to mid back. Subsequently found to have a fracture of T12. Had stabilization by Dr Reynoso. Now in rehab. Has had prior hip fx and tibia fx. Being treated for Multiple Myleoma by Dr Rosado Date of injury 04-28-2016 Review of Systems Constitutional: REPORTS: weakness, DENIES: chills, fever Cardiovascular dyspnea on exertion, DENIES: chest pain Vascular: pedal edema Pulmonary Respiratory: dyspnea, DENIES: cough GI Upper Abdomen: DENIES: nausea, pain, vomiting Lower Abdomen: DENIES: constipation, diarrhea General: DENIES: dysuria Musculoskeletal General: weakness Lumbar: pain Integumentary Skin: see HPI Neurological General: weakness, DENIES: numbness, seizures, syncope Psychiatric Psychiatric: DENIES: depression Hematologic/Lymphatic anemia Allergic/Immunological DENIES: frequent infections All Other Systems Reviewed (remainder of 10-point ROS Neg.) Past Medical History Adult Past Medical History Patient History: (1) Multiple myeloma (2) Diabetes type I Permanent Comment: Dx at age 19 Last Edited By: Neema Ramos on Jun 07, 2016 11:31 (3) VTE (venous thromboembolism) Permanent Comment: LLE in 1998 and RLE (femoral to popliteal veins) in May, Last Edited By: Neema Ramos on Jun 07, 2016 11:36 (4) CKD (chronic kidney disease) stage 3, GFR 30-59 ml/min (5) COLLEEN on CPAP (6) Morbid obesity with BMI of 45.0-49.9, adult Surgical History Patient's Surgical History: T9-L2 decompression with laminectomy and fusion Dr. Hill 05/30 Bilateral cataracts Septoplasty T&A Vasectomy Left hammertoe repair Bilateral carpal tunnel release ORIF left tibia, with subsequent hardware removal Current Medications Acyclovir (Acyclovir) 400 Mg Tablet, 400 MG PO BID, (Reported) Last Taken: Unknown Dose on 06/06/16813 Atorvastatin Calcium (Atorvastatin Calcium) 40 Mg Tablet, 40 MG PO DAILY, (Reported) Last Taken: Unknown Dose on 06/06/16813 Cyclobenzaprine HCl ( Cyclobenzaprine HCl) 10 Mg Tablet, 10 MG PO TID, (Reported) Last Taken: Unknown Dose on 06/06/16 1419 Diphenhydramine HCl ( Diphenhydramine HCl) 50 Mg Capsule, 1 CAP PO [id number], (Reported) Last Taken: Unknown Dose on Unknown Date & Time Docusate Sodium (Colace) 100 Mg Capsule, 1 CAP PO BID, (Reported) Last Taken: Unknown Dose on 06/06/16 0814 Escitalopram Oxalate (Escitalopram Oxalate) 20 Mg Tablet, 20 MG PO DAILY, (Reported) Last Taken: Unknown Dose on 06/06/16 0814 Hydrocodone/Apap ([place] 5-325 Tablet) 5-325 Tablet, 1-2 TAB PO Q4HPRN PRN for PAIN, (Reported) Last Taken: Unknown Dose on Unknown Date & Time Hydromorphone HCl ( Hydromorphone HCl) 4 Mg Tablet, 1 TAB PO Q4HPRN, (Reported) Last Taken: Unknown Dose on 06/02/16 2233 Insulin Glargine,Hum.rec.anlog ( Toujeo Solostar) 300 Unit/1 Ml Insuln.pen, 40 UNIT SQ HS, (Reported) Last Taken: Unknown Dose on 06/05/16 2055 Insulin Lispro (Humalog) 100 Unit/ 1 Ml Insuln.pen, 0 SQ TIDWM, (Reported) Last Taken: Unknown Dose on 06/06/16 1155 Lidocaine (Lidoderm) 1 Each Adh..patch, 1 PATCH TD DAILY, (Reported) Last Taken: Unknown Dose on Unknown Date & Time Lorazepam (Ativan) 0.5 Mg Tablet, 0.5 MG PO Q6HPRN, (Reported) Last Taken: Unknown Dose on 06/04/16 0156 Metoprolol Tartrate (Metoprolol Tartrate) 25 Mg Tablet, 25 MG PO BIDWM, (Reported) Last Taken: Unknown Dose on 06/06/16 0814 Ondansetron (Ondansetron Odt) 4 Mg Tab.rapdis, 4 MG PO Q6HR PRN for NAUSEA &/OR VOMITING, (Reported) Last Taken: Unknown Dose on Unknown Date & Time Torsemide (Torsemide) 20 Mg Tablet, 40 MG PO DAILY, (Reported) Last Taken: Unknown Dose on 06/06/16 0813 Trazodone HCl (Trazodone HCl) 150 Mg Tablet, 150 MG PO HS, (Reported) Last Taken: Unknown Dose on 06/05/162049 [milk of magnesia] , 30 ML PO DAILY PRN for CONSTIPATION, (Reported) Last Taken: Unknown Dose on 06/05/16 0840 Allergies Allergies: Coded Allergies: No Known Drug Allergies (Verified Allergy, Unknown, 05/31/16) Family History Family History: Patient denies significant family history Vaccines FALL 2016 fall PER PT Social History Smoking Status: Never smoker Substance Use Type: does not use Marital Status: Current 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 DPOA for Healthcare Only () Physical Exam Laboratory Laboratory Tests Test 06/07/16 16:59 06/07/16 17:16 06/07/16 21:13 06/08/16 06:04 Glucometer 60mg/dL 95mg/dL 190mg/dL 321mg/dL Test 06/08/16 11:31 Glucometer 92mg/dL Case Report- BMD Demographics Date of Initial Screening: Jun 08, 2016 Age 65 Date of Fracture: May 29, 2016 Gender: Male Race White Height (Feet): 5 Height (Inches): 11.00 Weight (Kilograms): 152.100 Site of Current Fracture Axial: spine (thoracic) Fracture History History of fracture age 50 or: Yes Fracture History: hip, proximal femur Age at time of fractures 60 Risk Factors Medications at time of fractur: cancer therapy drugs History of Rheumatoid Arthriti: No Secondary Osteoporosis d/t con: No Medication Use Nutritional Supplements: calcium, vitamin d Treatment/Counseling Calcium 1200 mg/day (in divide: yes Vitamin D at least 800-1000 IU: yes Regular Weight Bearing and Mus: yes Fall Prevention: yes Smoking Cessation: yes Alcohol Comsumption (no more t: yes Pharmacologic Treatment Recomend Pharmacologic Therapy: No Therapy not recommended due to: bone health assessment ongoing Reason Not Initiating Therapy: tx planned for near future Bone Mineral Density Testing Was BMD Testing Recommended?: Yes BMD Testing: planned/scheduled Written Communication Was pt provided with a letter: Yes Letter Provided to pts PCP?: Yes Discharge Status: routine discharge to home Additional Information Comments Plan for DEXA in the future. Will follow up in several weeks. May need to check with [facility] for management if bone density is low. WEST BARAHONA MD Jun 08, 2016 14:52
[2016-06-08] MEDS ORDERED: PNEUMOCOCCAL VAC. ADMIN. CHARGE INJ ONE (15:00)
[2016-06-08] MEDS ORDERED: PNEUMOCOCCAL 13 VACCINE 0.5 ML SYRINGE IM ONE (15:00)
[2016-06-08 16:18] VITALS: BP 140/67; PULSE 84; RESP 18; TEMP 98.4; O2SAT 97
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
[2016-06-08 19:39] VITALS: BP 151/67; PULSE 79; RESP 20; TEMP 99.1; O2SAT 98
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
--- NOTE | 2016-06-08 20:31 | NUR ---
SHIFT SUMMARY PT CONTINUES TO BE NON-COMPLIANT WITH SAFETY. PT FELL X2 TODAY AT DIFFERENT TIMES. PT CONTINUES TO SELF DOSE INSULIN AT MEAL TIMES. AT BREAKFAST PT REQUESTED AND RECEIVED 20 UNITS OF NOVOLOG, AT LUNCH AND DINNER PT REQUESTED AND RECEIVED 18 UNITS OF NOVOLOG. 1700 BGM WAS 52, PT WAS GIVEN GRAPE JUICE, ON REASSESSMENT BGM WAS 126. PT IS UNSAFE WHEN WALKING.
[2016-06-08] MEDS: LIDOCAINE PATCH REMOVAL TOP SCH (21:00)
[2016-06-08] MEDS: TRAZODONE 100 MG TABLET PO SCH (22:21)
[2016-06-08] MEDS: CALCIUM CITRATE PO SCH (22:25)
[2016-06-08] MEDS: CHOLECALCIFEROL PO SCH (22:25)
[2016-06-09] MEDS ORDERED: FLUTICASONE NASAL SPRAY 50 MCG EA NOSTRIL PRN (00:15)
[2016-06-09 02:19] VITALS: PULSE 87; RESP 16
[2016-06-09] MEDS: INSULIN ASPART 100 UNIT/ML SQ PRN (05:48)
--- NOTE | 2016-06-09 06:47 | NUR ---
Summary Pt assisted with transfers, 2 assist GB, pivot transfer to . Pt states he is hoping to go home today. Pt up early this morning stating he did not sleep well. Pt has denied pain. Pt BS was 255 this morning and pt took the ordered 7u sliding scale NovoLog.
[2016-06-09 08:00] VITALS: PULSE 87; RESP 16
[2016-06-09] MEDS: INSULIN ASPART 100 UNIT/ML SQ SCH ×3 (08:00→17:19)
[2016-06-09] MEDS: CHOLECALCIFEROL PO SCH ×2 (08:00→22:17)
[2016-06-09] MEDS: CYCLOBENZAPRINE 10 MG TABLET PO SCH ×3 (08:00→22:18)
[2016-06-09] MEDS: DOCUSATE SODIUM 100 MG CAPSULE PO SCH ×2 (08:00→22:17)
[2016-06-09] MEDS: CALCIUM CITRATE PO SCH ×2 (08:00→22:17)
--- NOTE | 2016-06-09 08:00 | NUR ---
RECEIVED REPORT PATIENT IS ALERT AND ORIENTED. DENIES PAIN OR ANY OTHER CONCERNS. VERBALIZES MINIMAL DISCOMFORT TO LOWER BACK, INCISIONAL AREA. RA. VSS. NOT PROBLEMS NOTED.
[2016-06-09] MEDS: TORSEMIDE 20 MG TABLET PO SCH (08:01)
[2016-06-09] MEDS: ESCITALOPRAM 20 MG TABLET PO SCH (08:01)
[2016-06-09] MEDS: ATORVASTATIN 40 MG TABLET PO SCH (08:01)
[2016-06-09] MEDS: LIDOCAINE 5% PATCH TD SCH (08:02)
[2016-06-09] MEDS: LIDOCAINE PATCH REMOVAL TOP SCH (08:02)
[2016-06-09] MEDS: ACYCLOVIR 200 MG CAPSULE PO SCH ×2 (08:14→22:17)
[2016-06-09 08:36] VITALS: BP 155/72; PULSE 86; RESP 18; TEMP 98.3; O2SAT 96
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
--- NOTE | 2016-06-09 14:53 | NUR ---
PAO THIS WORKER REVIEWED IRU CARE PLAN WITH PT, PT AGREED AND SIGNED/
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
[2016-06-09 16:58] VITALS: BP 165/71; PULSE 80; RESP 22; TEMP 98.2; O2SAT 94
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
--- NOTE | 2016-06-09 19:16 | PDIRUOPC ---
Overall Plan of Care Date DATE: 06/09/16 TIME: 19:13 Relevant Changes Relevant Changes: No I have reviewed the patient's information and concur with the finding and results of the pre-admission screen. Certification I certify the patient for rehabilitation. Patient Impairments Prior Medical Conditions: (1) Dyspnea Status: Acute Additional Information: Patient declines oxygen. (2) VTE (venous thromboembolism) Status: Chronic Additional Information: Medical to manage (3) Diabetes type I Status: Chronic Additional Information: Medical using patient's home sliding scale. (4) T12 burst fracture Additional Information: Patient is still quite unstable in ambulation. Worked with him this morning along with medical and he and his ultimately agreed that he would stay at least another day. Frankly we need several more days with him and much safety training. However staff will do the best the can with a timely get. PT and OT will work with him today. Trim bandage on back. Current Medical Conditions: (1) Dyspnea Status: Acute Additional Information: Patient declines oxygen. (2) VTE (venous thromboembolism) Status: Chronic Additional Information: Medical to manage (3) Diabetes type I Status: Chronic Additional Information: Medical using patient's home sliding scale. (4) T12 burst fracture Additional Information: Patient is still quite unstable in ambulation. Worked with him this morning along with medical and he and his ultimately agreed that he would stay at least another day. Frankly we need several more days with him and much safety training. However staff will do the best the can with a timely get. PT and OT will work with him today. Trim bandage on back. Medical Prognosis Fair IRF Tx That Should Address Dx: (1) Myopathy (2) T12 burst fracture Dx Requiring Medical FU: (1) Multiple myeloma (2) Morbid obesity with BMI of 45.0-49.9, adult (3) CKD (chronic kidney disease) stage 3, GFR 30-59 ml/min (4) Diabetes type I Vital Signs Vital Signs Date Time Temp Pulse Resp B/P Pulse Ox O2 Delivery O2 Flow Rate FiO2 06/09/16 16:58 98.2 80 22 165/71 94 Room Air Laboratory Laboratory Tests Test 06/07/16 21:13 06/08/16 06:04 06/08/16 11:31 06/08/16 16:54 Glucometer 190mg/dL 321mg/dL 92mg/dL 52mg/dL Test 06/08/16 17:40 06/09/16 11:23 06/09/16 11:42 06/09/16 12:00 Glucometer 126mg/dL 62mg/dL 50mg/dL 69mg/dL Test 06/09/16 17:13 Glucometer 146mg/dL Anticipated Interventions The patient requires inpatient IRF care for PT, OT, and/or ST for residuals remaining from [] resulting in muscular weakness and strength deficits. ROM Deficit: Left Lower Extremity, Right Lower Extremity Strength Deficits: Left Lower Extremity, Right Lower Extremity FIM Scores Ambulation Distance: 117 Ambulation Ability: 2 Maximum Assistance Ambulation Assistance Needed: 1 Person Walk FIM Score Reason: Not safe to demo at this time due to non-compliance with TLSO. Wheelchair Propulsion Ability: 0 Activity Does Not Occur Wheelchair FIM Score Reason: Pt declines to demo. Stairs: 0 Activity Does Not Occur Stair Assistance Needed: 1 Person Number of Stairs: 4 Reason for Stair FIM: Not performed for pt. safety. Eating Ability-FIM: 6 Modified Mellette Grooming Ability: 5 Supervision/Setup Bathing Ability: 5 Supervision/Setup Upper Body Dressing Ability: 5 Supervision/Setup Lower Body Dressing Ability: 5 Supervision/Setup Toileting Ability: 1 Total Assistance Toileting FIM Score Reason: supervision with gwen hygiene. Bed Transfer Ability: 2 Maximum Assistance Bed Transfer Assistance Needed: 2 Persons Bed FIM Score Reason: steadying for gait Chair Transfer Ability: 2 Maximum Assistance Chair Transfer Assistance Need: 1 Person Chair FIM Score Reason: Not safe to demo at this time due to non-compliance with TLSO. Overall Wheelchair Transfer Ab: 2 Maximum Assistance Overall Toilet / Commode Trans: 2 Maximum Assistance Toilet / Commode Transfer Assi: 1 Person Tub / Shower Transfer Ability: 4 Minimal Assistance Comprehension Ability: 5 Supervision/Setup Social Interaction: 5 Supervision/Setup Problem Solvin Minimal Assistance Expression Ability: 5 Supervision/Setup Memory: 4 Minimal Assistance Swallowin Activity Does Not Occur Current Functional Status Failed Alternative Therapy: Arrived from acute care Patient Requires * Patient has been determined to have significant functional limitations requiring at least two therapy disciplines. * Rehabilitation medical practitioner will provide admission approval, assessment and oversight and program coordination at least daily. * Intensive rehabilitative nursing services on site and available 24 hours a day. * The treatment plan will be developed within 24 hours of admission. * Interdisciplinary and goal oriented treatment by professional nursing, social services aide, and rehabilitation therapist. * Interdisciplinary team meeting weekly inclusive of ongoing comprehensive discharge planning. First team meeting by day seven. Weekly meetings to follow. * Rehab Physician is the team meeting leader. * Pharmacy and diagnostic services will be available. * Ongoing comprehensive rehab program with at least 2 disciplines and greater than or equal to 3 hours a day, 5 days a week. Physical Therapy Minutes: 90 Occupational Therapy Minutes: 90 Therapy The patient is to receive therapy at least 5 days a week. PT Treatment Plan: Therapeutic Exercise, Gait Training, Functional Activities , Patient/Family Education Treatment Plan Frequency: five times per week Treatment Plan Duration: two weeks Plan of Care Comment: 6x/week x 1 week, then 5x/week x 2 weeks OT Treatment Plan: ADL's (basic care), Ther. Exercise for ADL's, UE Functional Training, Balance Training, Pt./Family Education OT Treatment Plan Frequency: five times per week OT Treatment Plan Duration: three weeks ST Treatment Plan: Evaluation Only ST Treatment Plan Frequency: N/A Treatment Plan Duration: N/A Anticapted LOS/Outcomes Anticipated Functional Outcome improvement to pre injury status Anticipated DC Destination: Home Health Service Home Safety Plan The patient will be provided with the development of a Home Safety Plan for return to a home or home-like environment and to ensure safety post discharge. Complicating Conditions Complications since IRF admit: (1) Dyspnea Status: Acute Comments: Patient declines oxygen. (2) VTE (venous thromboembolism) Status: Chronic Comments: Medical to manage (3) Diabetes type I Status: Chronic Comments: Medical using patient's home sliding scale. (4) T12 burst fracture Comments: Patient is still quite unstable in ambulation. Worked with him this morning along with medical and he and his ultimately agreed that he would stay at least another day. Frankly we need several more days with him and much safety training. However staff will do the best the can with a timely get. PT and OT will work with him today. Trim bandage on back. Other Contributing Factors: Plan to Avoid Complications Barriers to Attaining Goals: weakness, balance, endurance, pain control Plan to Avoid Complications The patient cannot receive this care in a lesser intensive setting such as [facility] or Outpatient Therapy due to the patient requiring the following DM type I with uncontrolled sugars, Dyspnea The patient requires oversight by a rehabilitation physician to manage their rehabilitation treatment plan and the multidisciplinary approach to care that can only be provided in an IRF and requires a multidisciplinary approach to care , provided by professional PTs, OTs, STs, dieticians, RTs, rehabilitation nurses and is not available in lesser levels of care. The frequency and duration for therapy, as recommended by the professional Rehabilitation therapists, meet the patient's initial rehabilitation treatment plan needs and will be further evaluated on a weekly basis for progress and/or changes needed. Problem Qualifiers (1) T12 burst fracture: Encounter type: subsequent encounter WE[facility] MAY MD Jun 09, 2016 19:15
[2016-06-09 20:07] VITALS: BP 146/75; PULSE 76; RESP 12; TEMP 98; O2SAT 97
[2016-06-09] MEDS: TRAZODONE 100 MG TABLET PO SCH (22:18)
[2016-06-09] MEDS: ZOLPIDEM 10 MG TABLET PO SCH (22:18)
--- NOTE | 2016-06-10 02:48 | NUR ---
HS INSULIN Patient titrated his own Toujeo dose to 28 u at HS. Med bar code does not scan.
--- NOTE | 2016-06-10 05:57 | NUR ---
SHIFT SUMMARY Otis has been quite grumpy tonight. He did not sleep at all despite receiving 10 mg Ambien at . He called frequently to report that he still wasn't asleep. Requested blankets be tucked a certain way, tray be positioned a certain way. Was encouraged to do as much as possible for himself. He struggles to get upright in the bed, but using rails and rocking motion, can sit up indep. He set off his bed alarm numerous times during noc. Insistent that it be left off, his request was not granted due to safety concerns with his impulsivity and recent numerous falls. He seemed confused at times, forgetting that he had requested certain things. Argumentative at times. He requested and received a snack of sandwich and chips and diet pop during noc. Self-adjusts his ordered insulin. He seems to struggle with word finding at times, and then is frustrated that staff doesn't understand what he wants. Seems to use his lashing out at staff to cover his own deficits both cognitively and physically. Had several LOB during shift. He wants to transfer himself independently, but is not steady enough to do so. He attempted to transfer from his recliner to his bed and insisted that the brakes be off. Staff did not accomodate this request. he attempted to make the transfer causing his recliner to roll. Staff locked brakes and did not allow this. He is currently sitting in his recliner shaving and has asked for things and then immediately changed his mind (shower last noc, go to dining room at 6am). Has announced that he plans to leave Monday whether the dr says he can or not. he plans to visit with Dr. Rhodes about this during the day today. He currently seems to have forgotten this plan though.
--- NOTE | 2016-06-10 07:44 | NUR ---
LIDODERM PATCH REMOVAL Patch was removed at HS from patient's back. EMAR showed that admin was already documented on by previous nurse.
[2016-06-10 08:00] VITALS: BP 160/71; PULSE 95; RESP 20; TEMP 97.7; O2SAT 93
[2016-06-10] MEDS: INSULIN ASPART 100 UNIT/ML SQ SCH ×3 (08:40→17:52)
[2016-06-10] MEDS: CALCIUM CITRATE PO SCH ×2 (08:45→21:00)
[2016-06-10] MEDS: DOCUSATE SODIUM 100 MG CAPSULE PO SCH ×2 (08:45→21:00)
[2016-06-10] MEDS: CHOLECALCIFEROL PO SCH ×2 (08:45→21:00)
[2016-06-10] MEDS: ESCITALOPRAM 20 MG TABLET PO SCH (08:46)
[2016-06-10] MEDS: ATORVASTATIN 40 MG TABLET PO SCH (08:46)
[2016-06-10] MEDS: CYCLOBENZAPRINE 10 MG TABLET PO SCH ×3 (08:46→21:00)
[2016-06-10] MEDS: TORSEMIDE 20 MG TABLET PO SCH (08:46)
[2016-06-10] MEDS: ACYCLOVIR 200 MG CAPSULE PO SCH ×2 (08:47→21:00)
[2016-06-10] MEDS: LIDOCAINE 5% PATCH TD SCH (08:47)
--- NOTE | 2016-06-10 11:39 | PNPDOC ---
MEL MULLER [employer]EN [employer] BU[employer] 06/10/16 1135: Subjective Date DATE: 06/10/16 TIME: 11:30 Subjective Ray has been argumentative all day. He didn't sleep last night, even though he received Ambien 10 mg. At home he takes 12.5 mg +9 mg and melatonin plus an antihistamine sleep aid. He continues to be impulsive, and has poor safety awareness, poor body awareness. He has nearly fallen a number of times. I watched him stand from the wheelchair using his walker, and later again as he was working with physical therapy in the gym - both times he was arguing with the therapist about how to do things. He was however, wearing his TLSO brace. His reports that he has been confused. For example, he forgot the dates of his children. Last night he was confused as well. I mention these concerns to the patient, and he retorted that we are all confused, not him. He insists on leaving tomorrow afternoon. He plans on calling a friend to take him home. He denies any difficulty breathing or cough, no abdominal pain or nausea, he denies any dysuria. Objective Vital Signs Vital signs Vital Signs Date Time Temp Pulse Resp B/P Pulse Ox O2 Delivery O2 Flow Rate FiO2 06/10/16 08:00 97.7 95 20 160/71 93 Room Air Telemetry Rhythm: Sinus Rhythm Height (Feet): 5 Height (Inches): 11.00 Weight (Kilograms): 152.100 General General Appearance: Alert, Obese, Well Nourished, Well Developed, No Acute Distress Eyes (Brief) Eyes: FOUND: PERRL ENMT (Brief) ENMT: FOUND: mucosa moist, NOT FOUND: pharnyx erythema Respiratory (Brief) Respiratory: FOUND: clear all noel, equal bilaterally Cardiovascular (Brief) Cardiac: FOUND: regular rate, regular rhythm Abdomen (Brief) Abdominal: FOUND: BS normo active x4, soft, NOT FOUND: distended, tender Extremities (Brief) Extremity : Side: Bilateral Extremity: leg Extremity Finding: FOUND: edema (1+) Musculoskeletal (Brief) Musculoskeletal: NOT FOUND: deformity, tenderness Integumentary (Brief) Integumentary: FOUND: dry, warm, NOT FOUND: pink (pallor; jaundice) Comments dressing intact to back - there is no sign of erythema extending beyond the dressing. There is no drainage from the Hemovac site. There is no dressing over the abrasion to his left knee. There is no sign of infection. Psychiatric (Brief) Psychiatric: FOUND: alert, oriented, NOT FOUND: normal affect Assessment & Plan Problems: (1) Acute encephalopathy Status: Acute (2) Hypoxia Status: Acute Assessment & Plan: Sats decreased to 83% on room air with PT (3) T12 burst fracture Qualifiers: Encounter type: subsequent encounter Assessment & Plan: T9-L2 decompression with laminectomy and fusion, and a Hemovac was placed. Dr. Hill recommended to discontinue if it drained less than 30 mL's in 8 hours. This was accidentally discontinued on 06/07/16 around 0430, and Dr. Hill recommended to monitor for infection and to replace dressing as needed. F/U with Dr. Hill on 06/14/16 at 1430 (4) Lower extremity edema Status: Acute (5) VTE (venous thromboembolism) Status: Chronic Assessment & Plan: on Xarelto (6) Multiple myeloma Status: Chronic Assessment & Plan: Sees Dr. Chung (7) Diabetes type I Status: Chronic Assessment & Plan: Dx age 19 (8) CKD (chronic kidney disease) stage 3, GFR 30-59 ml/min Status: Chronic Assessment & Plan: sees Dr. Erwin (9) COLLEEN on CPAP Status: Chronic (10) Morbid obesity with BMI of 45.0-49.9, adult Status: Chronic (11) Abrasion of left knee Status: Acute Assessment & Plan: Status post fall on 06/08/16 Plan/Intensity of Service Acute encephalopathy: We checked his blood sugar, which was 245. He looks slightly pale and jaundiced. We'll check a CBC, CMP, ammonia, lactate program. Also, tone, and. Will assess vitamin B12, folate, TSH, and pre-albumin because of his acute encephalopathy. We'll also check a urinalysis. He has been afebrile and doesn't have any sustained SIRS criteria. Lactate came back elevated at 2.1, though he had a normal WBC without bandemia; normal procalcitonin; normal LFTs and normal ammonia; kidney function at baseline. UA - no UTI. ABG shows pH of 7.46, CO2 51, PO2 65, bicarb 36. Discussed with Dr. Camilo. Very low suspicion for infectious etiology. Elevated lactate most likely attributed to mixed respiratory acid-base imbalance ; possibly compensated respiratory acidosis. Code Status Full Code Hospital Course Summary Disclaimer The hospital course summary below is not to be considered part of the above Progress Note. Hospital Course Summary 06/07/16 Agree with admission to IRU. Dr. Rhodes spoke with Dr. Hill about the accidental discontinuation of the Hemovac drain. He recommends to simply watch it for infection and reapply dressing as needed. Hypoxia - sats decreased to 83% on room air while working with PT. Will obtain CXR (CXR from [facility] showed cardiomegaly). Start monitoring continuous pulse oximetry and apply oxygen as needed to maintain sats >90%. May need diuresis - pt reports an increase in B/L lower extremity edema since the accident. He is on torsemide 40 mg daily. Creatinine on admission was 1.7 - baseline. DM type 1 - sees an lead tank mechanic in [place]. Monitor glucose; pt approved to manage his own insulin dosing schedule. Normocytic anemia - chronic. Hgb 9.0 on IRU admission. Multiple myeloma - weekly chemo; managed by Dr. Chung. Consult Dr. Geronimo for metabolic bone workup. Hx DVT - continue Xarelto. 06/08/16 Generally doing well, patient reports discharge anticipated tomorrow. Superficial skin abrasion left knee with skin tag-optimally skin tag should be removed which will attempt to do in the morning. Mild hypoglycemia earlier in the day on chart review. 06/09/16 Hypoglycemia: Would recommend to reduce his mealtime dosing. He is asymptomatic with hypoglycemia. Necrotic skin trimmed off of abrasion borders and dressing applied by nursing. Back dressing trimmed where it was peeling off, and the bottom was reinforced. Recommended to patient that he should stay in IRU and to delay discharge home. Cognitive evaluation ordered. 06/10/16 Acute encephalopathy: We checked his blood sugar, which was 245. He looks slightly pale and jaundiced. We'll check a CBC, CMP, ammonia, lactate program. Also, tone, and. Will assess vitamin B12, folate, TSH, and pre-albumin because of his acute encephalopathy. We'll also check a urinalysis. He has been afebrile and doesn't have any sustained SIRS criteria. ERIBERTO CAMILO MD 06/10/162105: Assessment & Plan Assessment I have independently evaluated and examined this patient. I reviewed the chart, the patient's history, and the WOODEN FR[employer] BU[employer]DER's documented findings as above. We discussed and formulated the assessment and plan as above with additions as below: Mr. Rousseau was napping prior to my arrival and reports that he thought it was 8 :00 in the morning rather than 8:00 in the evening. He was able to actually, that he was a [facility] and that was May but advised that it was 1916 and then laughed but did not correct the year. He reports he has not been sleeping well and that Dr. Torrez gives a medication to help as noted above. Nursing reports the patient has been refusing CPAP consistently since transferred to IRU. Patient attributes confusion today to blood sugars in the 50s-last recorded hypoglycemia was yesterday morning. Mental status as above, patient is mildly confused and fumbled with his CPAP mask while we visited but was unable to put it on. Breath sounds are diminished throughout but there are no abnormal sounds. Abdomen is benign. Patient was agreeable to using CPAP, nursing will assist with placement of equipment or call respiratory therapy. I advised the patient that hypercarbia was noted on blood gas earlier today and and that it will worsen without resumption of CPAP at night and with napping. Sedatives and narcotics need to be minimized and Ambien should certainly only be used in conjunction with CPAP. Sleep disruption may be playing a role in current encephalopathy. MEL MULLER APRN Jun 10, 2016 11:35 ERIBERTO CAMILO MD Jun 10, 2016 21:06
[2016-06-10 11:53] LABS: BASOPHILS % (AUTO) 0.3 % (0-2); EOSINOPHILS # (AUTO) 0.1 T/MM3 (0-0.5); EOSINOPHILS % (AUTO) 1.5 % (0-4); HCT - HEMATOCRIT 29.7 % (41-53); HGB - HEMOGLOBIN 9.3 GM/DL (13.5-17.5); IMMATURE GRANULOCYTE # (AUTO) 0.03 T/MM3 (0.00-0.03); IMMATURE GRANULOCYTE % (AUTO) 0.4 % (0.0-0.5); LYMPHOCYTES # (AUTO) 1.1 T/MM3 (1-4.8); LYMPHOCYTES % (AUTO) 14.4 % (23-45); MEAN CORPUSCULAR HGB 30.4 UUG (26-34); MEAN CORPUSCULAR HGB CONC(MCHC 31.3 GM/DL (31-37); MEAN CORPUSCULAR VOLUME 97.1 UM3 (80-100); MEAN PLATELET VOLUME 9.2 UM3 (9.4-12.4); MONOCYTES # (AUTO) 0.8 T/MM3 (0-0.8); MONOCYTES % (AUTO) 10.6 % (0-9.0); NEUTROPHILS #(AUTO)-ABSOLUTE 5.7 T/MM3 (1.8-7.7); NEUTROPHILS % (AUTO) 72.8 % (33-66); RED BLOOD COUNT 3.06 M/MM3 (4.50-5.90); WBC - WHITE BLOOD COUNT 7.9 T/MM3 (4.5-11.0)
[2016-06-10 12:04] LABS: ALBUMIN/GLOBULIN RATIO 1.1 RATIO (1.1-2.2); ALKALINE PHOSPHATASE 116 U/L (38-126); ALT (SGPT) 26 U/L (21-72); ANION GAP 11 MEQ/L (5-15); AST (SGOT) 26 U/L (17-59); BUN/CREATININE RATIO 19 RATIO (6-26); CALCIUM 8.9 MG/DL (8.4-10.2); CHLORIDE 98 MEQ/L (98-107); CO2 - CARBON DIOXIDE 31 MEQ/L (22-30); CREATININE 1.8 MG/DL (0.8-1.5); GLOMERULAR FILTRATION RATE 38; GLUCOSE 233 MG/DL (75-110); SODIUM 140 MEQ/L (134-144); TOTAL PROTEIN 5.7 G/DL (6.3-8.2)
[2016-06-10 12:05] LABS: AMMONIA < 9 UMOL/L (9-33); LACTATE - LACTIC ACID 2.1 MMOL/L (0.6-2.2)
[2016-06-10 12:11] LABS: PREALBUMIN 8.5 MG/DL (17.6-36.0)
[2016-06-10 13:52] LABS: BLOOD, URINE TRACE-LYSED (NEGATIVE); COLOR,URINE YELLOW (YELLOW); LEUKOCYTE ESTERASE ,URINE NEGATIVE (NEGATIVE); NITRITE,URINE NEGATIVE (NEGATIVE); UROBILINOGEN,URINE 0.2 EU/DL (NORMAL)
--- NOTE | 2016-06-10 14:02 | NUR ---
Mrs. Rousseau visits and request that patient not be discharged at this time. She states she does not feel she will be able to care for patient in his current state and is not able to manage his functional status. Mr. Rousseau has advised multiple staff members that he is leaving today. Patient has demonstrated cognitive decline today and she reports he has been hallucinating. Medical providers have been notified of change in status and additional evaluations have been initiated. Advised Mrs. Rousseau that she will be involved in discharge plan.
[2016-06-10 14:05] LABS: BACTERIA,URINE TRACE (NEGATIVE); RBC,URINE NONE SEEN /HPF (0-3); SQUAMOUS EPITHELIAL CELL,UR NONE SEEN; WBC,URINE NONE SEEN /HPF (0-5)
--- NOTE | 2016-06-10 14:20 | NUR ---
CM STAFF RELAYED THAT PT'S REQUESTED TO SPEAK WITH THIS WORKER. NOT ONSITE, THIS WORKER LEFT MESSAGE WITH , AND PROVIDED CONTACT INFO AGAIN.
[2016-06-10 16:00] VITALS: BP 149/62; PULSE 92; RESP 18; TEMP 97.6
--- NOTE | 2016-06-10 20:42 | NUR ---
Shift summary Patient alert to himself this shift. Intermittently unsure of date or place. reports hes
--- NOTE | 2016-06-10 20:44 | NUR ---
Shift summary Patient alert to himself and intermittently confused as to date and place. Patient refuses to wear back brace and refuses to call for assist for transfers. Educated patient multiple times of need for assist for all transfers due to his unsteadiness and high risk for falls and recent falls. Patient states he does not need our help and states he does not need to "follow the rules". He is argumentative at times. states he has been "seeing things that aren't there." She states this is "not my " Physician notified of increase in confusion. Labs obtained, UA obtained. Patient insistent on going home. states she is unsure she can care for all his needs at this time and would like him to stay to become stronger. Patient is continent of bowel and bladder. Uses 4 wheel walker with 2 assist to ambulate short distance. Patient reminded to lock brakes on walker, but he refuses and states he doesn't need to lock brakes and knows what he is doing. Denies pain this shift.
[2016-06-10] MEDS: LIDOCAINE PATCH REMOVAL TOP SCH (21:00)
--- NOTE | 2016-06-10 21:15 | NUR ---
CALL Patient's called to offer to come sit with him during the night tonight. Explained that she is welcome to come, but that patient is asleep and wearing CPAP. Reassured her that staff would remain with him as much as needed to keep him safe. She opted to not come up. Encouraged her to call the desk at anytime if she wanted to check in on his status.
--- NOTE | 2016-06-10 21:55 | NUR ---
MED HOLD Patient is wearing his CPAP and has fallen asleep. BGM checked and is 177. N.O. to HOLD giving HS meds and insulin to allow patient to sleep. He has not slept the past 48 hours.
[2016-06-10] MEDS: ZOLPIDEM 10 MG TABLET PO SCH (22:00)
[2016-06-10] MEDS: TRAZODONE 100 MG TABLET PO SCH (22:00)
[2016-06-10 23:33] VITALS: BP 144/69; PULSE 86; RESP 18; TEMP 98.2; O2SAT 91
--- NOTE | 2016-06-11 01:03 | NUR ---
STATUS Patient is asleep in bed with CPAP in place and working effectively. Will continue to monitor patient.
--- NOTE | 2016-06-11 02:56 | NUR ---
STATUS Patient continues to sleep soundly with CPAP on. Continuing to monitor.
--- NOTE | 2016-06-11 04:24 | NUR ---
CHART CHECK 24hr chart check completed.
--- NOTE | 2016-06-11 04:58 | NUR ---
STATUS Patient continues to sleep soundly with CPAP on. He has repositioned himself several times.
--- NOTE | 2016-06-11 06:47 | NUR ---
SHIFT SUMMARY Patient was assisted up with 2 to ambulate to bathroom. Has been continent all noc. Slept all noc with CPAP. After BGM check, he reapplied his CPAP and went back to sleep. He was grumpy but cooperative. Did call before getting up off toilet so staff could accompany him.
[2016-06-11 08:00] VITALS: BP 178/71; PULSE 93; RESP 24; TEMP 98.1; O2SAT 94
[2016-06-11] MEDS: ACYCLOVIR 200 MG CAPSULE PO SCH ×2 (08:57→19:53)
[2016-06-11] MEDS: ATORVASTATIN 40 MG TABLET PO SCH (08:57)
[2016-06-11] MEDS: INSULIN ASPART 100 UNIT/ML SQ SCH ×3 (08:57→17:58)
[2016-06-11] MEDS: ESCITALOPRAM 20 MG TABLET PO SCH (08:58)
[2016-06-11] MEDS: CYCLOBENZAPRINE 10 MG TABLET PO SCH ×3 (08:58→19:53)
[2016-06-11] MEDS: TORSEMIDE 20 MG TABLET PO SCH (08:58)
[2016-06-11] MEDS: CHOLECALCIFEROL PO SCH ×2 (08:58→19:53)
[2016-06-11] MEDS: DOCUSATE SODIUM 100 MG CAPSULE PO SCH ×2 (08:58→19:54)
[2016-06-11] MEDS: CALCIUM CITRATE PO SCH ×2 (08:58→19:53)
[2016-06-11 10:00] VITALS: RESP 18
[2016-06-11] MEDS: LIDOCAINE 5% PATCH TD SCH (10:53)
[2016-06-11] MEDS: INSULIN ASPART 100 UNIT/ML SQ PRN (12:07)
[2016-06-11 16:21] VITALS: BP 144/64; PULSE 80; RESP 20; TEMP 97.3; O2SAT 95
--- NOTE | 2016-06-11 17:59 | NUR ---
Dinner Insulin Pt expresses understanding of low blood sugars as charted, states "I usually take 30 units at supper so I'll do 28 units instead. I won't go lower than that." Will continue to monitor.
--- NOTE | 2016-06-11 18:24 | NUR ---
Shift Summary Pt alert and oriented to person and place, occasionally time. Pt slightly suspicious and guarded this morning, however has been very pleasant and cooperative throughout the afternoon. Pt has worn back brace as instructed, questions the need for the brace at times but expresses understanding after education provided. Pt on RA, denies SOA. Pt rates back pain 1/10, denies need for pain medication at this time. Pt up with assist x2, gait belt, walker. Adequate urine output, continent of urine and bowel. Dressing to right groin C/D/I. Dressing to back also C/D/I, no redness noted. Pt able to make needs known.
[2016-06-11] MEDS: ZOLPIDEM 10 MG TABLET PO SCH (19:53)
[2016-06-11] MEDS: TRAZODONE 100 MG TABLET PO SCH (19:53)
[2016-06-11] MEDS: LIDOCAINE PATCH REMOVAL TOP SCH (19:54)
[2016-06-11 22:45] VITALS: BP 120/60; PULSE 81; RESP 18; TEMP 98.7; O2SAT 97
--- NOTE | 2016-06-12 07:50 | NUR ---
SHIFT SUMMARY Otis was considerably more cooperative this night. He requested all HS meds be given at 745 so he could sleep. He then couldn't sleep and requested a snack after midnight. He then put CPAP on and slept. Used call light most of the time appropriately. He did get up a few times setting off alarms, not calling, but he was reasonably polite and waited for staff. He argued some about his sleep meds. Staff did not engage with him and explained that is up to his dr and the dr has said no to any more sleep meds. When focusing on how I could work together with him, ,it went well. He apologized for being "A Jerk" and visited for a few minutes with staff. This a.m., he is demanding of staff's immediate attention, but still is better than in previous days behavior. He ambulated with 1 assist min. Used 4WW and gait belt. Continent of bowel and bladder.
[2016-06-12 08:00] VITALS: BP 144/67; PULSE 87; RESP 16; TEMP 98.5; O2SAT 91
[2016-06-12] MEDS: INSULIN ASPART 100 UNIT/ML SQ SCH ×3 (08:08→17:41)
[2016-06-12] MEDS: CYCLOBENZAPRINE 10 MG TABLET PO SCH ×3 (08:17→20:23)
[2016-06-12] MEDS: TORSEMIDE 20 MG TABLET PO SCH (08:17)
[2016-06-12] MEDS: ACYCLOVIR 200 MG CAPSULE PO SCH ×2 (08:17→20:23)
[2016-06-12] MEDS: CHOLECALCIFEROL PO SCH ×2 (08:17→20:23)
[2016-06-12] MEDS: ESCITALOPRAM 20 MG TABLET PO SCH (08:17)
[2016-06-12] MEDS: CALCIUM CITRATE PO SCH ×2 (08:17→20:23)
[2016-06-12] MEDS: DOCUSATE SODIUM 100 MG CAPSULE PO SCH ×2 (08:17→20:24)
[2016-06-12] MEDS: ATORVASTATIN 40 MG TABLET PO SCH (08:17)
[2016-06-12] MEDS: LIDOCAINE 5% PATCH TD SCH (08:18)
--- NOTE | 2016-06-12 10:35 | PNPDOC ---
Subjective Date DATE: 06/12/16 TIME: 10:07 Wilver Berg is seen this morning in follow up for his multiple myeloma with T12 burst fracture and recent episode of encephalopathy. He is seen while resting in bed , watching TV and is alert, orientated and appropriate on exam. His only complaint is that he didn't sleep well last night and states that it's because the nurses aren't giving him the right medications. He states that Dr. Torrez gives him medications at home and he sleeps great. Review of chart indicates that he received Ambien 10 mg prior to bed last night. Reportedly he takes Ambien 12.5 mg and melatonin plus an antihistamine sleep aid at home. Other than not sleeping, he has no complaints including no chest pain, shortness of breath, abdominal pain, nausea, vomiting or dysuria. Nursing notes indicate that he remains argumentative but his behaviors have been better. He states that he has been wearing his CPAP as indicated and nursing states that it appears to be helping with his encephalopathy. His appetite remains good and his bowels are moving. Blood sugars remain varied with noted hyperglycemia in AMs - 385 this AM. Objective Vital Signs Vital signs Vital Signs Date Time Temp Pulse Resp B/P Pulse Ox O2 Delivery O2 Flow Rate FiO2 06/11/16 22:45 98.7 81 18 120/60 97 Room Air Height (Feet): 5 Height (Inches): 11.00 Weight (Kilograms): 152.100 General General Appearance: Alert, Orientated x 3, Cooperative, No Acute Distress Eyes (Brief) Eyes: FOUND: PERRL, NOT FOUND: scleral icterus ENMT (Brief) ENMT: FOUND: mucosa moist Neck (Brief) Neck: FOUND: midline, NOT FOUND: nuchal rigidity, tracheal deviation Respiratory (Brief) Respiratory: FOUND: clear all noel, equal bilaterally, symmetrical, NOT FOUND : rales, wheezes Cardiovascular (Brief) Cardiac: FOUND: pedal edema (1+), regular rate, regular rhythm Abdomen (Brief) Abdominal: FOUND: BS normo active x4, soft, NOT FOUND: distended, tender Extremities (Brief) Extremity : Side: Bilateral Extremity: leg Extremity Finding: FOUND: edema (1+), NOT FOUND: deformity Lymphatic (Brief) Lymphatic: NOT FOUND: lymphedema Musculoskeletal (Brief) Musculoskeletal: FOUND: extremities move equally, NOT FOUND: deformity, loss of motion Integumentary (Brief) Integumentary: FOUND: dry, pink, warm Comments afebrile Neurologic (Brief) Neurological: FOUND: cranial 2-12 intact, NOT FOUND: facial droop Psychiatric (Brief) Psychiatric: FOUND: alert, attentive, normal affect, oriented Laboratory Laboratory Laboratory Tests 06/10/16 11:45 Laboratory Tests 06/10/16 11:45 Assessment & Plan Problems: (1) T12 burst fracture Qualifiers: Encounter type: subsequent encounter Assessment & Plan: T9-L2 decompression with laminectomy and fusion, and a Hemovac was placed. Dr. Hill recommended to discontinue if it drained less than 30 mL's in 8 hours. This was accidentally discontinued on 06/07/16 around 0430, and Dr. Hill recommended to monitor for infection and to replace dressing as needed. F/U with Dr. Hill on 06/14/16 at 1430 (2) Acute encephalopathy Status: Resolved (3) Hypoxia Status: Resolved Assessment & Plan: Sats decreased to 83% on room air with PT (4) Lower extremity edema Status: Acute Qualifiers: Laterality: bilateral Qualified Codes: R60.0 - Localized edema (5) VTE (venous thromboembolism) Status: Chronic Assessment & Plan: on Xarelto (6) Multiple myeloma Status: Chronic Assessment & Plan: Sees Dr. Chung (7) Diabetes type I Status: Chronic Assessment & Plan: Dx age 19 (8) CKD (chronic kidney disease) stage 3, GFR 30-59 ml/min Status: Chronic Assessment & Plan: sees Dr. Erwin (9) COLLEEN on CPAP Status: Chronic (10) Morbid obesity with BMI of 45.0-49.9, adult Status: Chronic (11) Abrasion of left knee Status: Acute Assessment & Plan: Status post fall on 06/08/16 Plan/Intensity of Service 06/12: Theo. 1. Acute encephalopathy - resolved: * Patient is alert and orientated today and appears improved with use of CPAP. * Labs obtained were unremarkable with the exception of moderate protein calorie malnutrition. Will consult dietary for recommendations. * Recheck labs in AM to monitor blood counts, electrolytes and renal function. * Patient continues to complain of poor sleeping. Sleep disruption may be playing a role in encephalopathy. Continue to monitor for confusion. 2. T-12 burst fracture * Continue with therapy and pain control per Dr. Rhodes for strengthening and improvement in functional ability. Patient moves easily in bed without signs of distress. 3. Diabetes, uncontrolled: * Blood sugars remain variable with noted hyperglycemia in AMs (>250 since admission). Will increase Lantus 10% to 66 units HS and continue to monitor blood sugars closely. * Continue to adjust daytime insulin as indicated with sliding scale available. May consider consulting Dr. Jackman for additional expertise. 4. Stage 3 CKD: * Follows with Dr. Erwin. Renal function at base line per prior lab records. Continue to monitor periodically. 5. COLLEEN on CPAP: * Patient agreeable to using CPAP, and states that he has been using it more recently. Nursing reports improvement in behaviors and confusion since increased use with CPAP. Continue to have nursing assist with placement of equipment or call respiratory therapy during naps and at night. * Sedatives and narcotics need to be minimized and Ambien should certainly only be used in conjunction with CPAP. Monitor closely. 6. Lower extremity edema: * Recommend elation while resting in bed and consider MAHI hose. 7. Multiple myeloma: - New diagnosis - moderate protein calorie. Code Status Full Code Hospital Course Summary Disclaimer The hospital course summary below is not to be considered part of the above Progress Note. Hospital Course Summary 06/07/16 Agree with admission to IRU. Dr. Rhodes spoke with Dr. Hill about the accidental discontinuation of the Hemovac drain. He recommends to simply watch it for infection and reapply dressing as needed. Hypoxia - sats decreased to 83% on room air while working with PT. Will obtain CXR (CXR from [facility] showed cardiomegaly). Start monitoring continuous pulse oximetry and apply oxygen as needed to maintain sats >90%. May need diuresis - pt reports an increase in B/L lower extremity edema since the accident. He is on torsemide 40 mg daily. Creatinine on admission was 1.7 - baseline. DM type 1 - sees an white shoe ragger in [place]. Monitor glucose; pt approved to manage his own insulin dosing schedule. Normocytic anemia - chronic. Hgb 9.0 on IRU admission. Multiple myeloma - weekly chemo; managed by Dr. Chung. Consult Dr. Geronimo for metabolic bone workup. Hx DVT - continue Xarelto. 06/08/16 Generally doing well, patient reports discharge anticipated tomorrow. Superficial skin abrasion left knee with skin tag-optimally skin tag should be removed which will attempt to do in the morning. Mild hypoglycemia earlier in the day on chart review. 06/09/16 Hypoglycemia: Would recommend to reduce his mealtime dosing. He is asymptomatic with hypoglycemia. Necrotic skin trimmed off of abrasion borders and dressing applied by nursing. Back dressing trimmed where it was peeling off, and the bottom was reinforced. Recommended to patient that he should stay in IRU and to delay discharge home. Cognitive evaluation ordered. 06/10/16 Acute encephalopathy: We checked his blood sugar, which was 245. He looks slightly pale and jaundiced. We'll check a CBC, CMP, ammonia, lactate program. Also, tone, and. Will assess vitamin B12, folate, TSH, and pre-albumin because of his acute encephalopathy. We'll also check a urinalysis. He has been afebrile and doesn't have any sustained SIRS criteria. 06/12: Theo. 1. Acute encephalopathy - resolved: * Patient is alert and orientated today and appears improved with use of CPAP. * Labs obtained were unremarkable with the exception of moderate protein calorie malnutrition. Will consult dietary for recommendations. * Recheck labs in AM to monitor blood counts, electrolytes and renal function. * Patient continues to complain of poor sleeping. Sleep disruption may be playing a role in encephalopathy. Continue to monitor for confusion. 2. T-12 burst fracture * Continue with therapy and pain control per Dr. Rhodes for strengthening and improvement in functional ability. Patient moves easily in bed without signs of distress. 3. Diabetes, uncontrolled: * Blood sugars remain variable with noted hyperglycemia in AMs (>250 since admission). Will increase Lantus 10% to 66 units HS and continue to monitor blood sugars closely. * Continue to adjust daytime insulin as indicated with sliding scale available. May consider consulting Dr. Jackman for additional expertise. 4. Stage 3 CKD: * Follows with Dr. Erwin. Renal function at base line per prior lab records. Continue to monitor periodically. 5. COLLEEN on CPAP: * Patient agreeable to using CPAP, and states that he has been using it more recently. Nursing reports improvement in behaviors and confusion since increased use with CPAP. Continue to have nursing assist with placement of equipment or call respiratory therapy during naps and at night. * Sedatives and narcotics need to be minimized and Ambien should certainly only be used in conjunction with CPAP. Monitor closely. 6. Lower extremity edema: * Recommend elation while resting in bed and consider MAHI hose. 7. Multiple myeloma: - New diagnosis - moderate protein calorie. ZENAIDA CASSIDY Jun 12, 2016 10:13
[2016-06-12] MEDS: INSULIN ASPART 100 UNIT/ML SQ PRN (11:43)
--- NOTE | 2016-06-12 15:25 | PNPDOC ---
IRU Subjective Date DATE: 06/10/16 TIME: 17:19 Pt evaluated multiple times 06/10/16. Note entered today. Subjective Pt showing signs of confusion and loss oflogical thought. He is unable to answer location or simple math questions. He is refusing to work with therapy on safety issues and fell/nearly fell two times today. IRU Objective Vital Signs Vital signs Vital Signs Date Time Temp Pulse Resp B/P Pulse Ox O2 Delivery O2 Flow Rate FiO2 06/12/16 08:00 98.5 87 16 144/67 91 Room Air Height (Feet): 5 Height (Inches): 11.00 Weight (Kilograms): 152.100 General General Appearance: Orientated x 1, Confused, Unable to walk Respiratory (Brief) Respiratory: FOUND: clear all noel, equal bilaterally, NOT FOUND: rales Cardiovascular (Brief) Cardiac: FOUND: regular rate, regular rhythm Capillary Refill: <2 sec Laboratory Laboratory Laboratory Tests Test 06/10/16 15:45 06/10/16 17:22 06/10/16 20:42 06/11/16 05:38 Plasma Lactate 1.5MMOL/L Glucometer 105mg/dL 177mg/dL 260mg/dL Test 06/11/16 11:45 06/11/16 17:28 06/11/16 19:57 06/12/16 05:28 Glucometer 249mg/dL 85mg/dL 192mg/dL 385mg/dL Test 06/12/16 11:29 Glucometer 258mg/dL Assessment & Plan Problems: (1) Dyspnea Status: Acute Assessment & Plan: refuses to wear oxygen, stating he will wear it at home once he is discharged. (2) VTE (venous thromboembolism) Status: Chronic Assessment & Plan: medicl to manage. (3) Diabetes type I Status: Chronic Assessment & Plan: Pt still having issues with sugars toohigh or too low due at least in part to doses of Insulin. He insists on choosing his own insulin dose which does not always seem correct to us based on sugars adn pending meals. (4) T12 burst fracture Qualifiers: Encounter type: subsequent encounter Assessment & Plan: Unable to walk even with walker due to instability. He is tripping and runiing into other objects. Plan/Intensity of Service He is not safe to d/c home today. It took much time on the part of PT , OT , Nursing, Case management, they patients and myself to finally convince him to stay another couple days. Medicl is aware of situation and working up ms changes. No obvious cause yet. Code Status Full Code Interventions to Obtain Goals PT Treatment Plan: Therapeutic Exercise, Gait Training, Functional Activities , Patient/Family Education OT Treatment Plan: ADL's (basic care), Ther. Exercise for ADL's, UE Functional Training, Balance Training, Pt./Family Education ST Treatment Plan: Evaluation Only Hospital Course Summary Disclaimer The hospital course summary below is not to be considered part of the above Progress Note. Hospital Course Summary 06/07/16 Agree with admission to IRU. Dr. May spoke with Dr. Hill about the accidental discontinuation of the Hemovac drain. He recommends to simply watch it for infection and reapply dressing as needed. Hypoxia - sats decreased to 83% on room air while working with PT. Will obtain CXR (CXR from [facility] showed cardiomegaly). Start monitoring continuous pulse oximetry and apply oxygen as needed to maintain sats >90%. May need diuresis - pt reports an increase in B/L lower extremity edema since the accident. He is on torsemide 40 mg daily. Creatinine on admission was 1.7 - baseline. 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 Monitor glucose; pt approved to manage his own insulin dosing schedule. Normocytic anemia - chronic. Hgb 9.0 on IRU admission. Multiple myeloma - weekly chemo; managed by Dr. Chung. Consult Dr. Geronimo for metabolic bone workup. Hx DVT - continue Xarelto. 06/08/16 Generally doing well, patient reports discharge anticipated tomorrow. Superficial skin abrasion left knee with skin tag-optimally skin tag should be removed which will attempt to do in the morning. Mild hypoglycemia earlier in the day on chart review. 06/09/16 Hypoglycemia: Would recommend to reduce his mealtime dosing. He is asymptomatic with hypoglycemia. Necrotic skin trimmed off of abrasion borders and dressing applied by nursing. Back dressing trimmed where it was peeling off, and the bottom was reinforced. Recommended to patient that he should stay in IRU and to delay discharge home. Cognitive evaluation ordered. 06/10/16 Acute encephalopathy: We checked his blood sugar, which was 245. He looks slightly pale and jaundiced. We'll check a CBC, CMP, ammonia, lactate program. Also, tone, and. Will assess vitamin B12, folate, TSH, and pre-albumin because of his acute encephalopathy. We'll also check a urinalysis. He has been afebrile and doesn't have any sustained SIRS criteria. 06/12: [place]. 1. Acute encephalopathy - resolved: * Patient is alert and orientated today and appears improved with use of CPAP. * Labs obtained were unremarkable with the exception of moderate protein calorie malnutrition. Will consult dietary for recommendations. * Recheck labs in AM to monitor blood counts, electrolytes and renal function. * Patient continues to complain of poor sleeping. Sleep disruption may be playing a role in encephalopathy. Continue to monitor for confusion. 2. T-12 burst fracture * Continue with therapy and pain control per Dr. May for strengthening and improvement in functional ability. Patient moves easily in bed without signs of distress. 3. Diabetes, uncontrolled: * Blood sugars remain variable with noted hyperglycemia in AMs (>250 since admission). Will increase Lantus 10% to 66 units HS and continue to monitor blood sugars closely. * Continue to adjust daytime insulin as indicated with sliding scale available. May consider consulting Dr. Jackman for additional expertise. 4. Stage 3 CKD: * Follows with Dr. Erwin. Renal function at base line per prior lab records. Continue to monitor periodically. 5. COLLEEN on CPAP: * Patient agreeable to using CPAP, and states that he has been using it more recently. Nursing reports improvement in behaviors and confusion since increased use with CPAP. Continue to have nursing assist with placement of equipment or call respiratory therapy during naps and at night. * Sedatives and narcotics need to be minimized and Ambien should certainly only be used in conjunction with CPAP. Monitor closely. 6. Lower extremity edema: * Recommend elation while resting in bed and consider MAHI hose. 7. Multiple myeloma: - New diagnosis - moderate protein calorie. WEST MAY MD Jun 12, 2016 15:23
[2016-06-12 16:00] VITALS: BP 143/76; PULSE 84; RESP 18; TEMP 97.8; O2SAT 95
--- NOTE | 2016-06-12 18:42 | NUR ---
SHIFT SUMMARY RAY WAS SOMEWHAT COOPERATIVE WITH CALL LIGHT USE AND CARES TODAY, MOSTLY AFTER LUNCH TIME. HIS BS VARIED AND HE RECEIVED INSULIN ORDERED PER SLIDING SCALE. PT AGREED TO HAVE A SHOWER TODAY, HE DID HIS OWN MEGHANA CARE. DRESSING SITE IS STILL DRY AND INTACT. PT DID NOT COMPLAIN OF PAIN TODAY AND AGREED TO WEAR THE BRACE THIS AFTERNOON BEFORE HEADING TO DINNER.
[2016-06-12 20:00] VITALS: RESP 18
[2016-06-12] MEDS: ZOLPIDEM 10 MG TABLET PO SCH (20:23)
[2016-06-12] MEDS: TRAZODONE 100 MG TABLET PO SCH (20:24)
[2016-06-12] MEDS: [UNRECOGNIZED DRUG - OTHER] SQ SCH (20:29)
[2016-06-12] MEDS: INSULIN GLARGINE SQ SCH (20:29)
[2016-06-12] MEDS: LIDOCAINE PATCH REMOVAL TOP SCH (20:32)
[2016-06-12 22:55] VITALS: BP 132/61; PULSE 72; RESP 20; TEMP 97.6; O2SAT 97
--- NOTE | 2016-06-12 23:03 | PNPDOC ---
IRU Subjective Date DATE: 06/11/16 TIME: 1240 Subjective Patient in therapy during the visit. Also spoke with patient's . He is more relaxed today, more cooperative with physical therapy. Does feel though that he' s being overworked and that's why he is weak. IRU Objective Vital Signs Vital signs Vital Signs Date Time Temp Pulse Resp B/P Pulse Ox O2 Delivery O2 Flow Rate FiO2 06/12/16 16:00 97.8 84 18 143/76 95 Room Air Height (Feet): 5 Height (Inches): 11.00 Weight (Kilograms): 152.100 General General Appearance: Alert, Orientated x 2 Respiratory (Brief) Respiratory: FOUND: clear all noel, equal bilaterally Cardiovascular (Brief) Cardiac: FOUND: regular rate, regular rhythm Neurologic (Brief) Comments Patient more alert, able to carry on normal conversation. Much improved over yesterday. Laboratory Laboratory Laboratory Tests Test 06/11/16 05:38 06/11/16 11:45 06/11/16 17:28 06/11/16 19:57 Glucometer 260mg/dL 249mg/dL 85mg/dL 192mg/dL Test 06/12/16 05:28 06/12/16 11:29 06/12/16 17:36 06/12/16 20:20 Glucometer 385mg/dL 258mg/dL 105mg/dL 141mg/dL Assessment & Plan Problems: (1) Dyspnea Status: Acute Assessment & Plan: Continues to decline to use oxygen. (2) VTE (venous thromboembolism) Status: Chronic Assessment & Plan: Managed by medical (3) Diabetes type I Status: Chronic Assessment & Plan: Managed by medical, still having some issues with blood sugars due to patient's dosing schedule. (4) T12 burst fracture Qualifiers: Encounter type: subsequent encounter Assessment & Plan: Patient is significantly out of shape. He has been more cooperative with physical therapy and occupational therapy today. He still insists on using the walker his preferred way, rather than recommended usage. He is still unstable on his feet and frequently nearly falling. Code Status Full Code Interventions to Obtain Goals PT Treatment Plan: Therapeutic Exercise, Gait Training, Functional Activities , Patient/Family Education OT Treatment Plan: ADL's (basic care), Ther. Exercise for ADL's, UE Functional Training, Balance Training, Pt./Family Education ST Treatment Plan: Evaluation Only Hospital Course Summary Disclaimer The hospital course summary below is not to be considered part of the above Progress Note. Hospital Course Summary 06/07/16 Agree with admission to IRU. Dr. May spoke with Dr. Hill about the accidental discontinuation of the Hemovac drain. He recommends to simply watch it for infection and reapply dressing as needed. Hypoxia - sats decreased to 83% on room air while working with PT. Will obtain CXR (CXR from [facility] showed cardiomegaly). Start monitoring continuous pulse oximetry and apply oxygen as needed to maintain sats >90%. May need diuresis - pt reports an increase in B/L lower extremity edema since the accident. He is on torsemide 40 mg daily. Creatinine on admission was 1.7 - baseline. DM type 1 - sees an packaging specialist in [place]. Monitor glucose; pt approved to manage his own insulin dosing schedule. Normocytic anemia - chronic. Hgb 9.0 on IRU admission. Multiple myeloma - weekly chemo; managed by Dr. Chung. Consult Dr. Geronimo for metabolic bone workup. Hx DVT - continue Xarelto. 06/08/16 Generally doing well, patient reports discharge anticipated tomorrow. Superficial skin abrasion left knee with skin tag-optimally skin tag should be removed which will attempt to do in the morning. Mild hypoglycemia earlier in the day on chart review. 06/09/16 Hypoglycemia: Would recommend to reduce his mealtime dosing. He is asymptomatic with hypoglycemia. Necrotic skin trimmed off of abrasion borders and dressing applied by nursing. Back dressing trimmed where it was peeling off, and the bottom was reinforced. Recommended to patient that he should stay in IRU and to delay discharge home. Cognitive evaluation ordered. 06/10/16 Acute encephalopathy: We checked his blood sugar, which was 245. He looks slightly pale and jaundiced. We'll check a CBC, CMP, ammonia, lactate program. Also, tone, and. Will assess vitamin B12, folate, TSH, and pre-albumin because of his acute encephalopathy. We'll also check a urinalysis. He has been afebrile and doesn't have any sustained SIRS criteria. 06/12: [place]. 1. Acute encephalopathy - resolved: * Patient is alert and orientated today and appears improved with use of CPAP. * Labs obtained were unremarkable with the exception of moderate protein calorie malnutrition. Will consult dietary for recommendations. * Recheck labs in AM to monitor blood counts, electrolytes and renal function. * Patient continues to complain of poor sleeping. Sleep disruption may be playing a role in encephalopathy. Continue to monitor for confusion. 2. T-12 burst fracture * Continue with therapy and pain control per Dr. May for strengthening and improvement in functional ability. Patient moves easily in bed without signs of distress. 3. Diabetes, uncontrolled: * Blood sugars remain variable with noted hyperglycemia in AMs (>250 since admission). Will increase Lantus 10% to 66 units HS and continue to monitor blood sugars closely. * Continue to adjust daytime insulin as indicated with sliding scale available. May consider consulting Dr. Jackman for additional expertise. 4. Stage 3 CKD: * Follows with Dr. Erwin. Renal function at base line per prior lab records. Continue to monitor periodically. 5. COLLEEN on CPAP: * Patient agreeable to using CPAP, and states that he has been using it more recently. Nursing reports improvement in behaviors and confusion since increased use with CPAP. Continue to have nursing assist with placement of equipment or call respiratory therapy during naps and at night. * Sedatives and narcotics need to be minimized and Ambien should certainly only be used in conjunction with CPAP. Monitor closely. 6. Lower extremity edema: * Recommend elation while resting in bed and consider MAHI hose. 7. Multiple myeloma: - New diagnosis - moderate protein calorie. WEST MAY MD Jun 12, 2016 23:03
[2016-06-13] MEDS: HYDROCODONE/APAP 5 mg/325 mg TABLET PO PRN (01:20)
--- NOTE | 2016-06-13 01:20 | NUR ---
prn given Pt is awake, restless, up and down several times, pt requested something for sleep, pt given [place] 2 tabs po, pt is now in bed with 2 bed rails up and bed alarm on
--- NOTE | 2016-06-13 02:20 | NUR ---
prn update Pt is resting in bed with 2 bed rails up and bed alarm on.
--- NOTE | 2016-06-13 02:50 | NUR ---
Chart Check 24 hour chart check completed
[2016-06-13 05:24] LABS: BASOPHILS % (AUTO) 0.3 % (0-2); EOSINOPHILS # (AUTO) 0.3 T/MM3 (0-0.5); EOSINOPHILS % (AUTO) 3.8 % (0-4); HCT - HEMATOCRIT 28.2 % (41-53); HGB - HEMOGLOBIN 8.6 GM/DL (13.5-17.5); IMMATURE GRANULOCYTE # (AUTO) 0.03 T/MM3 (0.00-0.03); IMMATURE GRANULOCYTE % (AUTO) 0.4 % (0.0-0.5); LYMPHOCYTES # (AUTO) 1.6 T/MM3 (1-4.8); LYMPHOCYTES % (AUTO) 22.4 % (23-45); MEAN CORPUSCULAR HGB 29.9 UUG (26-34); MEAN CORPUSCULAR HGB CONC(MCHC 30.5 GM/DL (31-37); MEAN CORPUSCULAR VOLUME 97.9 UM3 (80-100); MEAN PLATELET VOLUME 9.3 UM3 (9.4-12.4); MONOCYTES # (AUTO) 0.7 T/MM3 (0-0.8); MONOCYTES % (AUTO) 9.6 % (0-9.0); NEUTROPHILS #(AUTO)-ABSOLUTE 4.6 T/MM3 (1.8-7.7); NEUTROPHILS % (AUTO) 63.5 % (33-66); RED BLOOD COUNT 2.88 M/MM3 (4.50-5.90); WBC - WHITE BLOOD COUNT 7.2 T/MM3 (4.5-11.0)
[2016-06-13 05:34] LABS: ANION GAP 11 MEQ/L (5-15); BUN/CREATININE RATIO 23 RATIO (6-26); CALCIUM 8.6 MG/DL (8.4-10.2); CHLORIDE 98 MEQ/L (98-107); CO2 - CARBON DIOXIDE 30 MEQ/L (22-30); CREATININE 1.7 MG/DL (0.8-1.5); GLOMERULAR FILTRATION RATE 41; GLUCOSE 307 MG/DL (75-110); POTASSIUM 4.2 MEQ/L (3.6-5); SODIUM 139 MEQ/L (134-144)
--- NOTE | 2016-06-13 05:40 | NUR ---
patient status Pt blood sugar 304, pt offered sliding scale insulin, pt states "I just want to sleep". Pt has been adjusting his own insulin, pt accucheck at hs 141, pt had 66 units of insulin ordered, pt states I will only take 26 units of long acting insulin. Pt is in bed resting with cpap on, will monitor pt.
--- NOTE | 2016-06-13 06:40 | NUR ---
shift summary Pt is alert and oriented x3, pt is uncooperative at times, pt is not safety aware, pt up several times during the night to the bathroom, pt throws himself into bed, pt states "I know what I am doing" Pt had to bed steady several times during nights, pt unable to sleep, states he has pain 1-2, 2 [place] given at 0120 for pain and to help with sleep. Pt accuchecks at 2100 was 141, pt only willing to take 26 units of insulin instead of the ordered 66 units. Pt accucheck this am 304, sliding scale insulin offered, pt refused at this time. Pt is in bed with 2 bed rails up and bed alarm on.
[2016-06-13 07:45] VITALS: BP 171/72; PULSE 94; RESP 18; TEMP 97.4; O2SAT 92
[2016-06-13] MEDS: INSULIN ASPART 100 UNIT/ML SQ SCH ×3 (08:25→17:43)
[2016-06-13] MEDS: CYCLOBENZAPRINE 10 MG TABLET PO SCH ×3 (08:27→20:25)
[2016-06-13] MEDS: CHOLECALCIFEROL PO SCH ×2 (08:27→20:25)
[2016-06-13] MEDS: TORSEMIDE 20 MG TABLET PO SCH (08:27)
[2016-06-13] MEDS: DOCUSATE SODIUM 100 MG CAPSULE PO SCH ×2 (08:27→20:25)
[2016-06-13] MEDS: CALCIUM CITRATE PO SCH ×2 (08:27→20:25)
[2016-06-13] MEDS: LIDOCAINE 5% PATCH TD SCH (08:28)
[2016-06-13] MEDS: ATORVASTATIN 40 MG TABLET PO SCH (08:28)
[2016-06-13] MEDS: ACYCLOVIR 200 MG CAPSULE PO SCH ×2 (08:28→20:25)
[2016-06-13] MEDS: ESCITALOPRAM 20 MG TABLET PO SCH (08:28)
--- NOTE | 2016-06-13 15:27 | NUR ---
Mod. Protein malnutrition consult Diet: CC 1999 Based on the [place] Felder, with an activity factor of 1.3 and an injury factor of 1.1 calorie needs are ~ 2735( [id number]) On 06/11 patient consumed 98% of recommended protein calories and on 06/12 the patient consumed 69% of his recommended protein calories. His calories are not adequate for the activity he is doing while in the hospital, however patient was adamant about not increasing his calorie intake, because of his success on "[employer]". The patient states he has lost 28 lbs on the program. Will continue to provide diet as ordered, CC 1999kcal. RD available @ 6656 Addendum: 06/13/16 at [address] Student charting reviewed by Lcac Radar Operator/Navigator.
[2016-06-13 16:03] VITALS: BP 123/64; PULSE 79; RESP 18; TEMP 98.4; O2SAT 97
--- NOTE | 2016-06-13 17:45 | NUR ---
BLOOD GLUCOSE NOTE AT 1645 BLOOD GLUCOSE 59, GRAPE JUICE GIVEN TO PATIENT. RECHECKED AT 57, 2ND GRAPE JUICE GIVEN IN ADDITION TO DINNER. RECHECKED AGAIN AT 1720, BS 107. PATIENT STILL EATING DINNER. PATIENT REQUESTED 26 UNITS OF NOVOLOG. I DISCUSSED WITH PATIENT ABOUT DECREASING INSULIN DOSE DUE TO LOW BLOOD GLUCOSE EARLIER. PATIENT AGREED TO TAKE 15 UNITS INSTEAD. WILL CONT TO MONITOR.
--- NOTE | 2016-06-13 19:00 | NUR ---
SHIFT SUMMARY PATIENT ALERT AND ORIENTED X 3, UP WITH ONE AND GAIT BELT TO WHEELCHAIR. PATIENT RESISTANT INSTRUCTIONS TO CALL FOR ASSISTANCE FOR AMBULATION. PATIENT INSTRUCTED FREQUENTLY ABOUT FALL PREVENTION AND SAFETY. PATIENT WAS COMPLIANT WITH WEARING BACK BRACE TODAY WHILE UP. PATIENT ATE ADEQUATELY FOR MEALS. DENIES PAIN. PATIENT BS ELEVATED IN AM AND LUNCH, PATIENT DECIDED OWN INSULIN DOSE. LOW BS 59 AT 1700, SEE NOTE. BS STABILIZED TO 107. BP ELEVATED IN AM, BP IMPROVED IN AFTERNOON. WILL CONT TO MONITOR.
[2016-06-13 19:39] VITALS: BP 148/69; PULSE 84; RESP 18; TEMP 97.8; O2SAT 96
[2016-06-13] MEDS: LIDOCAINE PATCH REMOVAL TOP SCH (21:00)
[2016-06-13] MEDS: INSULIN GLARGINE SQ SCH (22:00)
[2016-06-13] MEDS: [UNRECOGNIZED DRUG - OTHER] SQ SCH (22:00)
[2016-06-13] MEDS: INSULIN ASPART 100 UNIT/ML SQ PRN (22:05)
[2016-06-13] MEDS: ZOLPIDEM 10 MG TABLET PO SCH (22:34)
[2016-06-13] MEDS: TRAZODONE 100 MG TABLET PO SCH (22:35)
--- NOTE | 2016-06-13 22:50 | PNPDOC ---
IRU Subjective Date DATE: 06/13/16 TIME: 22:47 Subjective Pt frustrated, had some stress with PT and OT today. Ultimately he felt like if he was given a goal of a day for d/c, that it would help. IRU Objective Vital Signs Vital signs Vital Signs Date Time Temp Pulse Resp B/P Pulse Ox O2 Delivery O2 Flow Rate FiO2 06/13/16 19:39 97.8 84 18 148/69 96 Room Air Height (Feet): 5 Height (Inches): 11.00 Weight (Kilograms): 139.600 General General Appearance: Alert, Orientated x 3 Respiratory (Brief) Respiratory: FOUND: clear all noel, equal bilaterally Cardiovascular (Brief) Cardiac: FOUND: regular rate, regular rhythm Laboratory Laboratory Laboratory Tests Test 06/12/16 05:28 06/12/16 11:29 06/12/16 17:36 06/12/16 20:20 Glucometer 385mg/dL 258mg/dL 105mg/dL 141mg/dL Test 06/13/16 05:05 06/13/16 05:06 06/13/16 08:15 06/13/16 11:16 Glucometer 304mg/dL 386mg/dL 362mg/dL White Blood Count 7.2T/MM3 Red Blood Count 2.88M/MM3 Hemoglobin 8.6GM/DL Hematocrit 28.2% Mean Corpuscular Volume 97.9UM3 Mean Corpuscular Hemoglobin 29.9UUG Mean Corpuscular Hemoglobin Concent 30.5GM/DL RDW Standard Deviation 51.4FL Platelet Count 251T/MM3 Mean Platelet Volume 9.3UM3 Immature Granulocyte % (Auto) 0.4% Neutrophils (%) (Auto) 63.5% Lymphocytes (%) (Auto) 22.4% Monocytes (%) (Auto) 9.6% Eosinophils (%) (Auto) 3.8% Basophils (%) (Auto) 0.3% Absolute Immature Granulocyte (auto 0.03T/MM3 Absolute Neutrophils (auto) 4.6T/MM3 Absolute Lymphocytes (auto) 1.6T/MM3 Absolute Monocytes (auto) 0.7T/MM3 Absolute Eosinophils (auto) 0.3T/MM3 Absolute Basophils (auto) 0.0T/MM3 Turbidity < 20 Sodium Level 139MEQ/L Potassium Level 4.2MEQ/L Chloride Level 98MEQ/L Carbon Dioxide Level 30MEQ/L Anion Gap 11MEQ/L Blood Urea Nitrogen 39.0MG/DL Creatinine 1.7MG/DL Glomerular Filtration Rate Calc 41 BUN/Creatinine Ratio 23RATIO Glucose Level 307MG/DL Calculated Osmolality 289MOSM/KG Calcium Level 8.6MG/DL Icterus Index < 2 Chemistry Specimen Hemolysis < 15 Test 06/13/16 16:46 06/13/16 17:03 06/13/16 17:24 06/13/16 21:01 Glucometer 59mg/dL 57mg/dL 107mg/dL 175mg/dL Assessment & Plan Problems: (1) Dyspnea Status: Acute Assessment & Plan: declining to wear oxygen. (2) VTE (venous thromboembolism) Status: Chronic Assessment & Plan: medical to manage (3) Diabetes type I Status: Chronic Assessment & Plan: medical to manage (4) T12 burst fracture Qualifiers: Encounter type: subsequent encounter Assessment & Plan: OVerall strength is improving, but pt still has difficulty with safety issues. Set goal for Monday d/c if he cont to improve and put in effort. He agrees to this. Spent time today with PT and OT discussing and will revisit tomorrow. Code Status Full Code Interventions to Obtain Goals PT Treatment Plan: Therapeutic Exercise, Gait Training, Functional Activities , Patient/Family Education OT Treatment Plan: ADL's (basic care), Ther. Exercise for ADL's, UE Functional Training, Balance Training, Pt./Family Education ST Treatment Plan: Evaluation Only Hospital Course Summary Disclaimer The hospital course summary below is not to be considered part of the above Progress Note. Hospital Course Summary 06/07/16 Agree with admission to IRU. Dr. May spoke with Dr. Hill about the accidental discontinuation of the Hemovac drain. He recommends to simply watch it for infection and reapply dressing as needed. Hypoxia - sats decreased to 83% on room air while working with PT. Will obtain CXR (CXR from [facility] showed cardiomegaly). Start monitoring continuous pulse oximetry and apply oxygen as needed to maintain sats >90%. May need diuresis - pt reports an increase in B/L lower extremity edema since the accident. He is on torsemide 40 mg daily. Creatinine on admission was 1.7 - baseline. DM type 1 - sees an roll tension tester in [place]. Monitor glucose; pt approved to manage his own insulin dosing schedule. Normocytic anemia - chronic. Hgb 9.0 on IRU admission. Multiple myeloma - weekly chemo; managed by Dr. Chung. Consult Dr. Geronimo for metabolic bone workup. Hx DVT - continue Xarelto. 06/08/16 Generally doing well, patient reports discharge anticipated tomorrow. Superficial skin abrasion left knee with skin tag-optimally skin tag should be removed which will attempt to do in the morning. Mild hypoglycemia earlier in the day on chart review. 06/09/16 Hypoglycemia: Would recommend to reduce his mealtime dosing. He is asymptomatic with hypoglycemia. Necrotic skin trimmed off of abrasion borders and dressing applied by nursing. Back dressing trimmed where it was peeling off, and the bottom was reinforced. Recommended to patient that he should stay in IRU and to delay discharge home. Cognitive evaluation ordered. 06/10/16 Acute encephalopathy: We checked his blood sugar, which was 245. He looks slightly pale and jaundiced. We'll check a CBC, CMP, ammonia, lactate program. Also, tone, and. Will assess vitamin B12, folate, TSH, and pre-albumin because of his acute encephalopathy. We'll also check a urinalysis. He has been afebrile and doesn't have any sustained SIRS criteria. 06/12: [place]. 1. Acute encephalopathy - resolved: * Patient is alert and orientated today and appears improved with use of CPAP. * Labs obtained were unremarkable with the exception of moderate protein calorie malnutrition. Will consult dietary for recommendations. * Recheck labs in AM to monitor blood counts, electrolytes and renal function. * Patient continues to complain of poor sleeping. Sleep disruption may be playing a role in encephalopathy. Continue to monitor for confusion. 2. T-12 burst fracture * Continue with therapy and pain control per Dr. May for strengthening and improvement in functional ability. Patient moves easily in bed without signs of distress. 3. Diabetes, uncontrolled: * Blood sugars remain variable with noted hyperglycemia in AMs (>250 since admission). Will increase Lantus 10% to 66 units HS and continue to monitor blood sugars closely. * Continue to adjust daytime insulin as indicated with sliding scale available. May consider consulting Dr. Jackman for additional expertise. 4. Stage 3 CKD: * Follows with Dr. Erwin. Renal function at base line per prior lab records. Continue to monitor periodically. 5. COLLEEN on CPAP: * Patient agreeable to using CPAP, and states that he has been using it more recently. Nursing reports improvement in behaviors and confusion since increased use with CPAP. Continue to have nursing assist with placement of equipment or call respiratory therapy during naps and at night. * Sedatives and narcotics need to be minimized and Ambien should certainly only be used in conjunction with CPAP. Monitor closely. 6. Lower extremity edema: * Recommend elation while resting in bed and consider MAHI hose. 7. Multiple myeloma: - New diagnosis - moderate protein calorie. WEST MAY MD June 13, 2016 22:50
--- NOTE | 2016-06-14 02:30 | NUR ---
Status Pt has been unable to sleep through most of the night. Scheduled Ambien given. CPAP filled, and placement confirmed. Twice last night when this nurse rounded on pt his table had been turned perpendicular to his bed. On the second occasion (0150) the pt had one leg out of bed, and was half sitting up from the bed with the light on. When this nurse asked what the pt was doing he stated "Trying to get my tray back here". When asked why he hadn't using his call light, pt stated "I can do somethings for myself." Pt said he was having trouble sleeping. Pt assisted back to lying in bed. bed alarm confirmed to be on. While this nurse straightened the table, the pt displayed symptoms of hallucination by subtly plucking at the air with his fingers while his eyes were closed. When asked what he was doing the pt replied " waiting for you" and put his hands at his sides.
[2016-06-14 04:58] VITALS: BP 169/97; PULSE 87; RESP 20; TEMP 98.6; O2SAT 94
--- NOTE | 2016-06-14 05:21 | NUR ---
Summary Pt has been restless through the night. When up to the BR Pt requested his BS to be checked. BS 175 at 0400. No change since HS BS. This nurse asked pt if he had been using his CPAP. Pt stated " Right up until you walked in". The water level in the CPAP had minimal change since being filled earlier this shift. Per the pt his CPAP usually goes from the Maximum line to the Minimum line in one night. Pt requested up to the chair. Pt complained about having to use his TLSO brace but did use it the whole time while sitting up. Pt assisted back to bed at 0500. At 0530 pt lying in bed, CPAP on, and pt's hands were again plucking at the air as if moving items from his bed to his bedside table. When asked, the pt verbally confirmed having had hallucinations the past couple of nights. Pt up to his chair at 0600 with TLSO brace and coffee.
[2016-06-14] MEDS: INSULIN ASPART 100 UNIT/ML SQ PRN (06:14)
[2016-06-14 08:00] VITALS: BP 148/61; PULSE 94; RESP 20; TEMP 97.5; O2SAT 94
[2016-06-14] MEDS: CHOLECALCIFEROL PO SCH ×2 (08:29→20:57)
[2016-06-14] MEDS: DOCUSATE SODIUM 100 MG CAPSULE PO SCH ×2 (08:29→20:57)
[2016-06-14] MEDS: ESCITALOPRAM 20 MG TABLET PO SCH (08:29)
[2016-06-14] MEDS: TORSEMIDE 20 MG TABLET PO SCH (08:29)
[2016-06-14] MEDS: ACYCLOVIR 200 MG CAPSULE PO SCH ×2 (08:29→20:57)
[2016-06-14] MEDS: CALCIUM CITRATE PO SCH ×2 (08:29→20:57)
[2016-06-14] MEDS: ATORVASTATIN 40 MG TABLET PO SCH (08:29)
[2016-06-14] MEDS: CYCLOBENZAPRINE 10 MG TABLET PO SCH ×3 (08:29→20:57)
[2016-06-14] MEDS: INSULIN ASPART 100 UNIT/ML SQ SCH ×3 (08:30→17:52)
[2016-06-14] MEDS: LIDOCAINE 5% PATCH TD SCH (08:33)
[2016-06-14] MEDS: HYDROCODONE/APAP 5 mg/325 mg TABLET PO PRN (11:59)
--- NOTE | 2016-06-14 14:16 | PNPDOC ---
Subjective Date DATE: 06/14/16 TIME: 13:42 Subjective Ray is seen this morning during breakfast. He is alert and orientated during conversation. Verbalizes his wish to be discharged home in the near future. Denies having pain or feeling short of breath. Fasting BGM this morning was 374. Lantus increased to 66 units. BP 148/61. Nursing reports patient had hallucinations overnight likely due to Ambien use. Objective Vital Signs Vital signs Vital Signs Date Time Temp Pulse Resp B/P Pulse Ox O2 Delivery O2 Flow Rate FiO2 06/14/16 08:00 97.5 94 20 148/61 94 Room Air Height (Feet): 5 Height (Inches): 11.00 Weight (Kilograms): 139.600 General General Appearance: Alert, Orientated x 3, Cooperative, No Acute Distress Eyes (Brief) Eyes: FOUND: EOMI ENMT (Brief) ENMT: FOUND: mucosa moist, normal dentition, NOT FOUND: pharnyx erythema Neck (Brief) Neck: FOUND: midline, NOT FOUND: adenopathy, carotid bruits, tracheal deviation Respiratory (Brief) Respiratory: FOUND: clear all noel, equal bilaterally, NOT FOUND: wheezes Cardiovascular (Brief) Cardiac: FOUND: regular rate, regular rhythm, NOT FOUND: murmur, pedal edema Capillary Refill: <2 sec Abdomen (Brief) Abdominal: FOUND: BS normo active x4, soft, NOT FOUND: distended, tender Lymphatic (Brief) Lymphatic: NOT FOUND: adenopathy Musculoskeletal (Brief) Musculoskeletal: FOUND: tenderness (thoracic back pain) Integumentary (Brief) Integumentary: FOUND: dry, pink, warm Neurologic (Brief) Neurological: FOUND: cranial 2-12 intact Psychiatric (Brief) Psychiatric: FOUND: alert, attentive, normal affect, oriented Laboratory Laboratory Laboratory Tests 06/13/16 05:06 Laboratory Tests 06/13/16 05:06 Assessment & Plan Problems: (1) T12 burst fracture Qualifiers: Encounter type: subsequent encounter Assessment & Plan: T9-L2 decompression with laminectomy and fusion, and a Hemovac was placed. Dr. Hill recommended to discontinue if it drained less than 30 mL's in 8 hours. This was accidentally discontinued on 06/07/16 around 0430, and Dr. Hill recommended to monitor for infection and to replace dressing as needed. F/U with Dr. Hill on 06/14/16 at 1430 (2) Acute encephalopathy Status: Resolved (3) Hypoxia Status: Resolved Assessment & Plan: Sats decreased to 83% on room air with PT (4) Lower extremity edema Status: Acute Qualifiers: Laterality: bilateral Qualified Codes: R60.0 - Localized edema (5) VTE (venous thromboembolism) Status: Chronic Assessment & Plan: on Xarelto (6) Multiple myeloma Status: Chronic Assessment & Plan: Sees Dr. Chung (7) Diabetes type I Status: Chronic Assessment & Plan: Dx age 19 (8) CKD (chronic kidney disease) stage 3, GFR 30-59 ml/min Status: Chronic Assessment & Plan: sees Dr. Erwin (9) COLLEEN on CPAP Status: Chronic (10) Morbid obesity with BMI of 45.0-49.9, adult Status: Chronic (11) Abrasion of left knee Status: Acute Assessment & Plan: Status post fall on 06/08/16 Plan/Intensity of Service 06/14/16 Continue to work on better glucose control. Lantus was increased to 66 units at at bedtime. Patient decides on how much NovoLog insulin. He receives with meals. At noon today he took 26 units, 24 units with breakfast, 15 units last evening with supper. This is likely why patient does have some helmet coverer hyperglycemia. [place] and Lidoderm for pain control Ambien at HS to help with sleeping. Monitor for hallucinations. Continue to encourage work with PT and OT for ongoing strengthening and fall reduction Pt is hopeful for discharge in the near future Code Status Full Code Hospital Course Summary Disclaimer The hospital course summary below is not to be considered part of the above Progress Note. Hospital Course Summary 06/07/16 Agree with admission to IRU. Dr. Rhodes spoke with Dr. Hill about the accidental discontinuation of the Hemovac drain. He recommends to simply watch it for infection and reapply dressing as needed. Hypoxia - sats decreased to 83% on room air while working with PT. Will obtain CXR (CXR from [facility] showed cardiomegaly). Start monitoring continuous pulse oximetry and apply oxygen as needed to maintain sats >90%. May need diuresis - pt reports an increase in B/L lower extremity edema since the accident. He is on torsemide 40 mg daily. Creatinine on admission was 1.7 - baseline. DM type 1 - sees an negative turner apprentice in [place]. Monitor glucose; pt approved to manage his own insulin dosing schedule. Normocytic anemia - chronic. Hgb 9.0 on IRU admission. Multiple myeloma - weekly chemo; managed by Dr. Chung. Consult Dr. Geronimo for metabolic bone workup. Hx DVT - continue Xarelto. 06/08/16 Generally doing well, patient reports discharge anticipated tomorrow. Superficial skin abrasion left knee with skin tag-optimally skin tag should be removed which will attempt to do in the morning. Mild hypoglycemia earlier in the day on chart review. 06/09/16 Hypoglycemia: Would recommend to reduce his mealtime dosing. He is asymptomatic with hypoglycemia. Necrotic skin trimmed off of abrasion borders and dressing applied by nursing. Back dressing trimmed where it was peeling off, and the bottom was reinforced. Recommended to patient that he should stay in IRU and to delay discharge home. Cognitive evaluation ordered. 06/10/16 Acute encephalopathy: We checked his blood sugar, which was 245. He looks slightly pale and jaundiced. We'll check a CBC, CMP, ammonia, lactate program. Also, tone, and. Will assess vitamin B12, folate, TSH, and pre-albumin because of his acute encephalopathy. We'll also check a urinalysis. He has been afebrile and doesn't have any sustained SIRS criteria. 06/12: [place]. 1. Acute encephalopathy - resolved: * Patient is alert and orientated today and appears improved with use of CPAP. * Labs obtained were unremarkable with the exception of moderate protein calorie malnutrition. Will consult dietary for recommendations. * Recheck labs in AM to monitor blood counts, electrolytes and renal function. * Patient continues to complain of poor sleeping. Sleep disruption may be playing a role in encephalopathy. Continue to monitor for confusion. 2. T-12 burst fracture * Continue with therapy and pain control per Dr. Rhodes for strengthening and improvement in functional ability. Patient moves easily in bed without signs of distress. 3. Diabetes, uncontrolled: * Blood sugars remain variable with noted hyperglycemia in AMs (>250 since admission). Will increase Lantus 10% to 66 units HS and continue to monitor blood sugars closely. * Continue to adjust daytime insulin as indicated with sliding scale available. May consider consulting Dr. Jackman for additional expertise. 4. Stage 3 CKD: * Follows with Dr. Erwin. Renal function at base line per prior lab records. Continue to monitor periodically. 5. COLLEEN on CPAP: * Patient agreeable to using CPAP, and states that he has been using it more recently. Nursing reports improvement in behaviors and confusion since increased use with CPAP. Continue to have nursing assist with placement of equipment or call respiratory therapy during naps and at night. * Sedatives and narcotics need to be minimized and Ambien should certainly only be used in conjunction with CPAP. Monitor closely. 6. Lower extremity edema: * Recommend elation while resting in bed and consider MAHI hose. 7. Multiple myeloma: - New diagnosis - moderate protein calorie. 06/14/16 Continue to work on better glucose control. Lantus was increased to 66 units at at bedtime. Patient decides on how much NovoLog insulin. He receives with meals. At noon today he took 26 units, 24 units with breakfast, 15 units last evening with supper. This is likely why patient does have some helmet coverer hyperglycemia. [place] and Lidoderm for pain control Ambien at HS to help with sleeping. Monitor for hallucinations. Continue to encourage work with PT and OT for ongoing strengthening and fall reduction Pt is hopeful for discharge in the near future TOM MATHEW APRN June 14, 2016 14:09
[2016-06-14 16:00] VITALS: BP 132/60; PULSE 80; RESP 16; TEMP 97.6; O2SAT 95
--- NOTE | 2016-06-14 19:31 | NUR ---
SHIFT SUMMARY PT HAS BEEN PLEASANT AND COOPERATIVE. PT CONTINUES TO SELF ADJUST NOVOLOG DOSAGE AT MEAL TIMES. PT AMBULATES WITH FWW, GAIT BELT AND TLSO BRACE. PT DID COOPERATE WITH WEARING BRACE MOST OF THE DAY EXCEPT WHEN UP TO BATHROOM. IS CURRENTLY RESTING IN BED.
[2016-06-14 19:41] VITALS: BP 150/70; PULSE 80; RESP 16; TEMP 97.5; O2SAT 95
[2016-06-14] MEDS: TRAZODONE 100 MG TABLET PO SCH (20:56)
[2016-06-14] MEDS: [UNRECOGNIZED DRUG - OTHER] SQ SCH (20:57)
[2016-06-14] MEDS: INSULIN GLARGINE SQ SCH (20:57)
[2016-06-14] MEDS: LIDOCAINE PATCH REMOVAL TOP SCH (20:58)
[2016-06-14] MEDS: LORAZEPAM 0.5 MG TABLET PO PRN (23:56)
[2016-06-15] MEDS ORDERED: INSULIN ASPART 100 UNIT/ML SQ ONE (03:00)
--- NOTE | 2016-06-15 03:19 | NUR ---
Status Pt used call light for help going to the BR. Pt stated "If you didn't have this bed alarm on I could have been to the bathroom and back before you noticed." Education provided regarding safety. Pt refused TLSO brace, had dizziness on standing, pivot transfer to . Pt managed own clothing. Cpap in use when back to bed. Alarm on. PRN BS check 365, orders received, charted in provider contact intervention. Addendum: 06/15/16 at 0636 by JACIEL WOO RN PRN BS to rule out BS for complaint of dizziness. PRN Ativan given earlier in evening see JEROMER. Pt denied blurred vision and headache.
--- NOTE | 2016-06-15 06:47 | NUR ---
Summary Pt has been to the BR multiple times this shift, with WC pivot transfer, refusing TLSO brace for "such a short distance". Pt states he has "slept well when I slept". Pt sleeping in bed at this time.
[2016-06-15] MEDS: CHOLECALCIFEROL PO SCH ×2 (08:28→21:43)
[2016-06-15] MEDS: ESCITALOPRAM 20 MG TABLET PO SCH (08:28)
[2016-06-15] MEDS: CALCIUM CITRATE PO SCH ×2 (08:28→21:43)
[2016-06-15] MEDS: CYCLOBENZAPRINE 10 MG TABLET PO SCH ×3 (08:28→21:44)
[2016-06-15] MEDS: INSULIN ASPART 100 UNIT/ML SQ SCH ×3 (08:28→18:07)
[2016-06-15] MEDS: DOCUSATE SODIUM 100 MG CAPSULE PO SCH ×2 (08:28→21:44)
[2016-06-15] MEDS: ACYCLOVIR 200 MG CAPSULE PO SCH ×2 (08:28→21:43)
[2016-06-15] MEDS: TORSEMIDE 20 MG TABLET PO SCH (08:28)
[2016-06-15] MEDS: ATORVASTATIN 40 MG TABLET PO SCH (08:28)
[2016-06-15 08:48] VITALS: BP 136/77; PULSE 79; RESP 20; TEMP 97.3; O2SAT 94
[2016-06-15] MEDS: LIDOCAINE 5% PATCH TD SCH (09:33)
--- NOTE | 2016-06-15 13:26 | PDIRUTEAM ---
Multidisciplinary Team Meeting Nursing Hx Incontinence: No Bladder Goal: 7+ Complete [place] Pradhan Y/N: No Bladder Continent or Incontine: Continent Incontinent Product Used: Patient's Own Underwear Number of Times Incontinent of: 0 Cleaning Ability-Bladder: 7+ Complete [place] Bowel Goal: 7+ Complete [place] Colostomy Y/N: No Bowel Incontinent/Continent: Continent Bowel Number of Accidents: 0 Number of times Incontinent of: 0 Cleaning Ability-Bowel: 1 Total Assistance Toileting Ability: 5 Supervision/Setup Vital Signs Vital Signs Date Time Temp Pulse Resp B/P Pulse Ox O2 Delivery O2 Flow Rate FiO2 06/15/16 08:48 97.3 79 20 136/77 Room Air 06/14/16 19:41 95 Current Medications Current Medications Medications (Trade) Dose Ordered Sig/Robinson Route PRN Reason Start Time Stop Time Status Last Admin Dose Admin Atorvastatin Calcium (LIPITOR 40 mg) 40 mg DAILY PO 06/07/16 09:00 06/15/16 08:28 Cyclobenzaprine HCl (Flexeril) 10 mg TID PO 06/06/16 21:00 06/15/16 08:28 Diphenhydramine HCl (Benadryl) 50 mg Q6HR PRN PO ITCHING 06/06/16 19:00 06/14/16 02:04 Docusate Sodium (Colace) 100 mg BID PO 06/06/16 21:00 06/15/16 08:28 Escitalopram Oxalate (LEXAPRO 20mg) 20 mg DAILY PO 06/07/16 09:00 06/15/16 08:28 Acetaminophen/ Hydrocodone Bitart ([place] 5/325) 1-2 Q6HR PRN PO PAIN 06/06/16 19:00 06/14/16 11:59 Lidocaine (Lidoderm) 1 patch DAILY TD 06/07/16 09:00 06/15/16 09:33 Lorazepam (Ativan) 0.5 mg Q4HR PRN PO AGITATION 06/06/16 19:00 06/14/16 23:56 Metoprolol Tartrate (Lopressor) 25 mg BIDWM PO 06/07/16 08:00 06/15/16 08:28 Torsemide (Demadex) 40 mg DAILY PO 06/07/16 09:00 06/15/16 08:28 Acyclovir (Zovirax) 400 mg BID PO 06/06/16 21:00 06/15/16 08:28 Non-Formulary Medication 40 unit HS SQ 06/06/16 22:00 06/07/16 11:42 DC 06/06/16 22:41 Insulin Aspart (Novolog) 18 unit TIDWM SQ 06/07/16 08:00 06/07/16 11:42 DC 06/07/16 08:29 Trazodone HCl (Desyrel) 150 mg HS PO 06/06/16 22:00 06/14/16 20:56 Lidocaine (Lidoderm Patch Removal) 1 removal 2100 TOP 06/06/16 21:00 06/14/16 20:58 Insulin Aspart (Novolog) SS PRN SQ 06/07/16 06:30 06/14/16 06:14 Insulin Aspart (Novolog) 18-35 UNITS Madhavi... TIDWM SQ 06/07/16 12:00 06/09/16 13:18 DC 06/09/16 12:30 Non-Formulary Medication 60 unit HS SQ 06/07/16 22:00 06/12/16 10:36 DC 06/11/16 19:55 Calcium Citrate/ Ergocalciferol (Citracal + D) 1 tab BID PO 06/08/16 21:00 06/15/16 08:28 Fluticasone Propionate (Flonase) 1 spray BIDHS PRN EA NOSTRIL 06/09/16 00:15 06/09/16 00:30 Zolpidem Tartrate (AMBIEN 10mg) 10 mg HS PO 06/09/16 22:00 06/14/16 17:45 DC 06/13/16 22:34 Insulin Aspart (Novolog) 8-35 UNITS Patient june... TIDWM SQ 06/09/16 17:30 06/15/16 12:09 Non-Formulary Medication 66 unit HS SQ 06/12/16 22:00 06/14/16 20:57 Comments declined lidocaine patch. Did not use TLSO brace. Blood sugars uncontrolled, pt determined to use his personal dosing system, but sugars very labile with this. Physical Therapy Bed Transfer Ability: 3 Moderate Assistance Bed Transfer Assistance Needed: 2 Persons Bed FIM Score Reason: dizzy related to Ativan, pivot transfer WC Chair Transfer Ability: 4 Minimal Assistance Chair Transfer Assistance Need: 1 Person Chair FIM Score Reason: had 2nd person available Overall Wheelchair Transfer Ab: 3 Moderate Assistance Wheelchair Transfer Assistance: 2 Persons Wheelchair Transfer FIM Score: dizzy related to Ativan, pivot transfer WC Overall Toilet / Commode Trans: 3 Moderate Assistance Ambulation Ability: 4 Minimal Assistance Ambulation Assistance Needed: 1 Person Walk FIM Score Reason: Not safe to demo at this time due to non-compliance with TLSO. Ambulation Distance: 160 Comments More cooperative last few days. Occupational Therapy Grooming Ability: 5 Supervision/Setup Bathing Ability: 1 Total Assistance Upper Body Dressing Ability: 5 Supervision/Setup Lower Body Dressing Ability: 4 Minimal Assistance Toileting FIM Score Reason: supervision with gwen hygiene. Care Plan Condition at time of discharge: Fair IRU Discharge Disposition: Home Health Service Interventions/Goals Plan d/c Monday. Front wheeled walker, rails Barriers to d/c, safety , cognition, attitude, balance. Recommend home health. WEST MAY MD June 15, 2016 13:20
[2016-06-15] MEDS ORDERED: ZOLPIDEM 5 MG TABLET PO PRN (13:30)
[2016-06-15 16:24] VITALS: BP 155/72; PULSE 82; RESP 20; TEMP 98; O2SAT 96
--- NOTE | 2016-06-15 18:17 | NUR ---
CM POSSIBLE DC DATE IS 06-17-16. CALLED PT'S , UPDATED HER ON THIS. SHE WAS AWARE OF THIS AND AGREEABLE. SHE SAID SHE WANTS TO MAKE SURE THAT HE CAN GET UP AND GO TO THE BATHROOM ON HIS OWN OR GET UP AND GET A DRINK OF WATER ON HIS OWN. REVIEWED DME: PT WILL NEED A WIDE WALKER. SAID THEY DO NOT HAVE THIS AT HOME, AND THIS WORKER WILL ARRANGE FOR THIS, THEN. REVIEWED ROTP; SHE IS STILL WANTING THIS. REVIEWED HOME HEALTH; SHE WAS AGREEABLE TO THIS. SHE SAID SHE FEELS HE IS MAKING PROGRESS AND GETTING STRONGER. SHE SAID SHE CAN SEE A DIFFERENCE IN HIS ATTITUDE. SHE SAID SHE IS GOING TO WORK ON GETTING SOME RAILS INSTALLED IN THE SHOWER.
[2016-06-15 20:00] VITALS: BP 133/67; PULSE 86; RESP 24; TEMP 97.9; O2SAT 94
--- NOTE | 2016-06-15 20:00 | NUR ---
SHIFT SUMMARY PT HAS BEEN OUT TO DINING ROOM FOR MEALS. AMBULATES WITH FWW AND GAIT BELT. PT HAS BEEN COMPLIANT WITH TLSO BRACE. PT REPORTED NO PAIN THIS SHIFT. PT DID REPORT SOME DIZZINESS THIS AFTERNOON WHEN WORKING WITH THERAPY. BGM WAS ASSESSED AT THIS TIME. PT WAS FOUND TO HAVE A BGM OF 46. PT WAS GIVEN GRAPE JUICE. REASSESSED 15 MINUTES LATER BGM WAS FOUND TO BE 66. PT WAS GIVEN ANOTHER GRAPE JUICE DINNER WAS STILL ABOUT AN HOUR OFF. PT IS CURRENTLY RESTING IN BED.
[2016-06-15] MEDS: [UNRECOGNIZED DRUG - OTHER] SQ SCH (21:41)
[2016-06-15] MEDS: INSULIN GLARGINE SQ SCH (21:41)
[2016-06-15] MEDS: TRAZODONE 100 MG TABLET PO SCH (21:42)
[2016-06-15] MEDS: LIDOCAINE PATCH REMOVAL TOP SCH (21:49)
[2016-06-15] MEDS: LORAZEPAM 0.5 MG TABLET PO PRN (23:24)
--- NOTE | 2016-06-16 02:48 | NUR ---
Chart Check 24 hour chart check completed
--- NOTE | 2016-06-16 04:46 | NUR ---
Shift Summary Pt A&O, afebrile, VSS, remains on RA and home CPAP at NOC, no IV access, adequate U/O per BRP with gait belt and FWW, no BM this TOD. Pt managing home insulin per orders. Pt continues to be noncompliant with TLSO brace. Pt c/o insomnia, PRN PO Ativan given and effective. Pt took SCD's off stated "they're making me hot". Pt educated on all aspects of plan of care, all questions answered and concerns addressed. All fall precautions in place, personal items within reach, and bed alarm activated. Will continue to monitor.
[2016-06-16] MEDS: INSULIN ASPART 100 UNIT/ML SQ PRN ×2 (06:23→08:26)
[2016-06-16 08:05] VITALS: BP 117/69; PULSE 89; RESP 18; TEMP 98.2; O2SAT 94
[2016-06-16] MEDS: HYDROCODONE/APAP 5 mg/325 mg TABLET PO PRN (08:24)
[2016-06-16] MEDS: CALCIUM CITRATE PO SCH ×2 (08:27→21:13)
[2016-06-16] MEDS: ESCITALOPRAM 20 MG TABLET PO SCH (08:27)
[2016-06-16] MEDS: ATORVASTATIN 40 MG TABLET PO SCH (08:27)
[2016-06-16] MEDS: CYCLOBENZAPRINE 10 MG TABLET PO SCH ×3 (08:27→21:13)
[2016-06-16] MEDS: CHOLECALCIFEROL PO SCH ×2 (08:27→21:13)
[2016-06-16] MEDS: TORSEMIDE 20 MG TABLET PO SCH (08:27)
[2016-06-16] MEDS: INSULIN ASPART 100 UNIT/ML SQ SCH ×3 (08:27→17:42)
[2016-06-16] MEDS: DOCUSATE SODIUM 100 MG CAPSULE PO SCH ×2 (08:27→21:13)
[2016-06-16] MEDS: ACYCLOVIR 200 MG CAPSULE PO SCH ×2 (08:28→21:13)
[2016-06-16] MEDS: LIDOCAINE 5% PATCH TD SCH (09:00)
--- NOTE | 2016-06-16 14:07 | PNPDOC ---
IRU Subjective Date DATE: 06/15/16 TIME: 14:03 Subjective Patient has been more cooperative with physical therapy, more aware of safety issues. He is eager to meet his goal and leave Monday. IRU Objective Vital Signs Vital signs Vital Signs Date Time Temp Pulse Resp B/P Pulse Ox O2 Delivery O2 Flow Rate FiO2 06/16/16 08:05 98.2 89 18 117/69 94 Room Air Height (Feet): 5 Height (Inches): 11.00 Weight (Kilograms): 139.600 General General Appearance: Alert, Orientated x 2 Respiratory (Brief) Respiratory: FOUND: clear all noel, equal bilaterally, NOT FOUND: rales, wheezes Cardiovascular (Brief) Cardiac: FOUND: regular rate, regular rhythm Capillary Refill: <2 sec Laboratory Laboratory Laboratory Tests Test 06/14/16 17:17 06/14/16 20:50 06/15/16 02:34 06/15/16 06:42 Glucometer 73mg/dL 111mg/dL 365mg/dL 192mg/dL Test 06/15/16 11:23 06/15/16 15:42 06/15/16 15:57 06/15/16 17:52 Glucometer 216mg/dL 46mg/dL 66mg/dL 164mg/dL Test 06/15/16 21:20 06/16/16 06:13 06/16/16 08:18 06/16/16 12:00 Glucometer 233mg/dL 383mg/dL 315mg/dL 94mg/dL Assessment & Plan Problems: (1) Dyspnea Status: Acute Assessment & Plan: Patient still not wearing oxygen, feels like he is doing okay without it. We have discussed the risks of hypoxemia chronic. (2) VTE (venous thromboembolism) Status: Chronic Assessment & Plan: Medical management (3) Diabetes type I Status: Chronic Assessment & Plan: Medical management (4) T12 burst fracture Qualifiers: Encounter type: subsequent encounter Assessment & Plan: Patient is gaining strength, but still has issues with stability and safety. He is feeling more cooperative and working harder with a goal of leaving Monday. We'll reassess on Monday. He does not wear the TLSO brace, we have discussed risks of not using the brace. Code Status Full Code Interventions to Obtain Goals PT Treatment Plan: Therapeutic Exercise, Gait Training, Functional Activities , Patient/Family Education OT Treatment Plan: ADL's (basic care), Ther. Exercise for ADL's, UE Functional Training, Balance Training, Pt./Family Education ST Treatment Plan: Evaluation Only Hospital Course Summary Disclaimer The hospital course summary below is not to be considered part of the above Progress Note. Hospital Course Summary 06/07/16 Agree with admission to IRU. Dr. May spoke with Dr. Hill about the accidental discontinuation of the Hemovac drain. He recommends to simply watch it for infection and reapply dressing as needed. Hypoxia - sats decreased to 83% on room air while working with PT. Will obtain CXR (CXR from [facility] showed cardiomegaly). Start monitoring continuous pulse oximetry and apply oxygen as needed to maintain sats >90%. May need diuresis - pt reports an increase in B/L lower extremity edema since the accident. He is on torsemide 40 mg daily. Creatinine on admission was 1.7 - baseline. DM type 1 - sees an insulator technician in [place]. Monitor glucose; pt approved to manage his own insulin dosing schedule. Normocytic anemia - chronic. Hgb 9.0 on IRU admission. Multiple myeloma - weekly chemo; managed by Dr. Chung. Consult Dr. Geronimo for metabolic bone workup. Hx DVT - continue Xarelto. 06/08/16 Generally doing well, patient reports discharge anticipated tomorrow. Superficial skin abrasion left knee with skin tag-optimally skin tag should be removed which will attempt to do in the morning. Mild hypoglycemia earlier in the day on chart review. 06/09/16 Hypoglycemia: Would recommend to reduce his mealtime dosing. He is asymptomatic with hypoglycemia. Necrotic skin trimmed off of abrasion borders and dressing applied by nursing. Back dressing trimmed where it was peeling off, and the bottom was reinforced. Recommended to patient that he should stay in IRU and to delay discharge home. Cognitive evaluation ordered. 06/10/16 Acute encephalopathy: We checked his blood sugar, which was 245. He looks slightly pale and jaundiced. We'll check a CBC, CMP, ammonia, lactate program. Also, tone, and. Will assess vitamin B12, folate, TSH, and pre-albumin because of his acute encephalopathy. We'll also check a urinalysis. He has been afebrile and doesn't have any sustained SIRS criteria. 06/12: [place]. 1. Acute encephalopathy - resolved: * Patient is alert and orientated today and appears improved with use of CPAP. * Labs obtained were unremarkable with the exception of moderate protein calorie malnutrition. Will consult dietary for recommendations. * Recheck labs in AM to monitor blood counts, electrolytes and renal function. * Patient continues to complain of poor sleeping. Sleep disruption may be playing a role in encephalopathy. Continue to monitor for confusion. 2. T-12 burst fracture * Continue with therapy and pain control per Dr. May for strengthening and improvement in functional ability. Patient moves easily in bed without signs of distress. 3. Diabetes, uncontrolled: * Blood sugars remain variable with noted hyperglycemia in AMs (>250 since admission). Will increase Lantus 10% to 66 units HS and continue to monitor blood sugars closely. * Continue to adjust daytime insulin as indicated with sliding scale available. May consider consulting Dr. Jackman for additional expertise. 4. Stage 3 CKD: * Follows with Dr. Erwin. Renal function at base line per prior lab records. Continue to monitor periodically. 5. COLLEEN on CPAP: * Patient agreeable to using CPAP, and states that he has been using it more recently. Nursing reports improvement in behaviors and confusion since increased use with CPAP. Continue to have nursing assist with placement of equipment or call respiratory therapy during naps and at night. * Sedatives and narcotics need to be minimized and Ambien should certainly only be used in conjunction with CPAP. Monitor closely. 6. Lower extremity edema: * Recommend elation while resting in bed and consider MAHI hose. 7. Multiple myeloma: - New diagnosis - moderate protein calorie. 06/14/16 Continue to work on better glucose control. Lantus was increased to 66 units at at bedtime. Patient decides on how much NovoLog insulin. He receives with meals. At noon today he took 26 units, 24 units with breakfast, 15 units last evening with supper. This is likely why patient does have some technical support representative hyperglycemia. [place] and Lidoderm for pain control Ambien at HS to help with sleeping. Monitor for hallucinations. Continue to encourage work with PT and OT for ongoing strengthening and fall reduction Pt is hopeful for discharge in the near future WEST MAY MD June 16, 2016 14:06
--- NOTE | 2016-06-16 15:48 | NUR ---
CM SPOKE WITH PT, RE: ANTICIPATED RELEASE TOMORROW. PT VERY EAGER FOR THIS. REVIEWED ROTP AND HOME HEALTH; HE IS AGREEABLE TO THIS. PROVIDED HOME HEALTH LIST, HE HAD NO PREFERENCE. EXPLAINED [facility], DISCLOSED THE FINANCIAL RELATIONSHIP, AND HE WAS AGREEABLE TO THIS. REVIEWED IM LETTER WITH PT; PT SIGNED IT WITH NO QUESTIONS/CONCERNS. HE GAVE PERMISSION TO UPDATE HIS . LEFT MESSAGE WITH . Addendum: 06/16/16 at 1550 by DANIELA MCGHEE Amended: Links added.
[2016-06-16 15:58] VITALS: BP 150/67; PULSE 79; RESP 18; TEMP 97.4; O2SAT 94
--- NOTE | 2016-06-16 19:00 | NUR ---
SHIFT SUMMARY PATIENT ALERT AND ORIENTED, C/O PAIN ONCE IN AM, PRN PAIN MED GIVEN, PAIN REPORTED AT A TOLERABLE LEVEL AFTER DOSE.. UP WITH ONE ASSIST WITH GAIT BELT AND WALKER TO TRANSFER TO WHEELCHAIR. PATIENT COMPLIANT WITH TLSO BRACE TODAY, WORE IT WHILE UP. PATIENT'S CONCERNED ABOUT SURGICAL DRESSING, S/W DR EDMOND'S NURSE ABOUT DRESSING REMOVAL AND CARE. NOTIFIED HOSPITALIST OR NURSE'S RECOMMENDATIONS. RECEIVED ORDER TO REMOVE DRESSING AND COVER WITH ABD PAD, CHANGE DAILY. PATIENT MANAGING OWN INSULIN DOSING. EPISODE OF ASYMPTOMATIC LOW BLOOD GLUCOSE, 52. GRAPE JUICE GIVEN, , BLOOD GLUCOSE 60, 2ND GRAPE JUICE GIVEN, BLOOD GLUCOSE 93. WILL CONT TO MONITOR.
[2016-06-16] MEDS: LIDOCAINE PATCH REMOVAL TOP SCH (21:00)
[2016-06-16] MEDS: TRAZODONE 100 MG TABLET PO SCH (21:13)
[2016-06-16 21:17] VITALS: BP 146/69; PULSE 83; RESP 18; TEMP 98.2; O2SAT 95
[2016-06-16] MEDS: INSULIN GLARGINE SQ SCH (21:18)
[2016-06-16] MEDS: [UNRECOGNIZED DRUG - OTHER] SQ SCH (21:18)
--- NOTE | 2016-06-17 00:19 | NUR ---
Chart Check 24 hour chart check completed
--- NOTE | 2016-06-17 04:40 | NUR ---
Summary Patient has been pleasant and cooperative tonight. He has not called many times, and mostly just to use the restroom. He is alert and oriented times three. When I asked to remove his Lidoderm patch he told me he did not have one on. I looked at his back and did not see one. Dressing to back is clean, dry and intact. Pt would only take 30 units of his bedtime insulin last night. His blood sugar was 143 at that time. He manages his own CPAP. Vitals have been stable. BP a little high last night at 146/69. He is in bed with side rails up times three, bed alarm on and side rails up times two.
[2016-06-17] MEDS: INSULIN ASPART 100 UNIT/ML SQ PRN (06:35)
[2016-06-17 08:36] VITALS: BP 135/61; PULSE 90; RESP 18; TEMP 97.7; O2SAT 94
[2016-06-17] MEDS: TORSEMIDE 20 MG TABLET PO SCH (08:36)
[2016-06-17] MEDS: ATORVASTATIN 40 MG TABLET PO SCH (08:36)
[2016-06-17] MEDS: CYCLOBENZAPRINE 10 MG TABLET PO SCH ×2 (08:37→15:00)
[2016-06-17] MEDS: CALCIUM CITRATE PO SCH (08:37)
[2016-06-17] MEDS: DOCUSATE SODIUM 100 MG CAPSULE PO SCH (08:37)
[2016-06-17] MEDS: LIDOCAINE 5% PATCH TD SCH (08:37)
[2016-06-17] MEDS: ESCITALOPRAM 20 MG TABLET PO SCH (08:37)
[2016-06-17] MEDS: CHOLECALCIFEROL PO SCH (08:37)
[2016-06-17] MEDS: ACYCLOVIR 200 MG CAPSULE PO SCH (08:37)
[2016-06-17 08:40] VITALS: PULSE 90; RESP 18
[2016-06-17] MEDS: INSULIN ASPART 100 UNIT/ML SQ SCH ×2 (08:41→12:08)
[2016-06-17] MEDS ORDERED: LORA0.5T86 PO (10:18)
[2016-06-17] MEDS ORDERED: TORS20TA4 PO (10:18)
[2016-06-17] MEDS ORDERED: HYDR-3989 PO (10:18)
[2016-06-17] MEDS ORDERED: ACYC400T PO (10:18)
[2016-06-17] MEDS ORDERED: METO25TA6 PO (10:18)
[2016-06-17] MEDS ORDERED: ATOR40TA64 PO (10:18)
[2016-06-17] MEDS ORDERED: CYCL-375 PO (10:18)
[2016-06-17] MEDS ORDERED: INSU100V13 SQ (10:18)
[2016-06-17] MEDS ORDERED: ESCI20TA30 PO (10:18)
[2016-06-17] MEDS ORDERED: INSULIN GLARGINE HUM REC ANLOG SQ (10:18)
[2016-06-17] MEDS ORDERED: ZOLP5TAB8 PO (10:18)
[2016-06-17] MEDS ORDERED: RIVA20TA PO (10:22)
--- NOTE | 2016-06-17 10:54 | NUR ---
PAO CM IN TO VISIT WITH PT. HE IS ALERT AND ORIENTED. HE CONFIRMS THAT HE PLANS TO DC HOME WITH [facility]. HE IS AWARE THAT FWW WAS ORDERED FOR DELIVERY TODAY. PAO SPOKE WITH HOME MEDICAL. THEY PLAN TO DELIVERY FWW BEFORE 1500. THEY WILL CALL CM IF DELIVERY TIME CHANGES.
[2016-06-17] MEDS ORDERED: RIVAROXABAN 20 MG TABLET PO ONE (12:00)
--- NOTE | 2016-06-17 13:29 | PNPDOC ---
Subjective Date DATE: 06/17/16 TIME: 13:15 Subjective Ray is seen today in follow up. He is excited to be discharged home today. He denies having shortness of breath or GI complaints. We discussed medications, and importance of insulin and glucose management. Pt states "you are giving me too many pills. I will go home and take whatever I want to take". Objective Vital Signs Vital signs Vital Signs Date Time Temp Pulse Resp B/P Pulse Ox O2 Delivery O2 Flow Rate FiO2 06/17/16 08:40 90 18 06/17/16 08:36 97.7 135/61 94 Room Air Height (Feet): 5 Height (Inches): 11.00 Weight (Kilograms): 139.600 General General Appearance: Alert, Orientated x 3, Cooperative, No Acute Distress Eyes (Brief) Eyes: FOUND: EOMI ENMT (Brief) ENMT: FOUND: mucosa moist, normal dentition, NOT FOUND: pharnyx erythema Neck (Brief) Neck: FOUND: midline, NOT FOUND: adenopathy, carotid bruits, tracheal deviation Respiratory (Brief) Respiratory: FOUND: clear all noel, equal bilaterally, NOT FOUND: wheezes Cardiovascular (Brief) Cardiac: FOUND: regular rate, regular rhythm, NOT FOUND: murmur, pedal edema Capillary Refill: <2 sec Abdomen (Brief) Abdominal: FOUND: BS normo active x4, soft, NOT FOUND: distended, tender Lymphatic (Brief) Lymphatic: NOT FOUND: adenopathy Musculoskeletal (Brief) Musculoskeletal: NOT FOUND: tenderness Integumentary (Brief) Integumentary: FOUND: dry, pink, warm Neurologic (Brief) Neurological: FOUND: cranial 2-12 intact Psychiatric (Brief) Psychiatric: FOUND: alert, attentive, normal affect, oriented Assessment & Plan Problems: (1) T12 burst fracture Qualifiers: Encounter type: subsequent encounter Assessment & Plan: T9-L2 decompression with laminectomy and fusion, and a Hemovac was placed. Dr. Hill recommended to discontinue if it drained less than 30 mL's in 8 hours. This was accidentally discontinued on 06/07/16 around 0430, and Dr. Hill recommended to monitor for infection and to replace dressing as needed. F/U with Dr. Hill on 06/14/16 at 1430 (2) Acute encephalopathy Status: Resolved (3) Hypoxia Status: Resolved Assessment & Plan: Sats decreased to 83% on room air with PT (4) Lower extremity edema Status: Acute Qualifiers: Laterality: bilateral Qualified Codes: R60.0 - Localized edema (5) VTE (venous thromboembolism) Status: Chronic Assessment & Plan: on Xarelto (6) Multiple myeloma Status: Chronic Assessment & Plan: Sees Dr. Chung (7) Diabetes type I Status: Chronic Assessment & Plan: Dx age 19 (8) CKD (chronic kidney disease) stage 3, GFR 30-59 ml/min Status: Chronic Assessment & Plan: sees Dr. Erwin (9) COLLEEN on CPAP Status: Chronic (10) Morbid obesity with BMI of 45.0-49.9, adult Status: Chronic (11) Abrasion of left knee Status: Acute Assessment & Plan: Status post fall on 06/08/16 Plan/Intensity of Service 06/17/16 Planning for discharge home today with . Planning on home health. Discussed discharge meds and insulin with patient. He is resistant to assistance with sliding scale insulin or other medical recommendations. [place] and Lidoderm for pain control Continue to encourage work with PT and OT for ongoing strengthening and fall reduction Recommend follow up with [facility] Code Status Full Code Hospital Course Summary Disclaimer The hospital course summary below is not to be considered part of the above Progress Note. Hospital Course Summary 06/07/16 Agree with admission to IRU. Dr. Rhodes spoke with Dr. Hill about the accidental discontinuation of the Hemovac drain. He recommends to simply watch it for infection and reapply dressing as needed. Hypoxia - sats decreased to 83% on room air while working with PT. Will obtain CXR (CXR from [facility] showed cardiomegaly). Start monitoring continuous pulse oximetry and apply oxygen as needed to maintain sats >90%. May need diuresis - pt reports an increase in B/L lower extremity edema since the accident. He is on torsemide 40 mg daily. Creatinine on admission was 1.7 - baseline. DM type 1 - sees an punch finisher in [place]. Monitor glucose; pt approved to manage his own insulin dosing schedule. Normocytic anemia - chronic. Hgb 9.0 on IRU admission. Multiple myeloma - weekly chemo; managed by Dr. Chung. Consult Dr. Geronimo for metabolic bone workup. Hx DVT - continue Xarelto. 06/08/16 Generally doing well, patient reports discharge anticipated tomorrow. Superficial skin abrasion left knee with skin tag-optimally skin tag should be removed which will attempt to do in the morning. Mild hypoglycemia earlier in the day on chart review. 06/09/16 Hypoglycemia: Would recommend to reduce his mealtime dosing. He is asymptomatic with hypoglycemia. Necrotic skin trimmed off of abrasion borders and dressing applied by nursing. Back dressing trimmed where it was peeling off, and the bottom was reinforced. Recommended to patient that he should stay in IRU and to delay discharge home. Cognitive evaluation ordered. 06/10/16 Acute encephalopathy: We checked his blood sugar, which was 245. He looks slightly pale and jaundiced. We'll check a CBC, CMP, ammonia, lactate program. Also, tone, and. Will assess vitamin B12, folate, TSH, and pre-albumin because of his acute encephalopathy. We'll also check a urinalysis. He has been afebrile and doesn't have any sustained SIRS criteria. 06/12: [place]. 1. Acute encephalopathy - resolved: * Patient is alert and orientated today and appears improved with use of CPAP. * Labs obtained were unremarkable with the exception of moderate protein calorie malnutrition. Will consult dietary for recommendations. * Recheck labs in AM to monitor blood counts, electrolytes and renal function. * Patient continues to complain of poor sleeping. Sleep disruption may be playing a role in encephalopathy. Continue to monitor for confusion. 2. T-12 burst fracture * Continue with therapy and pain control per Dr. Rhodes for strengthening and improvement in functional ability. Patient moves easily in bed without signs of distress. 3. Diabetes, uncontrolled: * Blood sugars remain variable with noted hyperglycemia in AMs (>250 since admission). Will increase Lantus 10% to 66 units HS and continue to monitor blood sugars closely. * Continue to adjust daytime insulin as indicated with sliding scale available. May consider consulting Dr. Jackman for additional expertise. 4. Stage 3 CKD: * Follows with Dr. Erwin. Renal function at base line per prior lab records. Continue to monitor periodically. 5. COLLEEN on CPAP: * Patient agreeable to using CPAP, and states that he has been using it more recently. Nursing reports improvement in behaviors and confusion since increased use with CPAP. Continue to have nursing assist with placement of equipment or call respiratory therapy during naps and at night. * Sedatives and narcotics need to be minimized and Ambien should certainly only be used in conjunction with CPAP. Monitor closely. 6. Lower extremity edema: * Recommend elation while resting in bed and consider MAHI jensen. 7. Multiple myeloma: - New diagnosis - moderate protein calorie. 06/14/16 Continue to work on better glucose control. Lantus was increased to 66 units at at bedtime. Patient decides on how much NovoLog insulin. He receives with meals. At noon today he took 26 units, 24 units with breakfast, 15 units last evening with supper. This is likely why patient does have some early childhood coordinator hyperglycemia. [place] and Lidoderm for pain control Ambien at HS to help with sleeping. Monitor for hallucinations. Continue to encourage work with PT and OT for ongoing strengthening and fall reduction Pt is hopeful for discharge in the near future TOM MATHEW APRN June 17, 2016 13:20
--- NOTE | 2016-06-17 13:30 | NUR ---
Gómez Rai APRN requested to have Dr. Hill's nurse verify that the pt is able to restart his Xarelto. Spoke with Princess at Dr. Hill's office which she confirmed that it is okay for him to be on the Xarelto.
--- NOTE | 2016-06-17 15:12 | NUR ---
OT NOTE: Pt declined tx this date 2x both AM and PM txs. Pt was encouraged to alert support staff if he changes his minds or if he or his have any questions or concers, with ADLs at home. Will continue to follow and address POC.
--- NOTE | 2016-06-17 15:30 | NUR ---
Shift Summary Pt is laying in the bed at this time. Ambulates with assist of 1, FWW, and gait belt; wears his TLSO brace when up. Denied pain this shift. Ate well for all meals, did not need assist with his tray, took the wheelchair to the dining room; wheeling himself. BGM at 1130 was 82, pt regulated what the amounts of insulin he received were. Has been continent this shift, able to manage his own clothing and cares. When in bed or the chair the alarm is in use and call light is within reach.
--- NOTE | 2016-06-17 15:50 | NUR ---
Discharge Pt dismissed to home with his . Took the wheelchair to the ER entrance escorted by staff, transferred to the car with assist of 1, FWW, and gait belt. Dressing to the back was changed before discharge, old was removed and placed 4x4 gauze and tape to the incision. He denied any pain. Discharge instructions reviewed with pt and , prescriptions given to , all questions answered that the pt and his had. All of the pts home medications were returned to him, Trujeo insulin injection. Pt had all of his belongings were gathered and sent home with pt.
--- NOTE | 2016-06-18 12:13 | PDONTRACK ---
Right on Track Program Date of Discharge June 17, 2016 at 15:50 Scheduled Acyclovir (Acyclovir), 400 MG PO BID Atorvastatin Calcium (Atorvastatin Calcium), 40 MG PO DAILY Cyclobenzaprine HCl (Cyclobenzaprine HCl), 10 MG PO TID Docusate Sodium (Colace), 1 CAP PO BID, (Reported) Escitalopram Oxalate (Escitalopram Oxalate), 20 MG PO DAILY Insulin Aspart (Novolog), 8-35 UNIT SQ TIDWM Lidocaine (Lidoderm), 1 PATCH TD DAILY, (Reported) Lorazepam (Ativan), 0.5 MG PO Q6HPRN Metoprolol Tartrate (Metoprolol Tartrate), 25 MG PO BIDWM Rivaroxaban (Xarelto), 20 MG PO O Torsemide (Torsemide), 40 MG PO DAILY Trazodone HCl (Trazodone HCl), 150 MG PO HS, (Reported) [(NF) (Insulin Glargine,Hum.rec.anlog (Toujeo Solostar))], 66 UNIT SQ HS Scheduled PRN Hydrocodone/Apap ([place] 5-325 Tablet), 1-2 TAB PO Q4HPRN PRN for PAIN Zolpidem Tartrate (Zolpidem Tartrate), 2.5 MG PO HS PRN for INSOMNIA Discontinued Medications Diphenhydramine HCl (Diphenhydramine HCl), 1 CAP PO [id number], (Reported) Hydromorphone HCl (Hydromorphone HCl), 1 TAB PO Q4HPRN, (Reported) Insulin Glargine,Hum.rec.anlog ([place] Solostar), 40 UNIT SQ HS, (Reported) Insulin Lispro (Humalog), 0 SQ TIDWM, (Reported) Ondansetron (Ondansetron Odt), 4 MG PO Q6HR PRN for NAUSEA &/OR VOMITING, ( Reported) [milk of magnesia], 30 ML PO DAILY PRN for CONSTIPATION, (Reported) Date: June 18, 2016 Right on Track Program: 24 Hour Follow-Up Discharge Summary Received: No Follow up: Follow Up Appt. Scheduled (Dr. Escobar) Education: Diagnosis Ed. Review, Education to Home Service Technician Referrals: Social Work Total LACE Score: 11 Comments I spoke with Brennan Maciass , on 06/18/16. She stated that he's doing fine, but fell last night shortly after getting home. He was in the kitchen and lost his balance, falling onto his side and back. He was not wearing his TLSO brace at the time of the fall. Luckily, she had extra people there and they were able to help him get up. He didn't seem to have any injuries from this fall. He's wearing his TLSO brace today. She didn't have any questions on the discharge instructions, but states that the Xarelto they had been taking from Dr. Escobar were samples, and they are out. He was on 15 mg rather than 20 mg because he bled too much on the 20 mg tablets. After I spoke with her, I called in Xarelto 15 mg #30 to [facility]. Blood sugar was a little high this morning and he gave himself some extra insulin. Home Health also evaluated him this morning. Discussed w/pt and caregiver: Yes Recommendations for follow-up 1. F/U with Dr. Escobar as planned 2. Rx Xarelto 15 mg called to [facility] 3. Continue HH 4. ROTP home visit planned for 06/21/16 at 2:30 pm Problems: (1) T12 burst fracture Assessment & Plan: T9-L2 decompression with laminectomy and fusion - Dr. Hill (2) VTE (venous thromboembolism) Status: Chronic Assessment & Plan: on Xarelto (3) Multiple myeloma Status: Chronic Assessment & Plan: Sees Dr. Chung (4) Diabetes type I Status: Chronic Assessment & Plan: Dx age 19 (5) CKD (chronic kidney disease) stage 3, GFR 30-59 ml/min Status: Chronic Assessment & Plan: sees Dr. Erwin (6) COLLEEN on CPAP Status: Chronic (7) Morbid obesity with BMI of 45.0-49.9, adult Status: Chronic Copies To 1: KAREN ESCOBAR II, MD, KAREN D APRN June 18, 2016 12:11
--- NOTE | 2016-06-21 19:48 | PDONTRACK ---
Right on Track Program Date of Discharge June 17, 2016 at 15:50 Scheduled Acyclovir (Acyclovir), 400 MG PO BID Atorvastatin Calcium (Atorvastatin Calcium), 40 MG PO DAILY Cyclobenzaprine HCl (Cyclobenzaprine HCl), 10 MG PO TID Docusate Sodium (Colace), 1 CAP PO BID, (Reported) Escitalopram Oxalate (Escitalopram Oxalate), 20 MG PO DAILY Insulin Aspart (Novolog), 8-35 UNIT SQ TIDWM Lidocaine (Lidoderm), 1 PATCH TD DAILY, (Reported) Lorazepam (Ativan), 0.5 MG PO Q6HPRN Metoprolol Tartrate (Metoprolol Tartrate), 25 MG PO BIDWM Rivaroxaban (Xarelto), 20 MG PO O Torsemide (Torsemide), 40 MG PO DAILY Trazodone HCl (Trazodone HCl), 150 MG PO HS, (Reported) [(NF) (Insulin Glargine,Hum.rec.anlog (Toujeo Solostar))], 66 UNIT SQ HS Scheduled PRN Hydrocodone/Apap (Eros 5-325 Tablet), 1-2 TAB PO Q4HPRN PRN for PAIN Zolpidem Tartrate (Zolpidem Tartrate), 2.5 MG PO HS PRN for INSOMNIA Discontinued Medications Diphenhydramine HCl (Diphenhydramine HCl), 1 CAP PO [id number], (Reported) Hydromorphone HCl (Hydromorphone HCl), 1 TAB PO Q4HPRN, (Reported) Insulin Glargine,Hum.rec.anlog (Toujeo Solostar), 40 UNIT SQ HS, (Reported) Insulin Lispro (Humalog), 0 SQ TIDWM, (Reported) Ondansetron (Ondansetron Odt), 4 MG PO Q6HR PRN for NAUSEA &/OR VOMITING, ( Reported) [milk of magnesia], 30 ML PO DAILY PRN for CONSTIPATION, (Reported) Date: June 21, 2016 Right on Track Program: 7-14Day Voam-sp-[facility]ost Discharge Summary Received: Yes Care Plan Received: Yes Follow up: Follow Up Appt. Scheduled Education: Diagnosis Ed. 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 PT was just finishing, and he had a good session. I actually also had a phone call from his son, who was there over the weekend. His biggest concern was falling, and he was worried that his mother would try to help Feng get back up, and he didnt want her to hurt herself. His fall risk was discussed in depth during this visit as well. Our entire conversation is summarized below: Resources: Excellent family support, buddhist support, and home health. No immense financial constraints. Strong ethel. Barriers: Feng is stubborn at times and sometimes insists on doing things his own way. His states that hes always been like this. Feng is hard of hearing , and sometimes Colleen thinks he answers a question even though he might not know what was said, and he might miss important instructions. Self-monitoring: His blood sugars have been labile, but they are starting to get better control. He has had some hypoglycemia into the 40-50s. He has difficulty focusing his vision and feels dizzy if his sugar drops into the 40s. His , a former nurse, organizes his medications and understands them well. Medication reconciliation: He is on 7 high-risk medications per Beers criteria. He was taking Ambien in the hospital, but his said that they asked for that in error he takes trazodone at home plus melatonin to help with sleep, which has been effective. Fall Risk: He has fallen every day since discharge home. He has learned to recognize that when his knees and legs start to feel weak, he needs to lower himself down to the ground to prevent a hard fall. He hasnt sustained any injuries despite frequent falls. He uses his walker all the time. He wears his TLSO brace as directed. MACH-10 fall screen score was 5 (indicating at risk). Yesterday, he let himself down gently, and then crawled into the bathroom. When his found him, his walker was lying sideways on the floor, and he was able to pull himself up. Typically, theyve found that if she brings a low chair next to him, he can use his upper body strength to pull himself back up. Colleen has removed all loose rugs. Their house is spacious and there is plenty of room for the walker. He was wearing non-slip shoes. I encouraged them to discuss how to safely get back up after a fall with PT when shes back there on . Also, I will mail them a checklist and another informational brochure on fall prevention. He is evaluated annually by an engineer/conductor. He denies any distal paresthesias or neuropathy. He has not had any pain. Health literacy: He has 2.5 years of college experience and understands written materials from the hospital well. Health literacy is not a concern. Depression screen: Negative. He rates his quality of life as Good. Nutritional screen: Hes lost a total of 25 lbs since starting on Nutrisystem ( he started this before his accident). He is at risk for malnutrition based on recent stress and recent, albeit intentional, weight loss. ADLs & IADLs: He is independent in all. Caregiver burden assessment: Colleen states that she is doing well, and has friends who can help support her if she needs to leave the house for a little while. She feels confident in her ability to care for him. Exam: A&O x3, pleasant FONSECA, facial structures symmetric Lungs CTAB Heart RRR Abd Obese Integument P/W/D. Back incision is healing well. Dressing has been removed. There is swelling surrounding the incision without drainage, erythema, or warmth. Ext 1+ edema b/l; scabbed abrasions to left knee and left hand Discussed w/pt and caregiver: Yes Recommendations for follow-up Plan 1. He has f/u appointments scheduled next week with Dr. Erwin, Dr. Ortiz, and Dr. Torrez. 2. He has an appointment with Dr. Jovel the end of the month. 3. Continue with Home Health and therapy. 4. I will mail them additional information on fall prevention. 5. I will continue to follow him through [facility]. Problems: (1) T12 burst fracture Assessment & Plan: T9-L2 decompression with laminectomy and fusion - Dr. Jovel (2) VTE (venous thromboembolism) Status: Chronic Assessment & Plan: on Xarelto (3) Multiple myeloma Status: Chronic Assessment & Plan: Sees Dr. Chung (4) Diabetes type I Status: Chronic Assessment & Plan: Dx age 19 (5) CKD (chronic kidney disease) stage 3, GFR 30-59 ml/min Status: Chronic Assessment & Plan: sees Dr. Erwin (6) COLLEEN on CPAP Status: Chronic (7) Morbid obesity with BMI of 45.0-49.9, adult Status: Chronic Copies To 1: ETHEL JOVEL MD; MAYTE NÚÑEZ MD, KAREN D APRN June 21, 2016 19:48
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
== END 2016-06-17 15:50 | disposition home health service (06) | DRG 559 ==
PROVIDERS: ADMIT Family Medicine; ATTEND Family Medicine
PROC: F07Z9FZ Gait Training/Functional Ambulation Treatment using Assistive, Adaptive, Supportive or Protective Equipment (ICD-10-PCS; principal; 2016-06-06)
PROC: F07M6ZZ Therapeutic Exercise Treatment of Musculoskeletal System - Whole Body (ICD-10-PCS; 2016-06-06)
PROC: F08Z4ZZ Home Management Treatment (ICD-10-PCS; 2016-06-06)
DX: S22.081D Stable burst fracture of T11-T12 vertebra, subsequent encounter for fracture with routine healing (principal); G93.40 Encephalopathy, unspecified; C90.00 Multiple myeloma not having achieved remission; Z68.41 Body mass index [BMI] 40.0-44.9, adult; E10.22 Type 1 diabetes mellitus with diabetic chronic kidney disease; N18.3 Chronic kidney disease, stage 3 (moderate); G47.33 Obstructive sleep apnea (adult) (pediatric); E66.01 Morbid (severe) obesity due to excess calories; R60.0 Localized edema; S80.212A Abrasion, left knee, initial encounter; Z98.1 Arthrodesis status; Z79.4 Long term (current) use of insulin; Z86.718 Personal history of other venous thrombosis and embolism; W18.30XA Fall on same level, unspecified, initial encounter; Y93.9 Activity, unspecified; Y92.239 Unspecified place in hospital as the place of occurrence of the external cause; Y99.8 Other external cause status; V89.0XXD Person injured in unspecified motor-vehicle accident, nontraffic, subsequent encounter
CPT/HCPCS: 36415; 36600; 80048; 80053; 81001; 82140; 82607; 82746; 82803; 82948; 83540; 83605; 84134; 84145; 84443; 85025

== ENCOUNTER → 2016-06-22 | Outpatient (CLI) | payer MEDICARE, OTHER ==
[~2016-06-22] MED LIST changes: +DOCU-168 PO; +HYDR-3989 PO; -HYDR2TAB56 PO; -IBUP-1724 PO; -INSU100I14 SQ; +INSU100V13 SQ; -INSU300I SQ; +INSULIN GLARGINE HUM REC ANLOG SQ; +LIDO700A3 TD; -LIDOCAINE PATCH TD; +LORA0.5T86 PO; +ZOLP5TAB8 PO
[2016-06-22 13:00] LABS: BASOPHILS % (AUTO) 0.3 % (0-2); EOSINOPHILS # (AUTO) 0.3 T/MM3 (0-0.5); EOSINOPHILS % (AUTO) 4.4 % (0-4); HCT - HEMATOCRIT 32.7 % (41-53); HGB - HEMOGLOBIN 9.8 GM/DL (13.5-17.5); IMMATURE GRANULOCYTE # (AUTO) 0.01 T/MM3 (0.00-0.03); IMMATURE GRANULOCYTE % (AUTO) 0.2 % (0.0-0.5); LYMPHOCYTES # (AUTO) 1.2 T/MM3 (1-4.8); LYMPHOCYTES % (AUTO) 19.5 % (23-45); MEAN CORPUSCULAR HGB 29.3 UUG (26-34); MEAN CORPUSCULAR VOLUME 97.9 UM3 (80-100); MEAN PLATELET VOLUME 9.2 UM3 (9.4-12.4); MONOCYTES # (AUTO) 0.5 T/MM3 (0-0.8); MONOCYTES % (AUTO) 8.1 % (0-9.0); NEUTROPHILS % (AUTO) 67.5 % (33-66); RED BLOOD COUNT 3.34 M/MM3 (4.50-5.90); WBC - WHITE BLOOD COUNT 5.9 T/MM3 (4.5-11.0)
[2016-06-22 13:06] LABS: ALBUMIN 3.1 G/DL (3.5-5.0); ALBUMIN/GLOBULIN RATIO 1.1 RATIO (1.1-2.2); ALKALINE PHOSPHATASE 145 U/L (38-126); ALT (SGPT) 27 U/L (21-72); ANION GAP 11 MEQ/L (5-15); AST (SGOT) 26 U/L (17-59); BUN/CREATININE RATIO 17 RATIO (6-26); CALCIUM 8.6 MG/DL (8.4-10.2); CHLORIDE 102 MEQ/L (98-107); CO2 - CARBON DIOXIDE 33 MEQ/L (22-30); CREATININE 1.5 MG/DL (0.8-1.5); GLOMERULAR FILTRATION RATE 47; GLUCOSE 131 MG/DL (75-110); LDH 572 U/L (313-618); MAGNESIUM 2.3 MG/DL (1.6-2.3); PHOSPHORUS 2.5 MG/DL (2.5-4.5); POTASSIUM 3.9 MEQ/L (3.6-5); SODIUM 146 MEQ/L (134-144); TOTAL PROTEIN 5.9 G/DL (6.3-8.2); URIC ACID 7.4 MG/DL (3.5-8.5)
[2016-06-22 14:36] LABS: IGA - IMMUNOGLOBULIN A 70.44 MG/DL (70-400); IGG - IMMUNOGLOBULIN G 672.53 MG/DL (700-1600); IGM - IMMUNOGLOBULIN M 84.02 MG/DL (40-230)
== END ==
LOC: LABN.NHH 08:33
PROVIDERS: ATTEND Family Medicine
DX: N18.3 Chronic kidney disease, stage 3 (moderate) (principal); E87.70 Fluid overload, unspecified; Z79.4 Long term (current) use of insulin; E79.0 Hyperuricemia without signs of inflammatory arthritis and tophaceous disease; C90.00 Multiple myeloma not having achieved remission; D47.2 Monoclonal gammopathy
CPT/HCPCS: 80053; 82306; 82784; 82785; 83615; 83735; 83883; 83970; 84100; 84155; 84165; 84550; 85025; 86334

== ENCOUNTER → 2016-07-11 | Outpatient (CLI) | payer MEDICARE, OTHER ==
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
== END ==
LOC: IMA 12:39
PROVIDERS: ATTEND Family Medicine
DX: M43.25 Fusion of spine, thoracolumbar region (principal)